=== PATIENT | female | born 1990 | race Caucasian/White ===

== ENCOUNTER → 2018-02-20 06:28 | Outpatient (CLI) | payer OTHER, SELFPAY ==
[2018-02-20 07:29] LABS: Thyroid Stim Hormone (TSH) 2.72 uIU/mL (0.358-3.74)
== END ==
PROVIDERS: Family Provider Physician Assistant; PCP Physician Assistant; Visit Provider Physician Assistant
DX: N92.6 Irregular menstruation, unspecified (principal)
CPT/HCPCS: 36415; 84443

== ENCOUNTER → 2018-11-01 14:40 | Outpatient (CLI) | payer OTHER, SELFPAY ==
[2018-08-25 11:21] VITALS: BMI 27.1
[2018-11-01 15:31] LABS: Absolute Lymphocyte Count 2.45 X10^3/ul (0.83-4.51); Absolute Neutrophil Count 9.7 X10^3/uL (2.0-7.7); Basophil# 0.03 X10^3/uL; Basophil% 0.2 % (0-1); Eosinophil# 0.09 X10^3/uL; Eosinophils% 0.7 % (0-5); Hematocrit 39.8 % (37-47); Hemoglobin 13.4 g/dl (12.0-15.0); Lymphocyte # 2.45 X10^3/ul (4.0); Lymphocyte % 18.6 % (19-41); Mean Corp Hgb Conc 33.7 g/gl (32-36); Mean Corpuscular Hgb 29.4 pg (27.0-32.0); Mean Corpuscular Volume 87.3 fL (81-99); Mean Platelet Vol. 9.8 fl (6.2-12.0); Monocyte# 0.93 X10^3/uL; Monocyte% 7.1 % (0-10); Neutrophil # 9.65 X10^3/uL (2.7-7.7); Neutrophil % 73.2 % (47-70); Platelet Count 207 K/mm3 (150-450); RBC Distribution Width CV 14.2 % (11.6-14.6); RBC Distribution Width SD 45.4 fl (35.1-43.9); Red Blood Count 4.56 M/mm3 (4.2-5.4); White Blood Count 13.2 K/mm3 (4.4-11.0)
[2018-11-01 15:32] LABS: POSITIVE COUNT NO; POSITIVE DIFFERENTIAL NO; POSITIVE MORPHOLOGY NO
[2018-11-01 17:04] LABS: HIV - WCH Non-Reactive (Nonreactive); Rubella IgG 401.7 IU/mL
[2018-11-03 13:25] LABS: HEPATITIS B SURFACE AG Negative (Negative); Hep B Surface Antibodies Reactive (.)
[2018-11-08 02:05] LABS: Rapid Plasmin Reagin (RPR) NONREACTIVE (NONREACTIVE)
== END ==
PROVIDERS: Family Provider Physician Assistant; PCP Physician Assistant; Referring Provider Obstetrics & Gynecology; Visit Provider Obstetrics & Gynecology
DX: Z34.81 Encounter for supervision of other normal pregnancy, first trimester (principal)
CPT/HCPCS: 36415; 85025; 86592; 86703; 86706; 86762; 86850; 86900; 87340

== ENCOUNTER → 2018-12-11 14:21 | Outpatient (CLI) | payer OTHER, SELFPAY ==
[2018-08-25 11:21] VITALS: BMI 27.1
--- NOTE | 2018-12-11 15:01 | EKG12_ITS ---
Test Reason : PALPS Blood Pressure : / mmHG Vent. Rate : 074 BPM Atrial Rate : 074 BPM P-R Int : 142 ms QRS Dur : 088 ms QT Int : 402 ms P-R-T Axes : 053 050 046 degrees QTc Int : 446 ms Sinus rhythm with marked sinus arrhythmia Possible Left atrial enlargement Borderline ECG Confirmed by ALYSSA PEREZ ([id number]), publications editor RICKIE WATKINS ([id number]) on 12/17/2018 11:49:31 AM Referred By: Una Ni Confirmed By:ALYSSA PEREZ
[2018-12-11 16:20] LABS: Thyroid Stim Hormone (TSH) 0.68 uIU/mL (0.358-3.74)
== END ==
PROVIDERS: Family Provider Physician Assistant; PCP Physician Assistant; Referring Provider Obstetrics & Gynecology; Visit Provider Obstetrics & Gynecology
DX: O26.92 Pregnancy related conditions, unspecified, second trimester (principal); R00.2 Palpitations; Z3A.15 15 weeks gestation of pregnancy
CPT/HCPCS: 36415; 84443; 93005

== ENCOUNTER → 2018-12-13 07:42 | Outpatient (CLI) | payer OTHER, SELFPAY ==
[2018-08-25 11:21] VITALS: BMI 27.1
== END ==
PROVIDERS: Family Provider Physician Assistant; PCP Physician Assistant; Referring Provider Obstetrics & Gynecology; Visit Provider Obstetrics & Gynecology
DX: Z34.92 Encounter for supervision of normal pregnancy, unspecified, second trimester (principal)

== ENCOUNTER → 2019-01-17 13:44 | Outpatient (CLI) | payer OTHER, SELFPAY ==
[2019-01-01 12:36] VITALS: BMI 27.6
--- NOTE | 2019-01-17 13:46 | ECHOD_ITS ---
Reason For Study: ARRHYTHMIA Procedure This was a 2D Doppler, Color Flow transthoracic echocardiogram. Exam performed in department. Left Ventricle Normal LV size. Left ventricular systolic function is normal. The estimated ejection fraction is 60 %. Normal diastology for age. No regional wall motion abnormalities noted. Right Ventricle Normal RV size. Normal systolic function. Atria Normal left atrium. Normal right atrium. Mitral Valve Normal mitral valve. Tricuspid Valve Normal tricuspid valve. Aortic Valve Normal aortic valve. Trisinus/trileaflet aortic valve. Pulmonic Valve Normal pulmonic valve. Great Vessels Normal aortic root. The pulmonary artery is normal size. Normal inferior vena cava. Pericardium/Pleural No pericardial effusion. MMode/2D Measurements & Calculations LVIDd: 4.0 cm IVSd: 0.86 cm Ao root diam: 2.4 cm LVIDs: 2.6 cm LVPWd: 0.88 cm RVDd: 3.2 cm FS: 35.3 % LAV(MOD-bp): 46.3 ml LA A4 area: 17.6 cm2 LA dimension(2D): 3.4 cm LAV(MOD-bp) Indexed: 27.4 ml/m2 LAV(MOD-sp2): 43.0 ml LAV(MOD-sp4): 49.6 ml RA A4 area: 10.1 cm2 Time Measurements MV dec time: 0.18 sec Doppler Measurements & Calculations MV E max abel: 93.7 cm/sec Lat Peak E' Abel: 16.3 cm/sec Med Peak E' Abel: 14.3 cm/sec MV A max abel: 63.9 cm/sec E/E' lat: 5.7 E/E' med: 6.6 MV E/A: 1.5 Ao V2 max: 126.6 cm/sec LV V1 max: 110.9 cm/sec PA V2 max: 89.4 cm/sec Ao max P.4 mmHg LV V1 max P.9 mmHg TR max abel: 172.2 cm/sec TR max P.9 mmHg Interpretation Summary Normal LV size. Left ventricular systolic function is normal. The estimated ejection fraction is 60 %. Normal diastology for age. Structurally normal valves. Ordering Physician: Jason Singh Referring Physician: LEOINE GOODEN Performed By: Molly Viveros, ELADIOCS, RVT
== END ==
PROVIDERS: Family Provider Physician Assistant; PCP Physician Assistant; Referring Provider Internal Medicine Cardiovascular Disease; Visit Provider Internal Medicine Cardiovascular Disease
DX: I49.9 Cardiac arrhythmia, unspecified (principal); R94.31 Abnormal electrocardiogram [ECG] [EKG]
CPT/HCPCS: 93306

== ENCOUNTER → 2019-02-21 10:18 | Outpatient (CLI) | payer OTHER, SELFPAY ==
[2019-01-01 12:36] VITALS: BMI 27.6
[2019-02-21 11:57] LABS: Absolute Lymphocyte Count 2.29 X10^3/uL (0.83-4.51); Absolute Neutrophil Count 9.4 X10^3/uL (2.0-7.7); Basophil# 0.03 X10^3/uL; Basophil% 0.2 % (0-1); Eosinophil# 0.11 X10^3/uL; Eosinophils% 0.9 % (0-5); Hemoglobin 11.9 g/dL (12.0-15.0); Lymphocyte # 2.29 X10^3/ul (4.0); Lymphocyte % 18.1 % (19-41); Mean Corp Hgb Conc 33.1 g/dL (32-36); Mean Corpuscular Volume 93.8 fL (81-99); Mean Platelet Vol. 9.3 fl (6.2-12.0); Monocyte# 0.71 X10^3/uL; Monocyte% 5.6 % (0-10); NRBC Flagged by Analyzer 0 % (0-5); Neutrophil % 74.2 % (47-70); Platelet Count 193 K/mm3 (150-450); RBC Distribution Width CV 13.3 % (11.6-14.6); RBC Distribution Width SD 45.6 fl (35.1-43.9); Red Blood Count 3.84 M/mm3 (4.2-5.4); White Blood Count 12.7 K/mm3 (4.4-11.0)
[2019-02-21 12:27] LABS: Glucose Challenge Gest 1H 50g 143 mg/dL (70-140)
== END ==
PROVIDERS: Family Provider Physician Assistant; PCP Physician Assistant; Referring Provider Obstetrics & Gynecology; Visit Provider Obstetrics & Gynecology
DX: Z34.82 Encounter for supervision of other normal pregnancy, second trimester (principal); Z3A.27 27 weeks gestation of pregnancy
CPT/HCPCS: 36415; 82950; 85025

== ENCOUNTER → 2019-03-04 06:44 | Outpatient (CLI) | payer OTHER, SELFPAY ==
[2019-01-01 12:36] VITALS: BMI 27.6
[2019-03-04 08:06] LABS: Glucose GTT-Gestation. Fasting 68 mg/dL (<105)
[2019-03-04 08:32] LABS: Glucose GTT-Gestational 1 Hr 153 mg/dL (<190)
[2019-03-04 09:42] LABS: Glucose GTT-Gestational 2 Hr 121 mg/dL (<165)
[2019-03-04 11:04] LABS: Glucose GTT-Gestational 3 Hr 61 L (<145)
== END ==
PROVIDERS: Family Provider Physician Assistant; PCP Physician Assistant; Referring Provider Obstetrics & Gynecology; Visit Provider Obstetrics & Gynecology
DX: R73.09 Other abnormal glucose (principal); Z36.9 Encounter for antenatal screening, unspecified
CPT/HCPCS: 36415; 82951; 82952

== ENCOUNTER 2019-05-24 07:05 | Inpatient (IN) | payer OTHER, SELFPAY ==
[2019-01-01 12:36] VITALS: BMI 27.6
[2019-05-24 07:24] VITALS: BMI 30.9
[2019-05-24] MEDS: Lactated Ringers 1,000 ML 200 ML IV ×3 (07:45→16:52)
[2019-05-24 08:28] LABS: Absolute Lymphocyte Count 2.48 X10^3/uL (0.83-4.51); Absolute Neutrophil Count 10.9 X10^3/uL (2.0-7.7); Basophil# 0.05 X10^3/uL; Basophil% 0.3 % (0-1); Eosinophils% 0.7 % (0-5); Hematocrit 37.1 % (37-47); Hemoglobin 12.2 g/dL (12.0-15.0); Lymphocyte # 2.48 X10^3/ul (4.0); Lymphocyte % 16.8 % (19-41); Mean Corp Hgb Conc 32.9 g/dL (32-36); Mean Corpuscular Hgb 30.3 pg (27.0-32.0); Mean Corpuscular Volume 92.1 fL (81-99); Mean Platelet Vol. 9.8 fl (6.2-12.0); Monocyte# 0.99 X10^3/uL; Monocyte% 6.7 % (0-10); NRBC Flagged by Analyzer 0 % (0-5); Platelet Count 188 K/mm3 (150-450); RBC Distribution Width CV 14.3 % (11.6-14.6); RBC Distribution Width SD 47.1 fl (35.1-43.9); Red Blood Count 4.03 M/mm3 (4.2-5.4); White Blood Count 14.7 K/mm3 (4.4-11.0)
[2019-05-24] MEDS: Oxytocin 30 units/NS 500 ml 30 UNITS/500 ML IV.SOLN IV (08:57)
--- NOTE | 2019-05-24 10:09 | HP.PCM_ITS ---
- Problem List (1) UTI in , antepartum Status: Acute (2) Encounter for induction of labor Status: Acute History Date of Admission: 05/24/19 Final SANTOSH: 05/17/19 Gestational age: 41 Weeks and 0 Days History of this : This is a 29 year-old, G [3], P [2001], at 41 weeks gestational age for induction of labor due to postdates. Normal course. Medical History: Medical History (Last Reviewed 01/01/19 @ 12:36 by Radha Wilson) History of herniated intervertebral disc Z87.39 Impacted cerumen, right ear H61.21 Segmental and somatic dysfunction of cervical region M99.01 Segmental and somatic dysfunction of thoracic region M99.02 history of vaginal child Allergies Penicillins Allergy (Verified 01/01/19 15:51) hives Home Medications: Home Medications vitamin,calcium,gmlkbcwl-tzfw-dttgf acid tablet 1 tab PO QDAY 09/27/17 Smoking Status: Never smoker Alcohol: None Number of Fetus(es): 1 NST - FHR Rate Baby A Baseline: 140 Variability:: Moderate Accelerations:: 15 x 15 Decelerations:: None NST Reactive:: Yes FHR Category:: Category I Uterine Activity:: Irregular, mild to palpation History Past Pregnancies: Past Pregnancies Delivery Date Name GA/ Weeks Outcome Route Wt Sex Labor Length Anesthesia Delivery Location Provider FOB Labs: Mom's Problem List Problem Status Onset Code UTI in , antepartum Acute O23.40 Encounter for induction of labor Acute Z34.90 Mom's Labs & Results 05/24/19 05/24/19 07:45 07:45 WBC 14.7 H RBC 4.03 L Hgb 12.2 Hct 37.1 MCV 92.1 MCH 30.3 MCHC 32.9 RDW Std Deviation 47.1 H RDW Coeff of Eneida 14.3 Plt Count 188 MPV 9.8 Immature Gran % (Auto) 1.500 H Neut % (Auto) 74.0 H Lymph % (Auto) 16.8 L [place] % (Auto) 6.7 Eos % (Auto) 0.7 Baso % (Auto) 0.3 Absolute Neuts (auto) 10.9 H Absolute Lymphs (auto) 2.48 Nucleated RBC % 0 Blood Type O POSITIVE Antibody Screen NEGATIVE Course Did the patient receive Yes care? Labs Blood Type: O RPR/VDRL/Syphilis Nonreactive Rubella status Immune HbSAg Negative Chlamydia Negative Gonorrhea Negative HIV/AIDS Non-Reactive Group B Strep: Negative Current Obstetrical History Gestational Diabetes No Incompetent Cervix No Infertility No IUGR No Macrosomia No Hypertension/Pre-eclampsia No Placenta Previa/Abruption No PTL/PROM No Uterine anomaly No Oligohydramnios No Polyhydramnios No Multiple gestation No Past Medical History Asthma No Diabetes No Hypertension No Heart disease No Mitral valve prolapse No Neurologic/Seizure disorder/ No Migraines Kidney disease No Liver disease No Varicosities No Clotting disorders/Hx of DVT No Thyroid Dysfunction No Other medical diseases No Psychiatric disorders No Major trauma No Abnormal PAP smear No Sleep apnea No Mammogram in the last 2 years No Social History Marital Status: Alleged father Nick Hx Smoking No Smoking Status Never smoker Review of Systems Constitutional: Denies: Chills, Fever, Weight Change HEENT: Denies: Head Aches, Sinus Congestion, Sinus Drainage Cardiovascular: Denies: Chest Pain, Palpitations Respiratory: Denies: Cough, Shortness of breath at rest, Sputum production Gastrointestinal: Denies: Abdominal Pain, Nausea, Vomiting Genitourinary: Denies: Dysuria Neurological: Denies: Numbness, Tingling, Focal weakness Psychiatric: Denies: Anxiety, Depression, Homicidal Ideations, Suicidal Ideations Physical Exam General: Alert, Oriented x3, No apparent distress HEENT: Atraumatic, Normocephalic Cardiovascular: Regular rate, Regular Rhythm, No murmurs Lungs: Clear to auscultation, Normal air movement, No rhonchi, No wheeze Abdomen: Soft, Gravid Extremities:: No edema Neurological: Deep Tendon Reflexes 2+/4 and Symmetrical. Negative for: Clonus CANDLE CUTTER: Normal external genitalia Estimated gestational size: Appropriate for gestational size Presentation: Cephalic Cervix Dilation (cm): 4 Station: -2 Effacement (%): 60 Assessment/Plan All Active Problems (Last Reviewed 01/01/19 @ 12:36 by Radha Wilson) UTI in , antepartum (Acute) Encounter for induction of labor (Acute) 20 weeks gestation of (Acute) Intermittent palpitations (Acute) Abnormal electrocardiogram (Acute) This is a 29 year-old, G [3], P [2002], at 41 weeks gestational age. A:Induction of labor for postdates Category 1 FHT P: 1) Admit to L&D. Routine labs. IV. 2) Pitocin for active management 3) Positional changes 4) Planning unmedicated , may have nubain or nitrous. Epidural at request 5) notified of admission and patient status.
--- NOTE | 2019-05-24 14:09 | PN.OBGYN_ITS ---
Patient Problems: Active and Suspected Problems (Last Reviewed 01/01/19 @ 12:36 by Radha Wilson) UTI in , antepartum (Acute) Encounter for induction of labor (Acute) Subjective: Coping well with contractions, at bedside. Rating pain 3/10. Up walking. Objective: 5/-1, vertex AROM large amount of clear fluid TOCO: q3-4min, moderate 145, moderate variability, accels, no decels, Category 1 - Physical Exam Vitals/I&O's: Weight: 169 lb 8 oz Body Mass Index (BMI) 30.9 Intake and Output for Last 24 Hours 05/22/19 05/23/19 05/24/19 23:59 23:59 23:59 Intake Total 799.60 / 799.60 Balance 799.60 / 799.60 Laboratory Results 05/24/19 07:45: WBC 14.7 H, RBC 4.03 L, Hgb 12.2, Hct 37.1, MCV 92.1, MCH 30.3, MCHC 32.9, RDW Std Deviation 47.1 H, RDW Coeff of Eneida 14.3, Plt Count 188, MPV 9.8, Immature Gran % (Auto) 1.500 H, Neut % (Auto) 74.0 H, Lymph % (Auto) 16.8 L , [place] % (Auto) 6.7, Eos % (Auto) 0.7, Baso % (Auto) 0.3, Absolute Neuts (auto) 10.9 H, Absolute Lymphs (auto) 2.48, Nucleated RBC % 0 05/24/19 07:45: Blood Type O POSITIVE, Antibody Screen NEGATIVE Current Medications Acetaminophen (Tylenol) 325 - 650 mg PO Q4H PRN PRN PRN Reason: Pain Score 1-3/10 Al Hydroxide/Mg Hydroxide (Mylanta Ii) 15 - 30 ml PO Q4H PRN PRN PRN Reason: INDIGESTION Citric Acid/Sodium Citrate (Bicitra) 30 ml PO X1 PRN PRN Reason: Section Lactated Ringer's () 500 mls @ 999 mls/hr IV .Q31M PRN PRN Reason: Epidural Lactated Ringer's () 500 mls @ 999 mls/hr IV .Q31M PRN PRN Reason: Corrective Measures Lactated Ringer's () 1,000 mls @ 50 mls/hr IV .Q20H [facility] Last Admin: 05/24/19 11:38 Dose: 200 mls/hr Documented by: Oxytocin/Sodium Chloride () 30 units in 500 mls @ 2 mls/hr IV .Q250H [facility] Last Infusion: 05/24/19 13:44 Dose: 10 mls/hr Documented by: Nalbuphine HCl (Nubain) 5 - 10 mg IV Q3H PRN PRN PRN Reason: Pain Score 4-10/10 Nalbuphine HCl (Nubain) 5 - 10 mg SC Q3H PRN PRN PRN Reason: Pain Score 4-10/10 Ondansetron HCl (Zofran) 4 mg IV Q4H PRN PRN PRN Reason: NAUSEA Prochlorperazine Edisylate (Compazine Iv) 10 mg IV Q6H PRN PRN PRN Reason: NAUSEA Sodium Chloride () 10 - 40 ml IV X1 PRN PRN Reason: SALINE FLUSH Medical Necessity - Tobacco Use Smoking Status: Never smoker Assessment/Plan All Active Problems (Last Reviewed 01/01/19 @ 12:36 by Radha Wilson) UTI in , antepartum (Acute) Encounter for induction of labor (Acute) 20 weeks gestation of (Acute) Intermittent palpitations (Acute) Abnormal electrocardiogram (Acute) A:Induction of labor, progressing Category 1 FHT P: 1) Still in early labor. offered ROM, patient consented and tolerated well 2) Continue with pitocin 3) Positional changes
--- NOTE | 2019-05-24 18:10 | PCM.OPRPT ---
Problem List (1) UTI in , antepartum Status: Acute (2) Encounter for induction of labor Status: Acute (3) Vaginal delivery Status: Acute Vaginal Delivery Maternal Presentation: Medically Indicated Induction Method of Induction: Pitocin Amniotic Membrane Rupture Type: Artificial Amniotic Fluid Description: Clear Final SANTOSH: 05/17/19 Gestational age: 41 Weeks and 0 Days Date of Procedure: 05/24/19 Pre-Operative Diagnosis: Induction of Labor Post-Operative Diagnosis: Surgery/ Procedure Performed: Spontaneous Vaginal Delivery Type of Anesthesia: None Description of Procedure: Progressed to complete with strong urge to push. of viable female over intact perineum without anesthesia. APGARS 8,9. Infant head delivered with body forthcoming. CAN x1, delivered through. FOB assisted passing baby to mom's chest. Spontaneous cry, mouth and nares suctioned for secretions. Pitocin started for active 3rd stage management. Delayed cord clamping. Cord clamped and cut after pulsations ceased by FOB. Perineum inspected and revealed intact perineum, no repair needed. Vaginal sweep completed. Fundus firm, hemostasis achieved, EBL 200ml. Sponge and instrument count completed. Mom and baby stable, family bonding well. Planning to breastfeed. notified of delivery. Presentation: Vertex Placental Delivery Description: Spontaneous Placenta Disposition: [facility] Cord Vessel Description: 3 Vessels Cord Entanglement: Around neck x 1, loose Estimated Blood Loss: 200ml A gender: Female (1 minute): 8 (5 minute): 9 Episiotomy Description: None Laceration: None Medications given after delivery: IV Pitocin Complications: None
[2019-05-24] MEDS: Naproxen 250 MG Tablet 500 MG PO (18:25)
[2019-05-24] MEDS: Oxytocin 30 units/NS 500 ml 30 UNITS/500 ML IV.SOLN 334 UNITS IV (18:43)
--- NOTE | 2019-05-24 21:22 | NURSING ---
1945 Assisted pt up to BR, tolerated well. Pt passed baseball size clot in toilet, bleeding WNL fundus firm and at umbilicus, pt has no c/o dizziness or lightheadedness.
[2019-05-25] VITALS: BP 102/61; PULSE 85; RESP 16; TEMP 37
[2019-05-25] MEDS: Acetaminophen 500 MG Tablet 1000 MG PO ×2 (00:45→15:34)
[2019-05-25 04:00] VITALS: BP 114/68; PULSE 79; RESP 16; TEMP 36.9
[2019-05-25] MEDS: Naproxen 250 MG Tablet 500 MG PO ×3 (04:47→18:45)
[2019-05-25 05:00] LABS: Hematocrit 29.9 % (37-47); Mean Corp Hgb Conc 33.4 g/dL (32-36); Mean Corpuscular Hgb 30.7 pg (27.0-32.0); Mean Corpuscular Volume 91.7 fL (81-99); Mean Platelet Vol. 9.5 fl (6.2-12.0); Platelet Count 150 K/mm3 (150-450); RBC Distribution Width CV 14.1 % (11.6-14.6); RBC Distribution Width SD 47.2 fl (35.1-43.9); Red Blood Count 3.26 M/mm3 (4.2-5.4); White Blood Count 17.1 K/mm3 (4.4-11.0)
[2019-05-25 08:00] VITALS: BP 112/62; PULSE 82; RESP 15; TEMP 37.1
--- NOTE | 2019-05-25 11:59 | PCM.PN.OB ---
Patient Problems: Active and Suspected Problems (Last Reviewed 01/01/19 @ 12:36 by Radha Wilson) UTI in , antepartum (Acute) Encounter for induction of labor (Acute) Vaginal delivery (Acute) Acute blood loss anemia (Acute) Subjective: Doing well per patient and nursing staff. Ambulating and taking PO without difficulty. without difficulty. Pain controlled. Voiding and passing flatus. Denies chest pain, SOB, leg pain, increased vaginal bleeding or clots. Planning D/C home tomorrow - Physical Exam Vitals/I&O's: Vital Signs Temp Pulse Resp BP 98.7 F 82 15 112/62 05/25/19 08:00 05/25/19 08:00 05/25/19 08:00 05/25/19 08:00 Weight: 169 lb 8 oz Body Mass Index (BMI) 30.9 Intake and Output for Last 24 Hours 05/23/19 05/24/19 05/25/19 23:59 23:59 23:59 Intake Total 2959.34 / 2959.34 Output Total 1000 / 1000 Balance 1959.34 / 1959.34 General: Alert, Oriented x3, Cooperative HEENT: Atraumatic, Normocephalic Neck: Trachea Midline Lungs: Clear to auscultation, Normal air movement, No rhonchi, No wheeze Cardiovascular: Regular rate, Regular Rhythm, No murmurs Abdomen: Bowel Sounds Present, - - fundus firm 3 below U. Extremities: No edema Psych/Mental Status: Normal Affect, Appropriate Laboratory Results 05/25/19 04:50: WBC 17.1 H, RBC 3.26 L, Hgb 10.0 L, Hct 29.9 L, MCV 91.7, MCH 30.7, MCHC 33.4, RDW Std Deviation 47.2 H, RDW Coeff of Eneida 14.1, Plt Count 150, MPV 9.5 Current Medications Acetaminophen (Tylenol) 1,000 mg PO Q8H PRN PRN PRN Reason: Pain Score 1-3/10 Last Admin: 05/25/19 00:45 Dose: 1,000 mg Documented by: Bisacodyl (Dulcolax) 10 mg RECTAL UD PRN PRN Reason: If no BM Dibucaine (Dibucaine) 1 applic TOPICAL TID PRN PRN; Protocol PRN Reason: Discomfort Hydrocortisone (Hytone) 1 applic TOPICAL TID PRN PRN; Protocol PRN Reason: Discomfort Methylergonovine Maleate (Methergine) 0.2 mg IM X1 PRN PRN Reason: Excess bleeding/uterine atony Naproxen (Naprosyn) 500 mg PO Q8H PRN PRN PRN Reason: Pain Score 1-3/10 Last Admin: 05/25/19 10:37 Dose: 500 mg Documented by: Ondansetron HCl (Zofran) 4 mg IV Q4H PRN PRN PRN Reason: Nausea Senna/Docusate Sodium (Senokot-S, Hayde-Colace) 1 - 2 tablet PO DAILY PRN PRN PRN Reason: Constipation Simethicone (Mylicon) 80 mg PO [facility] PRN PRN Reason: Indigestion/Stomach pain Sodium Chloride () 5 - 15 ml IV UD PRN PRN Reason: SALINE FLUSH Throat Lozenges (Dermoplast (Sp)) 1 applic TOPICAL 4X/DAY PRN PRN; Protocol PRN Reason: Pain/Inflammation Medical Necessity - Tobacco Use Smoking Status: Never smoker Assessment/Plan All Active Problems (Last Reviewed 01/01/19 @ 12:36 by Radha Wilson) UTI in , antepartum (Acute) Encounter for induction of labor (Acute) Vaginal delivery (Acute) Acute blood loss anemia (Acute) 20 weeks gestation of (Acute) Intermittent palpitations (Acute) Abnormal electrocardiogram (Acute) A:PPD #1 Blood loss anemia P: 1) Routine care 2) Hgb 10, start ferrous sulfate 325mg PO BID for acute blood loss anemia 3) Pain controlled 4) Planning D/C home tomorrow
[2019-05-25 12:56] VITALS: BP 118/57; PULSE 81; RESP 15; TEMP 36.9
[2019-05-25] MEDS: Ferrous Sulfate 325 MG Tablet PO ×2 (12:56→18:46)
[2019-05-25] MEDS: Senna/Docusate Sodium 1 Tablet PO (15:20)
[2019-05-25 16:30] VITALS: BP 123/59; PULSE 60; RESP 16; TEMP 37
[2019-05-25 20:00] VITALS: BP 112/57; PULSE 82; RESP 16; TEMP 37.2
[2019-05-26 02:30] VITALS: BP 112/64; PULSE 85; RESP 14; TEMP 36.4
--- NOTE | 2019-05-26 08:13 | PN.OBGYN_ITS ---
Patient Problems: Active and Suspected Problems (Last Reviewed 01/01/19 @ 12:36 by Radha Wilson) Acute blood loss anemia (Acute) UTI in , antepartum (Acute) Encounter for induction of labor (Acute) Vaginal delivery (Acute) Subjective: pt seen at bedside, doing well. pt reports good pain control, mild lochia. Breast feeding w/o difficulty, voiding w/o difficulty. - Physical Exam Vitals/I&O's: Vital Signs Temp Pulse Resp BP 97.5 F L 85 14 112/64 05/26/19 02:30 05/26/19 02:30 05/26/19 02:30 05/26/19 02:30 Oxygen Delivery Method Room Air Weight: 76.884 kg Body Mass Index (BMI) 30.9 Intake and Output for Last 24 Hours 05/24/19 05/25/19 05/26/19 23:59 23:59 23:59 Intake Total 2959.34 / 2959.34 Output Total 1000 / 1000 Balance 1959.34 / 1959.34 General: Alert, Oriented x3 Extremities: No Calf Tenderness Current Medications Acetaminophen (Tylenol) 1,000 mg PO Q8H PRN PRN PRN Reason: Pain Score 1-3/10 Last Admin: 05/25/19 15:34 Dose: 1,000 mg Documented by: Bisacodyl (Dulcolax) 10 mg RECTAL UD PRN PRN Reason: If no BM Dibucaine (Dibucaine) 1 applic TOPICAL TID PRN PRN; Protocol PRN Reason: Discomfort Ferrous Sulfate (Ferrous Sulfate) 325 mg PO 1200,1700 EDWINA Last Admin: 05/25/19 18:46 Dose: 325 mg Documented by: Hydrocortisone (Hytone) 1 applic TOPICAL TID PRN PRN; Protocol PRN Reason: Discomfort Methylergonovine Maleate (Methergine) 0.2 mg IM X1 PRN PRN Reason: Excess bleeding/uterine atony Naproxen (Naprosyn) 500 mg PO Q8H PRN PRN PRN Reason: Pain Score 1-3/10 Last Admin: 05/25/19 18:45 Dose: 500 mg Documented by: Ondansetron HCl (Zofran) 4 mg IV Q4H PRN PRN PRN Reason: Nausea Senna/Docusate Sodium (Senokot-S, Hayde-Colace) 1 - 2 tablet PO DAILY PRN PRN PRN Reason: Constipation Last Admin: 05/25/19 15:20 Dose: 1 tablet Documented by: Simethicone (Mylicon) 80 mg PO [facility] PRN PRN Reason: Indigestion/Stomach pain Sodium Chloride () 5 - 15 ml IV UD PRN PRN Reason: SALINE FLUSH Throat Lozenges (Dermoplast (Sp)) 1 applic TOPICAL 4X/DAY PRN PRN; Protocol PRN Reason: Pain/Inflammation Medical Necessity - Tobacco Use Smoking Status: Never smoker Assessment/Plan All Active Problems (Last Reviewed 01/01/19 @ 12:36 by Radha Wilson) Acute blood loss anemia (Acute) UTI in , antepartum (Acute) Encounter for induction of labor (Acute) Vaginal delivery (Acute) 20 weeks gestation of (Acute) Intermittent palpitations (Acute) Abnormal electrocardiogram (Acute) PPD#2, doing well routine care pain mgmt dc home
--- NOTE | 2019-05-26 08:16 | DCINST_ITS ---
Discharge Diet: No Restrictions Discharge Activity: Return to Normal Activity, May not drive while taking narcotic pain medications., May Shower May resume sexual activity in: 4-6 weeks Additional Activity Instructions:: Nothing in the vagina for 4-6 weeks. You may return to work/school in 6 weeks. Call your doctor if your incision/area has: Continuous Slow Oozing, Sudden Increased Bleeding, Increased Pain/ Swelling, Increased Redness, Foul Smelling Discharge Additional Instructions: If you experience any of the following, contact your healthcare provider. * Bleeding that soaks a pad every hour for 2 hours * Fever 100.4 or higher * Unrelieved incision or abdominal pain * Swelling, redness, discharge or bleeding from your incision or episiotomy site * Your incision begins to separate * Problems urinating (including inability to urinate or burning while urinating). * Visual changes * Severe headache * Flu-like symptoms * Pain or redness in one of both of your breasts * Pain, warmth, tenderness or swelling in your legs, especially the calf area * Frequent nausea and vomiting * Symptoms of depression or anxiety If you experience any of the following, call 911 or go to the nearest Emergency Room. * Chest pain * Problems breathing * Seizure activity * Partial or complete paralysis of a body part, slurred speech, weakness or drooping of the face, or a sudden inability to walk or hold your balance Allergies/Adverse Reactions: Allergies Penicillins Allergy (Verified 01/01/19 15:51) hives Medications to take at Discharge vitamin,calcium,vxpyaips-voyr-tsypw acid tablet 1 tab PO QDAY 09/27/17 Naproxen [Naprosyn] 500 mg PO Q8H PRN PRN #30 tab 05/26/19 The following prescriptions were given: Naproxen [Naprosyn] 500 mg PO Q8H PRN PRN #30 tab PRN Reason: Pain Score 1-3/10 Transmission Status: Pending to [facility] When: Call to make an appointment with your doctor in 6 weeks. If you had elevated Blood Pressure or 4th degree laceration you will need to be seen in 2 weeks. Primary Care Physician: Ella Viveros PA [Primary Care Provider] - Test Results: Test results from this visit will be discussed in further detail at your follow- up appointment, if applicable.
--- NOTE | 2019-05-26 08:16 | PCM.DCVAG ---
Discharge Diet: No Restrictions Discharge Activity: Return to Normal Activity, May not drive while taking narcotic pain medications., May Shower May resume sexual activity in: 4-6 weeks Additional Activity Instructions:: Nothing in the vagina for 4-6 weeks. You may return to work/school in 6 weeks. Call your doctor if your incision/area has: Continuous Slow Oozing, Sudden Increased Bleeding, Increased Pain/ Swelling, Increased Redness, Foul Smelling Discharge Additional Instructions: If you experience any of the following, contact your healthcare provider. Bleeding that soaks a pad every hour for 2 hours Fever 100.4 or higher Unrelieved incision or abdominal pain Swelling, redness, discharge or bleeding from your incision or episiotomy site Your incision begins to separate Problems urinating (including inability to urinate or burning while urinating). Visual changes Severe headache Flu-like symptoms Pain or redness in one of both of your breasts Pain, warmth, tenderness or swelling in your legs, especially the calf area Frequent nausea and vomiting Symptoms of depression or anxiety If you experience any of the following, call 911 or go to the nearest Emergency Room. Chest pain Problems breathing Seizure activity Partial or complete paralysis of a body part, slurred speech, weakness or drooping of the face, or a sudden inability to walk or hold your balance Allergies/Adverse Reactions: Allergies Penicillins Allergy (Verified 01/01/19 15:51) hives Medications to take at Discharge vitamin,calcium,hsgchdlj-yhsq-qompc acid tablet 1 tab PO QDAY 09/27/17 Naproxen [Naprosyn] 500 mg PO Q8H PRN PRN #30 tab 05/26/19 The following prescriptions were given: Naproxen [Naprosyn] 500 mg PO Q8H PRN PRN #30 tab PRN Reason: Pain Score 1-3/10 Transmission Status: Pending to [facility] When: Call to make an appointment with your doctor in 6 weeks. If you had elevated Blood Pressure or 4th degree laceration you will need to be seen in 2 weeks. Primary Care Physician: Ella Viveros PA [Primary Care Provider] - Test Results: Test results from this visit will be discussed in further detail at your follow-up appointment, if applicable.
[2019-05-26 09:00] VITALS: BP 109/74; PULSE 87; RESP 16; TEMP 37
== END 2019-05-26 12:45 | disposition home or self-care (01) | DRG 806 ==
PROVIDERS: Admitting Provider Obstetrics & Gynecology; Family Provider Physician Assistant; PCP Physician Assistant; Referring Provider Advanced Practice Midwife; Visit Provider Obstetrics & Gynecology
DX: O48.0 Post-term pregnancy (principal); D62 Acute posthemorrhagic anemia; Z37.0 Single live birth; O23.40 Unspecified infection of urinary tract in pregnancy, unspecified trimester; O90.81 Anemia of the puerperium; O69.81X0 Labor and delivery complicated by cord around neck, without compression, not applicable or unspecified; Z3A.41 41 weeks gestation of pregnancy
CPT/HCPCS: 59025; 59050; 85025; 85027; 86850; 86900; 86901; 99218; J7120; G0378

== ENCOUNTER → 2020-07-06 | Outpatient (CLI) | payer OTHER, SELFPAY ==
[2020-07-06 08:17] VITALS: BMI 26.0
[2020-07-06 10:14] LABS: Mucous, Urine 0 SEEN /hpf (<or=2+)
[2020-07-06 10:25] LABS: Color, Urine Yellow (Yellow); Glucose, Dipstick Normal (Normal); Ketone-Dipstick Negative (Negative); Leukocyte Esterase-Dipstick 500 /ul (Negative); Nitrite-Dipstick Negative (Negative); Occult Blood-Urine 250 /ul (Negative); Protein-Dipstick 15 mg/dl (Negative); Urine Bilirubin Dipstick Negative (Negative); Urine Clarity Cloudy (Clear); Urine Urobilinogen Normal (Normal); Urine pH 6.5 (5.0 - 8.0)
[2020-07-06 10:42] LABS: Red Blood Cells-Urine 0-5 SEEN /hpf (0-5); White Blood Cells 25-50 SEEN /hpf (0-5)
[2020-07-06 10:43] LABS: Squamous Epithelial Cells - UA 5-10 SEEN /hpf (5-10)
[2020-07-06 10:47] LABS: Bacteria 1+ /hpf (None Seen)
== END | disposition home or self-care (01) ==
LOC: LABSPEC 10:00
PROVIDERS: PCP Physician Assistant; Referring Provider Physician Assistant Surgical; Visit Provider Physician Assistant Surgical
DX: O23.40 Unspecified infection of urinary tract in pregnancy, unspecified trimester (principal); Z3A.00 Weeks of gestation of pregnancy not specified
CPT/HCPCS: 81001; 87086; 87088; 87186

== ENCOUNTER → 2020-09-07 | Outpatient (CLI) | payer OTHER, SELFPAY ==
[2020-09-07 16:09] LABS: Mucous, Urine 0 SEEN /hpf (<or=2+)
[2020-09-07 16:15] LABS: Color, Urine Yellow (Yellow); Glucose, Dipstick Normal (Normal); Ketone-Dipstick 15 mg/dl (Negative); Leukocyte Esterase-Dipstick 500 /ul (Negative); Nitrite-Dipstick Positive (Negative); Occult Blood-Urine 50 /ul (Negative); Protein-Dipstick Negative (Negative); Specific Gravity, Urine 1.015 (1.002-1.030); Urine Clarity Sl. Cloudy (Clear); Urine Urobilinogen 1 mg/dl (Normal)
[2020-09-07 16:17] LABS: Urine Bilirubin Dipstick 1 mg/dL (Negative)
[2020-09-07 16:23] LABS: Bacteria 1+ /hpf (None Seen); Red Blood Cells-Urine 0-5 SEEN /hpf (0-5); Squamous Epithelial Cells - UA 5-10 SEEN /hpf (5-10); White Blood Cells 25-50 SEEN /hpf (0-5)
== END | disposition home or self-care (01) ==
LOC: LABSPEC 13:35
PROVIDERS: PCP Physician Assistant; Referring Provider Physician Assistant Surgical; Visit Provider Physician Assistant Surgical
DX: R30.0 Dysuria (principal)
CPT/HCPCS: 81001; 87086; 87088; 87186

== ENCOUNTER → 2021-06-16 | Outpatient (CLI) | payer OTHER, SELFPAY | END | disposition home or self-care (01) | LOC: LABSPEC 10:33 | PROVIDERS: PCP Internal Medicine; Visit Provider Physician Assistant | DX: N39.0 Urinary tract infection, site not specified (principal) | CPT/HCPCS: 87086; 87088; 87186 ==

== ENCOUNTER → 2022-01-11 | Outpatient (CLI) | payer OTHER, SELFPAY ==
--- NOTE | 2022-01-11 14:29 | US_ITS ---
STUDY: ULTRASOUND OF THE FEMALE PELVIS - COMPLETE REASON FOR EXAM: Female, 31 years old. AUB LMP: Unsure. TECHNIQUE: Transabdominal and Transvaginal TECHNICAL QUALITY: Adequate. COMPARISON: None. FINDINGS: The uterus is anteverted and is in a midline position. The uterus measures 8.1 cm x 6.5 cm x 4.7 cm. Normal uterine cervix. The endometrium measures 3 mm in thickness, and is hyperechoic. There is no demonstrated endometrial mass. Heterogeneous echotexture of the uterine myometrium suggestive of fibroid change although no focal fibroids are seen. I.U.D. - The patient does not have an I.U.D. The right ovary is visualized. The right ovary measures 3.2 cm x 3.2cm x 2.1 cm. There is no right ovarian cyst or ovarian mass. There is no visualized right adnexal mass or complex lesion. There is normal arterial and normal venous vascularity. The left ovary is visualized. The left ovary measures 3.6 cm x 2.1 cm x 1.4 cm. There is no left ovarian cyst or ovarian mass. There is no visualized left adnexal mass or complex lesion. There is normal arterial and normal venous vascularity. There is no fluid in the cul-de-sac. The pre void volume of the bladder was 352 ml. US/Pelvic (Non ) IMPRESSION: Heterogeneous appearance of the uterus suggestive of fibroid change although no focal fibroid is seen. Electronically Signed: Travis Wong MD at 13:59 EDT ,
--- NOTE | 2022-01-11 14:29 | US_ITS ---
STUDY: ULTRASOUND OF THE FEMALE PELVIS - COMPLETE REASON FOR EXAM: Female, 31 years old. AUB LMP: Unsure. TECHNIQUE: Transabdominal and Transvaginal TECHNICAL QUALITY: Adequate. COMPARISON: None. FINDINGS: The uterus is anteverted and is in a midline position. The uterus measures 8.1 cm x 6.5 cm x 4.7 cm. Normal uterine cervix. The endometrium measures 3 mm in thickness, and is hyperechoic. There is no demonstrated endometrial mass. Heterogeneous echotexture of the uterine myometrium suggestive of fibroid change although no focal fibroids are seen. I.U.D. - The patient does not have an I.U.D. The right ovary is visualized. The right ovary measures 3.2 cm x 3.2cm x 2.1 cm. There is no right ovarian cyst or ovarian mass. There is no visualized right adnexal mass or complex lesion. There is normal arterial and normal venous vascularity. The left ovary is visualized. The left ovary measures 3.6 cm x 2.1 cm x 1.4 cm. There is no left ovarian cyst or ovarian mass. There is no visualized left adnexal mass or complex lesion. There is normal arterial and normal venous vascularity. There is no fluid in the cul-de-sac. The pre void volume of the bladder was 352 ml. US/Transvaginal Non- IMPRESSION: Heterogeneous appearance of the uterus suggestive of fibroid change although no focal fibroid is seen. Electronically Signed: Travis Wong MD at 13:59 EDT ,
== END | disposition home or self-care (01) ==
LOC: US 14:27
PROVIDERS: PCP Internal Medicine; Referring Provider Advanced Practice Midwife; Visit Provider Advanced Practice Midwife
DX: N93.9 Abnormal uterine and vaginal bleeding, unspecified (principal)
CPT/HCPCS: 76830; 76856

== ENCOUNTER → 2022-03-14 | Outpatient (CLI) | payer OTHER, SELFPAY ==
[2022-03-14 11:03] LABS: Absolute Lymphocyte Count 2.61 X10^3/uL (0.83-4.51); Absolute Neutrophil Count 4.9 X10^3/uL (2.0-7.7); Basophil# 0.06 X10^3/uL; Basophil% 0.7 % (0-1); Eosinophil# 0.19 X10^3/uL; Eosinophils% 2.3 % (0-5); Hematocrit 40.1 % (37-47); Lymphocyte # 2.61 X10^3/ul (0.83-4.51); Lymphocyte % 31.6 % (19-41); Mean Corp Hgb Conc 32.4 g/dL (32-36); Mean Corpuscular Hgb 29.3 pg (27.0-32.0); Mean Corpuscular Volume 90.3 fL (81-99); Mean Platelet Vol. 10.4 fl (6.2-12.0); Monocyte# 0.46 X10^3/uL; Monocyte% 5.6 % (0-10); NRBC Flagged by Analyzer 0 % (0-5); Neutrophil % 59.3 % (47-70); Platelet Count 278 K/mm3 (150-450); RBC Distribution Width CV 12.7 % (11.6-14.6); RBC Distribution Width SD 41.7 fl (35.1-43.9); Red Blood Count 4.44 M/mm3 (4.2-5.4); White Blood Count 8.3 K/mm3 (4.4-11.0)
[2022-03-14 11:41] LABS: Free T3 2.3 pg/mL (2.18-3.98); Prolactin 6.7 ng/mL; T4 Free Direct 1.02 ng/dL (0.76-1.46); T4 Total, Thyroxin 8.7 ug/dL (4.8-13.9); Thyroid Stim Hormone (TSH) 1.86 uIU/mL (0.358-3.74)
[2022-03-19 09:38] LABS: 17-Hydroxyprogesterone 32 ng/dL (.)
[2022-03-23 15:08] LABS: Testosterone, % Free 2.23 % (0.50-2.80); Testosterone, Free 0.62 ng/dL (0.10-0.85); Testosterone, Total 28 ng/dL (8-60)
[2022-03-24 15:25] LABS: Thyroid Peroxidase AB 8 IU/mL (0-34)
== END | disposition home or self-care (01) ==
LOC: LAB 09:53
PROVIDERS: PCP Internal Medicine; Referring Provider Advanced Practice Midwife; Visit Provider Advanced Practice Midwife
DX: N93.9 Abnormal uterine and vaginal bleeding, unspecified (principal); L68.0 Hirsutism; R53.81 Other malaise; R53.83 Other fatigue
CPT/HCPCS: 36415; 82306; 82627; 83498; 84146; 84402; 84403; 84436; 84439; 84443; 84481; 85025; 86376; 82626

== ENCOUNTER → 2023-01-03 | Outpatient (CLI) | payer OTHER, SELFPAY | END | disposition home or self-care (01) | LOC: LABSPEC 12:25 | PROVIDERS: PCP Internal Medicine; Referring Provider Physician Assistant Surgical; Visit Provider Physician Assistant Surgical | DX: R30.0 Dysuria (principal) | CPT/HCPCS: 87086; 87088 ==

== ENCOUNTER → 2023-01-09 | Outpatient (CLI) | payer OTHER, SELFPAY ==
[2023-01-10 05:12] LABS: V-Zoster IgG (Immunity) > 4000 index (Immune >165)
== END | disposition home or self-care (01) ==
PROVIDERS: PCP Internal Medicine; Referring Provider Nurse Practitioner Family; Visit Provider Nurse Practitioner Family
DX: Z78.9 Other specified health status (principal)
CPT/HCPCS: 36415; 86787

== ENCOUNTER → 2024-03-18 | Outpatient (CLI) | payer OTHER, SELFPAY ==
[2024-03-18 16:09] LABS: T4 Free Direct 0.91 ng/dL (0.76-1.46)
== END | disposition home or self-care (01) ==
LOC: BIMLAB 12:03
PROVIDERS: PCP Internal Medicine; Referring Provider Nurse Practitioner; Visit Provider Nurse Practitioner
DX: R63.5 Abnormal weight gain (principal)
CPT/HCPCS: 36415; 84439; 84443

== ENCOUNTER → 2024-03-31 | Outpatient (CLI) | payer OTHER, SELFPAY | END | disposition home or self-care (01) | LOC: LABSPEC 12:01 | PROVIDERS: PCP Internal Medicine; Referring Provider Physician Assistant; Visit Provider Physician Assistant | DX: R30.0 Dysuria (principal) | CPT/HCPCS: 87086; 87088 ==

== ENCOUNTER → 2025-01-05 | Outpatient (CLI) | payer OTHER, SELFPAY ==
--- OUTSIDE RECORDS SUMMARY | 2025-01-05 20:17 | XMS RPT_ITS | CCD ---
Author Organization [facility] CliniSyme Care Team Providers Care Insurance Case Manager Name Role Phone LEONIE GOODEN Unavailable Unavailable GOODENLEONIE Unavailable Unavailable GOODENLEONIE NASCIMENTO Unavailable Unavailable LEONIE GOODEN Unavailable Unavailable PROVIDER, UNKNOWN Unavailable Unavailable Unavailable Primary Care Provider UnavailDr. Tonny Pradhan Primary Care Provider [phone] Dr. Tonny Watson Attending Provider [phone] Dr. Tonny Watson Referring Provider [phone] Unavailable Primary Care Provider Unavailirwin locke Unavailable Primary Care Provider UnavailDr. Tonny Pradhan Primary Care Provider [phone] Dr. Tonny Watson Referring Provider [phone] Cori KEYS, MASSIMO-Jaspal Nuñez Attending Provider [phone] INES Moeller Attending Provider [phone] Unavailable Primary Care Provider UnavailMICHELLE Waller Attending Unavailable COURTNEY YOST Attending Unavailable Dr. Tonny Watson MD Primary Care Provider Dr. Tonny Watson MD Attending Provider [phone] Dr. Tonny Watson MD Referring Provider [phone] Olearmaan, Efewongbe Primary Care Unavailable Oleghe, Efewongbe Referring Unavailable Oleradhae, Efewongbe Attending Unavailable Oleghe, Efewongbe Primary Care Unavailable Oleghe, Efewongbe Referring Unavailable Luke Garza Attending Unavailable Oleghe, Efewongbe Primary Care Unavailable Omid Soto Referring Unavailable Omid Soto Attending Unavailable Keeley Hirsch Attending Unavailable Oleghe, Efewongbe Primary Care Unavailable Keeley Hirsch Referring Unavailable [facility] Primary Care Unavailable Michelle Jones Attending Unavailable [facility] Referring Unavailable Omid Soto Attending Unavailable [facility] Unavailable Keeley Hirsch [facility]ending Un[facility] Referring Unavailable [facility] Primary Care Unavailable Allergies Allergy Classification Reported Allergen(s) Allergy Type Date of Onset Reaction(s) Facility (12 sources) Penicillins; Translations: [PENICILLINS] Drug Allergy 3 [facility] Work Phone: (3 sources) Penicillins Allergy to substance 3 [facility] (7 sources) Spironolactone; Translations: [SPIRONOLACTONE] Drug Allergy 3 Other: See Comments [facility] Comment on above: UTERINE BLEEDING (1 source) Penicillins Drug Allergy 3 [facility] (1 source) Penicillins Drug allergy (disorder) 5 [facility] (1 source) Spironolactone Drug Allergy 5 [facility] Medications Current Medications Medication Drug Class(es) Dates Sig (Normalized) Sig (Original) 24 hr buPROPion hydrochloride 150 mg extended release oral tablet (6 sources) Aminoketone Start: 03-18-2024 End: 01-01-2025 take 1 tablet by mouth once daily in the morning Bupropion Hcl (Wellbutrin Xl) 150 mg tablet extended release 24 hr Active 150 mg PO EVERY MORNING 90 January 01, 2025 6:26pm hydrOXYzine hydrochloride 25 mg oral tablet (2 sources) Antihistamine Start: 03-18-2024 End: 06-06-2024 take 1 tablet by mouth three times daily as needed for anxiety Hydroxyzine Hcl 25 mg tablet Active 25 mg PO THREE TIMES A DAY as needed for anxiety 30 June 06, 2024 11:01am Generalized anxiety disorder Generalized anxiety disorder may cause drowsiness levonorgestrel 0.121730 mg/hr intrauterine system (14 sources) Progestin, Progestin-containin g Intrauterine Device Start: 01-03-2023 Levonorgestrel (Mirena) 21 mcg/24 hours (8 yrs) 52 mg intrauterine device Active 1 NMA INTRA-UTER ONCE January 03, 2023 12:00am as a single dose Start: 01-03-2023 Levonorgestrel (Mirena) 21 mcg/24 hours (8 yrs) 52 mg intrauterine device Active 1 DEVICE INTRA-UTER ONCE January 03, 2023 12:00am as a single dose Start: 12-13-2022 End: 12-13-2022 levonorgestrel 21 mcg/24 fredy rs (8 yrs) 52 mg 1 Each intrauterine device (MIRENA) Start: 04-11-2022 End: 12-12-2027 levonorgestrel (MIRENA) 21 m cg/24 hours (8 yrs) 52 mg IUD Indications: Encounter for IUD insertion 1 Each by INTRAUTERINE route as directed. 1 Each 12/13/2022 12/12/2027 Active Comment on above: 1 Each by INTRAUTERI NE route as directed. Completed/Discontinued Medications Medication Drug Class(es) Dates Sig (Normalized) Sig (Original) azithromycin 250 mg oral tablet (3 sources) Macrolide Antimicrobial Start: 06-17-2022 End: 09-29-2022 Azithromycin 250 mg tablet Discontinued 250 mg PO daily 6 0 June 17, 2022 1:00am September 29, 2022 9:26am 2 tablets today, then 1 tablet daily on days 2 through 5 calcium carbonate 1250 mg chewable tablet (8 sources) Start: 09-27-2017 End: 01-01-2019 take 1 tablet by mouth twice daily Calcium Carbonate (Calci-Chew) 500 mg calcium (1,250 mg) tablet,chewable Discontinued 500 mg PO TWICE A DAY August 25, 2018 11:22am January 01, 2019 3:51pm cephalexin 250 mg oral tablet (3 sources) Cephalosporin Antibacterial Start: 02-08-2022 End: 09-29-2022 take 1 tablet by mouth once daily Cephalexin 250 mg tablet Discontinued 250 mg PO DAILY 90 February 08, 2022 12:00am September 29, 2022 9:27am cholecalciferol 0.125 mg oral capsule (4 sources) Vitamin D Start: 02-01-2021 End: 09-29-2022 take 1 capsule by mouth once daily Cholecalciferol (Vitamin D3) 125 mcg (5,000 unit) capsule Discontinued 125 ug PO DAILY February 01, 2021 12:00am September 29, 2022 9:27am Cranberry Fruit (4 sources) Non-Standardized Food Allergenic Extract, Non-Standardized Plant Allergenic Extract Start: 10-11-2021 End: 09-29-2022 take 1 capsule by mouth once daily Cranberry Fruit 400 mg capsule Discontinued 400 mg PO DAILY October 11, 2021 12:00am September 29, 2022 9:27am administer with a meal Start: 10-11-2021 End: 09-29-2022 take 400 mg by mouth once daily Cranberry Discontinued 400 MG PO DAILY October 11, 2021 12:00am September 29, 2022 9:27am administer with a meal Start: 10-11-2021 take 400 mg by mouth once daily Cranberry Active 400 MG PO DAILY October 11, 2021 12:00am administer with a meal diaphragms, contoured (CAYA CONTOURED) 65-80 mm dprh (2 sources) Start: 07-15-2019 End: 01-16-2022 diaphragms, contoured (CAYA CONTOURED) 65-80 mm dprh Use 1 Device vaginally as needed. 1 Each 0 07/15/2019 01/16/2022 Discontinued (Course of therapy completed) Start: 07-15-2019 diaphragms, co ntoured (CAYA CONTOURED) 65-80 mm dprh Use 1 Device vaginally as needed. 1 Each 0 07/15/2019 Active Comment on above: Use 1 Device vaginal ly as needed. escitalopram 5 mg oral tablet (14 sources) Serotonin Reuptake Inhibitor Start: 03-18-2024 End: 06-06-2024 Escitalopram Oxalate 5 mg tablet Discontinued 5 mg PO daily 7 0 March 18, 2024 12:00am June 06, 2024 10:28am Take one tablet once a day for 5 days, on day 4 start wellbutrin Start: 11-22-2022 End: 12-08-2024 take 1 tablet by mouth once daily Escitalopram Oxalate 10 mg tablet Discontinued 10 mg PO DAILY 90 3 August 29, 2023 9:17am June 06, 2024 10:28am Start: 09-29-2022 End: 11-22-2022 take 1 tablet by mouth once daily Escitalopram Oxalate (Lexapro) 5 mg tablet Discontinued 5 mg PO DAILY 90 1 September 29, 2022 12:00am November 22, 2022 9:18am Comment on above: Take 10 mg by mouth once daily. 273 day ethinyl estradiol 0.041495 mg/hr / segesterone acetate 0.16690 mg/hr vaginal system (3 sources) Estrogen Start: 01-17-20 End: 05-16-20 segesterone ac-ethin estradiol (ANNOVERA) 0.15-0.013 mg/24 hour vaginal ring Use 1 Each vaginally as directed. Insert 1 ring vaginally. Following insertion, ring should remain in place for 21 continuous days (3 weeks), then removed for 7 days (1 week). 1 Each 0 01/17/2022 05/16/2022 Discontinued (Course of therapy completed) Comment on above: Use 1 Each vaginally as directed. Insert 1 ring vaginally. Following insertion, ring should remain in place for 21 continuous days (3 weeks), then removed for 7 days (1 week). lactobacillus rhamnosus gg [id number] unt chewable tablet (4 sources) Start: 02-02-20 End: 09-30-19 take 5 tablets by mouth once daily Lactobacillus Rhamnosus Gg (InitMe Probiotics) 5 billion cell tablet,chewable Discontinued 1 {tbl} PO DAILY February 01, 2021 12:00am September 29, 2022 9:27am levoFLOXacin 750 mg oral tablet (4 sources) Quinolone Antimicrobial Start: 06-15-20 End: 10-12-19 take 1 tablet by mouth once daily Levofloxacin 750 mg tablet Discontinued 750 mg PO DAILY 5 0 June 15, 2021 1:00am October 11, 2021 10:59am miSOPROStol 0.2 mg oral tablet (4 sources) Prostaglandin E1 Analog Start: 11-23-19 End: 02-29-20 miSOPROStol (CYTOTEC) 200 mcg tablet Indications: Abnormal uterine bleeding (AUB) Insert 2 tablets vaginally night prior to IUD insertion and 2 tablets morning of procedure. Each dose should be in vagina for 6-8 hours. 4 tablet 0 11/22/2022 02/28/2023 Discontinued Comment on above: Insert 2 tablets vag inally night prior to IUD insertion and 2 tablets morning of procedure. Each dose should be in vagina for 6-8 hours. naproxen 250 mg oral tablet (4 sources) Nonsteroidal Anti-inflammatory Drug Start: 05-26-20 End: 07-06-19 take 2 tablets by mouth every eight hours as needed for pain Naproxen 250 MG tablet Discontinued 500 mg PO EVERY 8 HOURS NEEDED as needed for Pain Score 1-3/10 30 0 May 26, 2019 1:00am July 06, 2020 9:44am Start: 05-26-2019 End: 07-06-2020 take 500 mg by mouth every eight hours as needed Naproxen Discontinued 500 MG PO EVERY 8 HOURS NEEDED May 26, 2019 1:00am July 06, 2020 9:44am nitrofurantoin, macrocrystals 25 mg / nitrofurantoin, monohydrate 75 mg oral capsule (12 sources) Nitrofuran Antibacterial Start: 03-31-2024 End: 04-05-2024 take 1 capsule by mouth every twelve hours at mealtime Nitrofurantoin Monohyd/M-Cryst (Macrobid) 100 mg capsule Discontinued 100 mg PO Q12H 10 5 0 March 31, 2024 12:00am April 04, 2024 12:00am April 05, 2024 12:14am must administer with a meal/food Start: 01-03-2023 End: 01-10-2023 take 1 capsule by mouth every twelve hours at mealtime Nitrofurantoin Monohyd/M-Cryst 100 mg capsule Discontinued 1 NMA PO Q12H 14 7 0 January 03, 2023 12:00am January 09, 2023 12:00am January 10, 2023 12:04am administer with a meal/food; swallow whole; do not open, crush, dissolve , or chew Start: 09-07-2020 End: 09-14-2020 take 1 capsule by mouth every twelve hours at mealtime Nitrofurantoin Monohyd/M-Cryst 100 mg capsule Discontinued 1 NMA PO Q12H 14 7 0 September 07, 2020 12:00am September 13, 2020 12:00am September 14, 2020 12:03am administer with a meal/food; swallow whole; do not open, crush, dissolve , or chew Start: 07-06-2020 End: 07-13-2020 take 1 capsule by mouth every twelve hours at mealtime Nitrofurantoin Monohyd/M-Cryst 100 mg capsule Discontinued 1 NMA PO Q12H 14 7 0 July 06, 2020 1:00am July 12, 2020 1:00am July 13, 2020 1:03am administer with a meal/food; swallow whole; do not open, crush, dissolve , or chew ondansetron 4 mg disintegrating oral tablet (4 sources) Serotonin-3 Receptor Antagonist Start: 06-15-2021 End: 10-11-2021 take 1 tablet by mouth every eight hours as needed for nausea and vomiting Ondansetron 4 mg tablet,disintegrating Discontinued 4 mg PO Q8H as needed for nausea and vomiting 15 0 June 15, 2021 1:00am October 11, 2021 10:59am phenazopyridine hydrochloride 200 mg oral tablet (9 sources) Start: 03-31-2024 End: 06-06-2024 take 1 tablet by mouth three times daily as needed for pain Phenazopyridine (Pyridium) 200 mg tablet Discontinued 200 mg PO THREE TIMES A DAY as needed for pain 6 0 March 31, 2024 12:00am June 06, 2024 10:25am Start: 06-15-2021 End: 06-17-2021 take 1 tablet by mouth three times daily as needed for pain Phenazopyridine (Pyridium) 100 mg tablet Discontinued 100 mg PO THREE TIMES A DAY as needed for pain 6 2 0 June 15, 2021 1:00am June 16, 2021 1:00am June 17, 2021 1:01am Start: 07-06-2020 End: 10-16-2020 take 1 tablet by mouth three times daily as needed for pain Phenazopyridine (Pyridium) 100 mg tablet Discontinued 100 mg PO THREE TIMES A DAY as needed for pain 6 0 0 July 06, 2020 1:00am October 16, 2020 10:19am Prenat.Vits,Luann,Khq-Fano-Jij ic (3 sources) Start: 02-01-2021 End: 09-29-2022 take 1 tablet by mouth once daily Prenat.Vits,Luann,Uhy-Qztm-Thbrn Discontinued 1 TABLET PO DAILY February 01, 2021 12:00am September 29, 2022 9:27am Start: 02-01-2021 take 1 tablet by benita th once daily Prenat.Vits,Luann,Dum-Tcgv-Xcenb Active 1 TABLET PO DAILY February 01, 2021 12:00am Prenat.Vits,Luann,Wqv-Abef-Ntm ic ( Vitamin) tablet (4 sources) Start: 09-27-2017 End: 07-06-2020 Prenat.Vits,Luann,Zwh-Zpxt-Egd ic ( Vitamin) tablet Discontinued 1 {tbl} PO daily September 27, 2017 12:00am July 06, 2020 9:45am Start: 09-27-2017 End: 07-06-2020 take 1 tablet by mouth once daily Prenat.Vits,Luann,Xxw-Aios-Xigfx ( Vitamin) tablet Discontinued 1 TABLET PO daily September 27, 2017 12:00am July 06, 2020 9:45am Prenat.Vits,Luann,Mfk-Gafz-Bgz ic tablet (1 source) Start: 02-01-2021 End: 09-29-2022 Prenat.Vits,Luann,Ybn-Twxb-Qkt ic tablet Discontinued 1 {tbl} PO DAILY February 01, 2021 12:00am September 29, 2022 9:27am Eturocqf-Um-Dqz-Fe- FA ( VITAMIN) tab (4 sources) End: 05-16-2022 take 1 tablet by mouth once Patlrsya-Nt-Rrf-Fe-FA ( VITAMIN) tab Take 1 tablet by mouth. 0 05/16/2022 Discontinued (Course of therapy completed) take 1 tablet by mouth once Pren atal Fwoptxwe-Oq-Mgf-Fe-FA ( VITAMIN) tab Take 1 tablet by mouth. 0 Active Comment on above: Take 1 tablet by benita th. spironolactone 50 mg oral tablet (12 sources) Aldosterone Antagonist Start: 05-04-20 End: 11-23-19 23 take 1 tablet by mouth once daily in the morning Spironolactone (Aldactone) 50 mg tablet Discontinued 50 mg PO EVERY MORNING May 04, 2021 1:00am November 22, 2022 9:02am Start: 03-18-2021 End: 02-28-2023 spironolactone (ALDACTONE) 1 00 mg tablet valACYclovir 1000 mg oral tablet (4 sources) Herpesvirus Nucleoside Analog DNA Polymerase Inhibitor, Herpes Simplex Virus Nucleoside Analog DNA Polymerase Inhibitor, Herpes Zoster Virus Nucleoside Analog DNA Polymerase Inhibitor Start: 10-16-2020 End: 10-23-2020 Valacyclovir 1 gram tablet Discontinued 1000 mg PO THREE TIMES A DAY 21 October 16, 2020 12:00am October 22, 2020 12:00am October 23, 2020 12:01am Start: 10-16-2020 End: 10-23-2020 take 1000 mg by mouth three times daily Valacyclovir Discontinued 1000 MG PO THREE TIMES A DAY 05 01October 16, 2020 12:00am October 23, 2020 12:01am vitamin b6 50 mg oral capsule (4 sources) Start: 09-27-2017 End: 01-01-2019 take 1 capsule by mouth once Pyridoxine (Vitamin B6) 50 mg capsule Discontinued 50 mg PO ONCE September 27, 2017 12:00am January 01, 2019 3:51pm Problems Active Problems Problem Classification Problem Date Documented Date Episodic/Chronic Acute posthemorrhagic anemia (4 sources) Acute posthemorrhagic anemia; Translations: [Acute posthemorrhagic anemia] 05-25-2019 Episodic Administrative/social admission (2 sources) Encounter for examination for admission to educational institution; Translations: [Health examination of defined subpopulations] 01-03-2023 Episodic Allergic reactions (4 sources) Inflammatory dermatosis; Translations: [Dermatitis, unspecified] 02-01-2021 Episodic Anxiety disorders (10 sources) Generalized anxiety disorder; Translations: [Generalized anxiety disorder] Onset: 4 Chronic Cardiac dysrhythmias (15 sources) Palpitations; Translations: [Palpitations] Onset: 9 02-21-2019 Episodic Complication of device; implant or graft (2 sources) IUD threads lost; Translations: [Displacement of intrauterine contraceptive device, initial encounter] Episodic Contraceptive and procreative management (20 sources) Patient encounter status; Translations: [Encounter for other general counseling and advice on contraception] Onset: 9 04-24-2019 Episodic Malaise and fatigue (1 source) Malaise and fatigue; Translations: [Other malaise] Episodic Open wounds of extremities (3 sources) Laceration of left index finger; Translations: [Laceration without foreign body of left index finger without damage to nail, initial encounter] 06-17-2022 Episodic Other complications of (15 sources) Urinary tract infection in ; Translations: [Unspecified infection of urinary tract in , unspecified trimester] Onset: 9 09-25-2018 Episodic Other female genital disorders (2 sources) Abnormal uterine bleeding; Translations: [Abnormal uterine and vaginal bleeding, unspecified] Chronic Other female genital disorders (1 source) Abnormal vaginal bleeding; Translations: [Abnormal uterine and vaginal bleeding, unspecified] 12-08-2024 Chronic Other female genital disorders (1 source) Vaginal bleeding; Translations: [Postcoital and contact bleeding] 12-08-2024 Chronic Other female genital disorders (1 source) Abnormal uterine and vaginal bleeding, unspecified; Translations: [Abnormal vaginal bleeding] Onset: 5 Chronic Other female genital disorders (2 sources) Postcoital and contact bleeding; Translations: [Postcoital and contact bleeding] Onset: 5 Chronic Other infections; including parasitic (4 sources) Personal history of other infectious and parasitic diseases; Translations: [History of COVID-19] 02-01-2021 Episodic Other nutritional; endocrine; and metabolic disorders (1 source) Unintentional weight gain; Translations: [Abnormal weight gain] 03-04-2024 Episodic Other nutritional; endocrine; and metabolic disorders (1 source) Weight increased; Translations: [Abnormal weight gain] 03-18-2024 Episodic Other and delivery including normal (6 sources) Vaginal delivery; Translations: [Encounter for full-term uncomplicated delivery] Onset: 9 Resolved: 0 02-01-2021 Episodic Comment on above: x3 Other screening for suspected conditions (not mental disorders or infectious disease) (5 sources) Electrocardiogram abnormal; Translations: [Abnormal electrocardiogram [ECG] [EKG]] 05-24-2019 Episodic Other skin disorders (1 source) Acne vulgaris; Translations: [Acne vulgaris] Episodic Other skin disorders (1 source) Hirsutism; Translations: [Hirsutism] Episodic Other upper respiratory disease (11 sources) Seasonal allergy; Translations: [Other seasonal allergic rhinitis] 04-14-2013 Chronic Residual codes; unclassified (4 sources) Gestation period, 20 weeks; Translations: [20 weeks gestation of ] 05-24-2019 Episodic Residual codes; unclassified (1 source) FH: Thyroid disorder; Translations: [Family history of other endocrine, nutritional and metabolic diseases] 12-08-2024 Episodic Residual codes; unclassified (2 sources) Family history of other endocrine, nutritional and metabolic diseases; Translations: [Family history of thyroid disease] Onset: Episodic Spondylosis; intervertebral disc disorders; other back problems (4 sources) Displacement of intervertebral disc, site unspecified, without myelopathy; Translations: [Bulging of intervertebral disc] 02-01-2021 Chronic Comment on above: cervical Urinary tract infections (10 sources) Recurrent urinary tract infection; Translations: [Urinary tract infection, site not specified] 02-08-2022 Episodic Viral infection (4 sources) Herpes zoster; Translations: [Zoster without complications] 02-01-2021 Episodic Past or Other Problems Problem Classification Problem Date Documented Date Episodic/Chronic Diabetes mellitus without complication (11 sources) Increased glucose level; Translations: [Other abnormal glucose] Onset: 02-21-2019 03-05-2019 Episodic Genitourinary symptoms and ill-defined conditions (2 sources) Increased frequency of urination; Translations: [Frequency of micturition] Onset: 04-23-2024 Episodic Medical examination/evaluatio n (1 source) Encounter for gynecological examination (general) (routine) without abnormal findings; Translations: [Encounter for gynecological examination (general) (routine) without abnormal findings] Onset: 03-30-2017 Episodic Other complications of (2 sources) size does not accord with dates; Translations: [Uterine size-date discrepancy, unspecified trimester] Onset: 09-25-2018 Resolved: 04-16-2019 04-16-2019 Episodic Other complications of (2 sources) Uterine size for dates discrepancy; Translations: [Uterine size-date discrepancy, third trimester] Onset: 05-02-2019 Resolved: 07-09-2019 07-09-2019 Episodic Other nutritional; endocrine; and metabolic disorders (1 source) Abnormal weight gain; Translations: [Abnormal weight gain] Onset: 04-13-2024 Episodic Results Test Name Value Interpretation Reference Range Facility Internal Medicine Office Vis patric 01-01-2025 Internal Medicine Office Visit [facility] [address] [place] [address] [place] [address] OFFICE VISIT Date of Service: 01/01/25 MR#: [id number] Acct: [id number] Name: LEENA HART Rep #: [id number] : 1990 Provider: Dr. Tonny lovelace MD Age/Sex: 34/F [place] [facility] Status: Signed Intake Vital Signs 06/06/24 09:30 01/01/25 17:49 Height 5 ft 2 in 5 ft 2 in Weight: 147 lb 6 oz BMI 26.9 BP 98/60 Blood Pressure Location Lt brachial Position Sitting Respiration 16 Pulse 78 Pulse Source Monitor Temp 97 F L Temp Source Temporal Pulse Oximetry (%) 99 Oxygen Delivery Method room air Intake Visit Reasons: med check Chief Complaint: med f/u/yearly visit. Loft 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: No Accompanied by: Self Is patient in pain?: No Allergies spironolactone (From Aldactone) Allergy (Intermediate, Verified 01/01/25 17:46) Other Penicillins Allergy (Mild, Verified 01/01/25 17:46) Rash Medications ???Medication ???Instructions ???Recorded ???Confirmed ???Type levonorgestrel (Mirena) 1 device intrauterine ONCE 3 01/01/25 History hydroxyzine HCl 25 mg tablet 25 mg PO TID PRN anxiety #30 tabs 06/06/24 01/01/25 Rx bupropion HCl 150 mg 24 hr tablet, 150 mg PO QAM #90 tabs 01/01/25 01/01/25 Rx extended release (Wellbutrin XL) Nurse's Note: doing well [facility] Medical History (Updated 01/01/25 @ 18:[address] Tonny Watson MD) Anxiety and depression Laceration of left index finger Generalized anxiety disorder Preventative health care Dermatitis History of COVID-19 Shingles Bulging disc Frequent UTI Impacted cerumen, right ear history of vaginal child Segmental and somatic dysfunction of thoracic region Segmental and somatic dysfunction of cervical region History of herniated intervertebral disc Family History Other Alcoholism in family Anemia Anxiety CAD (coronary artery disease) CVA (cerebral vascular accident) Hypertension Kidney disease Thyroid disorder Social History Smoking Status: Never smoker alcohol intake: current alcohol intake frequency: holidays/special occasions only substance use type: does not use what type of physical activity do you participate in: walking and other details: cross fit frequency: 1-2 times per week HPI HPI Chief Complaint: med f/u/yearly visit. Details: LEENA HART, is a 34-year-old female presenting for follow-up/yearly visit. History of anxiety and depression. She was previously on Lexapro for anxiety, which she started in 2019 or 2020, but switched to Wellbutrin due to weight gain associated with Lexapro. The patient reports feeling stable on Wellbutrin without any side effects. The patient is currently experiencing a challenging period, having recently lost her mother and being in graduate school, which contributes to her stress levels. Otherwise, she states that she is doing well. Follows up closely with her CLINICAL SCIENCES PROFESSOR Dr. Villarreal at the [facility]. No known family history of colon cancer. Stays active. No tobacco or alcohol abuse. Attestation: Documentation on this patient encounter was supported using ambient scribe technology/ voice AI technology. The patient consented to recording for the purpose of documenting the encounter. Provider reviewed content of the generated note prior to signature. ROS Const Constitutional: No body ache, excessive sweating, fatigue, fever(s), frequent falls, headache(s), snoring, weakness, weight change, sleep problems or change in appetite Eyes Eyes: No blurry vision, change in vision, vision loss, dry eyes, eye pain or Light sensitivity ENT ENT: No abnormal hearing, ear or mastoid pain, tinnitus, dizziness/vertigo, nasal congestion, headache(s), neck pain or sore throat Resp Respiratory: No cough, shortness of breath, snoring or wheezing Cardio Cardiology: No chest pain at rest, chest pain with exertion, excessive sweating, shortness of breath, dyspnea on exertion, lightheadedness, orthopnea or palpitations Gastro GI: No abdominal pain, change in bowel habits, constipation, cramping, diarrhea, nausea/dyspepsia or vomiting Genitourinary-Female: No burning urination, painful urination, urinary incontinence, urinary frequency, blood in urine, abnormal periods or pelvic pain Musc Musculoskeletal: No abnormal gait, joint pain, back pain, limited range of motion, neck pain, numbness, stiffness, tingling or Arthritis Skin Skin: No dry skin, redness, lesions, itchy eyes, rash or wounds Neuro Neurology: No abnormal gait, abnormal hearing, abnormal speech, dizziness, weakness, frequent falls, headache(s), memory loss, numbness or tingling Psych Psychiatric: No anxiety, No change in appet (more content not included)... Normal [facility] BACTERIAL VAGINOSIS NAATon 0 12-08-2024 Interpretation and review of laboratory results Normal [facility] Lactobacillus crispatus+gasseri+ jensenii + Gardnerella vaginalis + Atopobium vaginae rRNA MACHO+probe Ql (Vag fld) Not detected Not detected [facility] Lactobacillus crispatus+gasseri+ jensenii + Gardnerella vaginalis + Atopobium vaginae rRNA MACHO+probe Ql (Vag fld) Not detected Normal Not detected [facility] Comment on above: Order Comment: Speci men Type: SWAB Ordering Facility: [facility] Address: [address] [place] [address] Performed By: #### B VAMP, CVTV #### [facility] CLIA [id number] [address] [place] [address] [place] RELL/TRICHOMONAS NAATon 0 12-08-2024 C. glabrata RNA MACHO+probe Ql (Vag fld) Not detected Not detected [facility] Rell sp DNA MACHO+probe Ql (Vag fld) Not detected Not detected [facility] Comment on above: The Rell species group target includes C. albicans, C. tropicalis, C. parapsilosis, and C. dubliniensis. Interpretation and review of laboratory results Normal [facility] T. vaginalis DNA MACHO+probe Ql (Unsp spec) Not detected Not detected [facility] C. glabrata RNA MACHO+probe Ql (Vag fld) Not detected Normal Not detected [facility] Comment on above: Order Comment: Speci men Type: SWAB Ordering Facility: [facility] Address: [address] [place] [address] Performed By: #### B VAMP, CVTV #### [facility] CLIA [id number] [address] [place] [address] [place] Rell sp DNA MACHO+probe Ql (Vag fld) Not detected Normal Not detected [facility] Comment on above: Order Comment: Speci men Type: SWAB Ordering Facility: [facility] Address: [address] [place] [address] Result Comment: The Rell species group target includes C. albicans, C. tropicalis, C. parapsilosis, and C. dubliniensis. Performed By: #### B VAMP, CVTV #### [facility] CLIA [id number] [address] [place] [address] T. vaginalis DNA MACHO+probe Ql (Unsp spec) Not detected Normal Not detected [facility] Comment on above: Order Comment: Speci men Type: SWAB Ordering Facility: [facility] Address: [address] [place] [address] Performed By: #### B VAMP, CVTV #### [facility] CLIA [id number] [address] [place] [address] OF [place] CNOVon 12-08-2024 CNOV Office Visit (OBGYWM ) -- LEENA HART ([id number]) 1990 F UPA Date Time Provider Department 12/08/24 2:00 PM MICHELLE JONES OBGYWM During your visit today, we recorded the following information about you: Blood pressure Weight Last Period 100/72 65.8 kg 12/08/22 Michelle Jones APRN.CNM 12/08/2024 4:00 PM Signed Obstetrics and Gynecology [place] CLINICAL SCIENCES PROFESSOR Visit Subjective Recording using [employer] software for draft documentation of the visit was discussed with the patient/authorized account services representative; all questions welcomed and answered. Patient/authorized account services representative agreed to proceed CHIEF COMPLAINT: Postcoital bleeding HPI: The patient is a 34-year-old female presenting with postcoital bleeding. The patient reports experiencing painless, bright red bleeding during intercourse over the past 6 weeks. The bleeding is not consistent with every encounter but is described as significant when it occurs. She denies any associated cramping or pain and has not experienced bleeding at other times. She notes minimal menstrual activity, with occasional spotting 1-2 days per month but no regular periods since the insertion of her IUD in March 2022. The IUD was initially expelled, which she attributes to cramping caused by Aldactone. After discontinuing Aldactone, the cramping ceased, and the IUD was successfully reinserted. She reports an increase in vaginal discharge recently. She denies concerns for STDs. She has a family history of thyroid issues, with her sister having had partial thyroidectomy and current thyroid nodules. She is unsure if she has had a thyroid check within the last year but believes she has had one in the past 3 years. 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 History Comments: Sexual Activity: Yes; Male Contraception: Vasectomy PAST MEDICAL HISTORY Diagnosis Date Back pain Hx of infectious mononucleosis Neck pain Seasonal allergies PAST SURGICAL HISTORY Procedure Laterality Date MIRENA IUD 12/13/2022 FAMILY HISTORY Problem Relation Age of Onset Arthritis Mother RA other (CHF) Mother GI Father reflux Thyroid Sister Hypothyroidism Heart Maternal Grandmother Hypertension Maternal Grandmother Stroke Maternal Grandmother Lipids Maternal Grandmother Lipids Maternal Grandfather COPD Paternal Grandmother Lung Cancer Paternal Grandmother Kidney Disease Paternal Grandfather Dementia Paternal Grandfather other (Aortic Aneurysm) Paternal Grandfather No Known Problems Daughter No Known Problems Son Social History Tobacco Use Smoking status: Never Smokeless tobacco: Never Vaping Use Vaping status: Never Used Substance Use Topics Alcohol use: No Drug use: Never Current Outpatient Medications Medication Sig buPROPion XL (WELLBUTRIN XL) 150 mg 24 hr tablet Take 150 mg by mouth once daily. levonorgestrel (MIRENA) 21 mcg/24 hours (8 yrs) 52 mg IUD 1 Each by INTRAUTERINE route as directed. escitalopram oxalate (LEXAPRO) 10 mg tablet Take 10 mg by mouth once daily. No current facility-administered medications for this visit. ALLERGIES Allergen Reactions Spironolactone Other: See Comments Penicillins Rash REVIEW OF SYSTEMS: Genitourinary: (+) postcoital vaginal bleeding, (+) amenorrhea, (+) increased vaginal discharge, (-) pelvic cramping, (-) dyspareunia Objective SENSITIVE EXAM: The sensitive examination was discussed with the Patient or Patient's Authorized Supervisor Fleshing. As applicable, any other physician, advance practice provider, medical student, or other health professional student that will be observing or involved in the sensitive examination for educational or training purposes was discussed with the Patient or Authorized Supervisor Fleshing. The Patient or Authorized Supervisor Fleshing has agreed to proceed with the sensitive examination. (Sensitive examination includes inspection and/or palpation of the breasts, pelvis, prostate and anorectal regions). PHYSICAL EXAM: BP 100/72 Wt 145 lb (65.8kg) LMP 12/08/2022 GENERAL: Pleasant; in no apparent distress BREAST: soft, non-tender, symmetric, no dominant mass, normal nipple-areolar complex, no lymphadenopathy, no nipple discharge PULMONARY: normal inspiratory effort ABDOMEN: soft, non-tender, no masses : - PELVIC: external genitalia normal, normal Bartholin's glands, urethra, [place]'s glands, no vulvar lesions, cervix mildly friable with very mild bleeding, no cervical polyps visualized, good vaginal support, yellow vaginal discharge present, normal appearing perineal body and perianal region, IUD in place - BIMANUAL: uterus normal size, shape and consistency, no adnexal masses, (more content not included)... Normal [facility] Internal Medicine Office Vis patric 06-06-2024 Internal Medicine Office Visit [facility] [address] [place] [address] [place] [address] OFFICE VISIT Date of Service: 06/06/24 MR#: [id number] Acct: [id number] Name: LEENA HART Rep #: [id number] : 1990 Provider: INES Germain Age/Sex: 34/F Location[place] [facility] Status: Signed Intake Vital Signs 03/31/24 09:47 06/06/24 09:30 Height 5 ft 2 in 5 ft 2 in Weight: 150 lb 149 lb BMI 27.4 27.2 BP 124/82 H 116/70 Blood Pressure Location Lt brachial Lt brachial Position Sitting Sitting Respiration 16 16 Pulse 84 111 H Pulse Source Monitor Monitor Temp 98.2 F 97.6 F L Temp Source Temporal Temporal Pulse Oximetry (%) 98 97 Oxygen Delivery Method room air room air Intake Visit Reasons: ACUTE MED FU Chief Complaint: med f/u 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: No Accompanied by: Self Is patient in pain?: No Allergies spironolactone (From Aldactone) Allergy (Intermediate, Verified 06/06/24 09:25) Other Penicillins Allergy (Mild, Verified 06/06/24 09:25) Rash Medications ???Medication ???Instructions ???Recorded ???Confirmed ???Type levonorgestrel (Mirena) 1 device intrauterine ONCE 01/03/23 06/06/24 History bupropion HCl 150 mg 24 hr tablet, 150 mg PO QAM #90 tabs 06/06/24 06/06/24 Rx extended release (Wellbutrin XL) hydroxyzine HCl 25 mg tablet 25 mg PO TID PRN anxiety #30 tabs 06/06/24 06/06/24 Rx PFSH Medical History Laceration of left index finger Generalized anxiety disorder Preventative health care Dermatitis History of COVID-19 Shingles Bulging disc Frequent UTI Impacted cerumen, right ear history of vaginal child Segmental and somatic dysfunction of thoracic region Segmental and somatic dysfunction of cervical region History of herniated intervertebral disc Family History Other Alcoholism in family Anemia Anxiety CAD (coronary artery disease) CVA (cerebral vascular accident) Hypertension Kidney disease Thyroid disorder Social History Smoking Status: Never smoker alcohol intake: current alcohol intake frequency: holidays/special occasions only substance use type: does not use what type of physical activity do you participate in: walking and other details: cross fit frequency: 1-2 times per week HPI HPI Chief Complaint: med f/u Details: LEENA HART, is a 34 F who presents to the office today for f/u on her medication since changing to the Wellbutrin approximately 2 months ago. Patient states that the transition was a little difficult but once she was on it for a while she feels like things are going well with the medication. She has not had any side effects or issues that she can tell and feels like the medicine is working well. She states that they recently had a in the family and although it has been hard feels like she is doing well with this. She has had a little difficulties with her sleep feeling a little bit anxious at night and therefore she has used the hydroxyzine at nighttime which has calmed her down and actually helped her sleep some. At this time patient has no concerns or complaints and is very pleased with how the medicine is working. ROS Const Constitutional: No body ache, chills, excessive sweating, fatigue, fever(s), frequent falls, headache(s), snoring, weakness or change in appetite Eyes Eyes: No blurry vision, change in vision, eye pain or Light sensitivity ENT ENT: No abnormal hearing, ear or mastoid pain, tinnitus, nasal congestion, headache(s), neck pain or sore throat Resp Respiratory: No cough, shortness of breath, snoring or wheezing Cardio Cardiology: No chest pain at rest, chest pain with exertion, excessive sweating, dyspnea on exertion, lightheadedness, orthopnea or palpitations Gastro GI: No abdominal pain, change in bowel habits, constipation, cramping, diarrhea, nausea/dyspepsia or vomiting Genitourinary-Female: No burning urination, painful urination, urinary incontinence or urinary frequency Musc Musculoskeletal: No abnormal gait, joint pain, back pain, limited range of motion, muscle weakness, neck pain or numbness Skin Skin: No dry skin, redness, lesions, itchy eyes, rash or wounds Neuro Neurology: No abnormal gait, abnormal hearing, weakness, frequent falls, headache(s), memory loss or numbness Psych Psychiatric: No anxiety, No change in appetite, No depression, No memory loss and No Thoughts of harming yourself/Others Endo Endocrine: No cold intolerance, excessive sweating, fatigue, flushing, heat intolerance, increased thirst/drinking or increased hunger Aller/Imm Allergy/Immunologic: No itchy eyes, seasonal allergy symptoms, hives or wheezing Jeison/Lymp Hematologic/Lymphat (more content not included)... Normal [facility] Urine Cultureon 04-01-2024 URC Mixed Gram Pos Gram Neg Org [place] Count 1000-10,000 MIXC Mixed contaminants. Submit a new specimen if indicated. Normal [facility] Comment on above: Performed By: #### M [id number] #### [facility] [address] [place], [address] Urgent Care Visit Reporton 1 Urgent Care Visit Report [facility] [address] , [address] [place] [address] OFFICE VISIT Date of Service: 03/31/24 MR#: [id number] Acct: [id number] Name: LEENA HART Rep #: [id number] : 1990 Provider: INES Sears Age/Sex: 34/F Location: [facility] Status: Signed Intake Vital Signs 03/18/24 11:33 03/31/24 09:47 Height 5 ft 2 in 5 ft 2 in Weight: 156 lb 150 lb BMI 28.5 27.4 BP 112/70 124/82 H Blood Pressure Location Lt brachial Lt brachial Position Sitting Sitting Respiration 14 16 Pulse 66 84 Pulse Source Monitor Monitor Temp 97 F L 98.2 F Temp Source Temporal Temporal Pulse Oximetry (%) 99 98 Oxygen Delivery Method room air room air Intake Visit Reasons: UTI CONCERN Chief Complaint: DYSURIA Loft 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: No Accompanied by: Self Is patient in pain?: No Allergies spironolactone (From Aldactone) Allergy (Intermediate, Verified 03/31/24 09:48) Other Penicillins Allergy (Mild, Verified 03/31/24 09:48) Rash Medications ???Medication ???Instructions ???Recorded ???Confirmed ???Type levonorgestrel 21 mcg/24 hr (up to 1 device intrauterine ONCE 01/03/23 03/31/24 History 8 years) 52 mg intrauterine device (Mirena) escitalopram oxalate 10 mg tablet 10 mg PO DAILY #90 tabs 08/29/23 03/31/24 Rx bupropion HCl 150 mg 24 hr tablet, 150 mg PO QAM #30 tabs 03/18/24 03/31/24 Rx extended release (Wellbutrin XL) escitalopram oxalate 5 mg tablet 5 mg PO QDAY #7 tabs 03/18/24 03/31/24 Rx hydroxyzine HCl 25 mg tablet 25 mg PO TID PRN anxiety #30 tabs 03/18/24 03/31/24 Rx nitrofurantoin 100 mg PO Q12H 5 days #10 caps 03/31/24 03/31/24 Rx monohydrate/macrocrystals 100 mg capsule (Macrobid) phenazopyridine 200 mg tablet 200 mg PO TID PRN pain 6 doses #6 03/31/24 03/31/24 Rx (Pyridium) tabs Nurse's Note: pt states she has burning, frequency and urine is cloudy since Sunday. [facility] Medical History Laceration of left index finger Generalized anxiety disorder Preventative health care Dermatitis History of COVID-19 Shingles Bulging disc Frequent UTI Impacted cerumen, right ear history of vaginal child Segmental and somatic dysfunction of thoracic region Segmental and somatic dysfunction of cervical region History of herniated intervertebral disc Family History Other Alcoholism in family Anemia Anxiety CAD (coronary artery disease) CVA (cerebral vascular accident) Hypertension Kidney disease Thyroid disorder Social History Smoking Status: Never smoker alcohol intake: current alcohol intake frequency: holidays/special occasions only substance use type: does not use what type of physical activity do you participate in: walking and other details: cross fit frequency: 1-2 times per week HPI HPI Chief Complaint: DYSURIA Details: LEENA HART, is a 34 F who presents to the office today for [facility] evaluation at [facility] for approximately 3-4 day history of dysuria and urinary frequency with suprapubic pressure. Also appreciates occasional chills with nasal congestion and trace myalgias though no complaints of fever, sweats, lightheadedness/dizziness, nausea/vomiting, or chest pain/shortness of breath/dyspnea on exertion/back pain. Declining POC screening for COVID-19 and influenza. No changes in color/ character of urine or stool. No pskj-dgw-gdywyeu products taken to assist. No other associated symptoms and no alleviating/aggravating factors. ROS Const Constitutional: No other (As above) Exam Const General: cooperative, healthy appearing and no acute distress Orientation: alert, awake and oriented x3 HENMT Mucous membranes moist and pink throughout without compromise; no frontal or maxillary sinus pressure/pain to palpation Chest Chest palpation inspection: normal inspection of the chest Resp Effort Inspection: normal respiratory effort and able to speak in complete sentences Auscultation: Bilateral: Clear to Auscultation Cardio Palpation: normal PMI Rate: regular rate Rhythm: regular rhythm Heart Sounds: S1 normal, S2 normal, no gallops, no murmurs and no rubs Pulses: radial pulses present GI Inspection: normal to inspection Palpation: soft and tender suprapubic (Patient describes upon self-palpation) General: No CVA tenderness Skin General: no rashes or lesions noted Neuro General: patient alert, patient awake and patient oriented x3 Cognition: normal cognition Speech: speech normal Psych Appearance: grossly normal Mental Status: mental status grossly normal Mood: congruent mood Affect: normal affect Speech and Movement: speech and mo (more content not included)... Normal [facility] Internal Medicine Office Vis patric 03-18-2024 Internal Medicine Office Visit [facility] [address] [place] [address] [place] [address] OFFICE VISIT Date of Service: 03/18/24 MR#: [id number] Acct: [id number] Name: LEENA HART Rep #: [id number] : 1990 Provider: ANDREW gomes Age/Sex: 34/F Location: [facility] Status: Signed Intake Vital Signs 08/29/23 09:06 03/18/24 11:33 Height 5 ft 2 in 5 ft 2 in Weight: 154 lb 156 lb BMI 28.1 28.5 BP 114/66 112/70 Blood Pressure Location Lt brachial Lt brachial Position Sitting Sitting Respiration 17 14 Pulse 83 66 Pulse Source Monitor Monitor Temp 97.5 F L 97 F L Temp Source Temporal Temporal Pulse Oximetry (%) 98 99 Oxygen Delivery Method room air room air Intake Visit Reasons: acute - med discussion Chief Complaint: Yearly Visit Loft 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: No Is patient in pain?: No Allergies spironolactone (From Aldactone) Allergy (Intermediate, Verified 03/18/24 11:29) Other Penicillins Allergy (Mild, Verified 03/18/24 11:29) Rash Medications ???Medication ???Instructions ???Recorded ???Confirmed ???Type levonorgestrel 21 mcg/24 hr (up to 1 device intrauterine ONCE 01/03/23 03/18/24 History 8 years) 52 mg intrauterine device (Mirena) escitalopram oxalate 10 mg tablet 10 mg PO DAILY #90 tabs 08/29/23 03/18/24 Rx bupropion HCl 150 mg 24 hr tablet, 150 mg PO QAM #30 tabs 03/18/24 03/18/24 Rx extended release (Wellbutrin XL) escitalopram oxalate 5 mg tablet 5 mg PO QDAY #7 tabs 03/18/24 03/18/24 Rx hydroxyzine HCl 25 mg tablet 25 mg PO TID PRN anxiety #30 tabs 03/18/24 03/18/24 Rx Nurse's Note: Was mentioned during her annual that lexapro can cause weight gain and she's gained about 17 lbs in a year. Was mentioned that wellbutrin can help w/ weight but discuss w/ pcp. Feels good on lexapro and feels it is effective. Has been on it about a year and a half. [facility] Medical History Laceration of left index finger Generalized anxiety disorder Preventative health care Dermatitis History of COVID-19 Shingles Bulging disc Frequent UTI Impacted cerumen, right ear history of vaginal child Segmental and somatic dysfunction of thoracic region Segmental and somatic dysfunction of cervical region History of herniated intervertebral disc Family History Other Alcoholism in family Anemia Anxiety CAD (coronary artery disease) CVA (cerebral vascular accident) Hypertension Kidney disease Thyroid disorder Social History Smoking Status: Never smoker alcohol intake: current alcohol intake frequency: holidays/special occasions only substance use type: does not use what type of physical activity do you participate in: walking and other details: cross fit frequency: 1-2 times per week HPI HPI Chief Complaint: Yearly Visit Details: LEENA HART, is a 34 F who presents to the office today for medication concerns. She reports she was prescribed lexapro 1.5 years ago for TOMASZ. She reports Lexapro works well to control her anxiety symptoms which previously included feeling on edge, excessive worrying, heart racing, and difficulty sleeping. She also completed 2 years of counseling which she found helpful. After beginning the medication she has noticed a gradual weight gain. She reports a 14lb weight gain over the past year. She reports her eating patterns have remained the same, however, she is more sedentary and in grad school. She reports she walks multiple days a week and does crossfit a few days a week. She spoke with weight management with womens care at [facility], and was recommended to implement dietary changes such as increasing protein and walking after meals. She has been doing this for the past few weeks and has noticed this is help with food cravings. She has not noticed any changes in her weight over the past few weeks with dietary changes. She is interested in switching Lexapro to Wellbutrin to help with weight management. ROS Const Constitutional: Positive for weight change; No body ache, chills, excessive sweating, fatigue, fever(s), frequent falls, headache(s), snoring, weakness, sleep problems or change in appetite Eyes Eyes: No blurry vision, change in vision, eye pain or Light sensitivity ENT ENT: No abnormal hearing, ear or mastoid pain, tinnitus, nasal congestion, headache(s), neck pain or sore throat Resp Respiratory: No cough, shortness of breath, snoring or wheezing Cardio Cardiology: No chest pain at rest, chest pain with exertion, excessive sweating, shortness of breath, dyspnea on exertion, lightheadedness, orthopnea or palpitations Gastro GI: No abdominal pain, change in bowel habits, constipation, c (more content not included)... Normal [facility] T4 Free Directon 03-18-2024 T4 FREE DIRECT 0.91 ng/dL Normal 0.76-1.46 [facility] Comment on above: Performed By: #### L 506.0400, [id number] #### [facility] [address] [place], [address] Thyroid Stim Hormone (TSH)on 03-18-2024 TSH 1.210 uIU/mL Normal 0.358-3.740 [facility] Comment on above: Performed By: #### L 506.0400, [id number] #### [facility] [place], [address] CNOVon 03-04-2024 CNOV Office Visit (OBGYWM ) -- LEENA HART ([id number]) 1990 F UPA Date Time Provider Department 03/04/24 11:30 AM COURTNEY YOST During your visit today, we recorded the following information about you: Blood pressure Weight Height 114/60 70.8 kg 1.575 m Courtney Yost APRN.CNP 03/04/2024 12:29 PM Signed Site Coordinator offered: Patient declines. Schwartz is a 33 year old who presents for an annual gynecologic exam with complaints of weight gain. 14 lb weight gain in past year. Started escitalopram 1-1.5 years ago for anxiety. 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 Menses: occasional spotting with IUD inserted 12/13/2022 Mirena Contraception: vasectomy HPV vaccine: No Last Pap: 07/15/2019 normal HPV: 07/14/2019 negative History of abnormal pap: No Last mammogram: never Sexually active: Yes History of STDS: None Patient concerns for STD exposure: No. Time with current partner: long-term Pain with intercourse: random Postcoital bleeding: random blood tinged discharge next day Documentation from previous visit of 02/28/2023 was copied and pasted, documentation has been reviewed and edited as necessary for today's visit. 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: Sexual Activity: Yes; Male Contraception: Vasectomy PAST MEDICAL HISTORY Diagnosis Date Back pain Hx of infectious mononucleosis Neck pain Seasonal allergies PAST SURGICAL HISTORY Procedure Laterality Date MIRENA IUD 12/13/2022 FAMILY HISTORY Problem Relation Age of Onset Arthritis Mother RA other (CHF) Mother GI Father reflux Thyroid Sister Hypothyroidism Heart Maternal Grandmother Hypertension Maternal Grandmother Stroke Maternal Grandmother Lipids Maternal Grandmother Lipids Maternal Grandfather COPD Paternal Grandmother Lung Cancer Paternal Grandmother Kidney Disease Paternal Grandfather Dementia Paternal Grandfather other (Aortic Aneurysm) Paternal Grandfather No Known Problems Daughter No Known Problems Son SOCIAL HISTORY Social History Tobacco Use Smoking status: Never Smokeless tobacco: Never Vaping Use Vaping status: Never Used Substance Use Topics Alcohol use: No Drug use: Never REVIEW OF SYSTEMS Abdomen: No abdominal pain, nausea, vomiting, diarrhea, or constipation. No bloating, early satiety, indigestion, or increased flatulence. Bladder: No dysuria, gross hematuria, urinary frequency, urinary urgency, or incontinence. Breast: No breast lumps, nipple d/c, overlying skin changes, redness or skin retraction. Allergies and current medication updated:Yes SENSITIVE EXAM: The sensitive examination was discussed with the Patient or Patient's Authorized Supervisor Fleshing. As applicable, any other physician, advance practice provider, medical student, or other health professional student that will be observing or involved in the sensitive examination for educational or training purposes was discussed with the Patient or Authorized Supervisor Fleshing. The Patient or Authorized Supervisor Fleshing has agreed to proceed with the sensitive examination. (Sensitive examination includes inspection and/or palpation of the breasts, pelvis, prostate and anorectal regions). EXAM: BP 114/60 Ht 5' 2.008 (1.58m) Wt 156 lb (70.8kg) LMP 12/08/2022 BMI 28.53 kg/(m2). 14 lb weight gain GENERAL: pleasant, female in no apparent distress HEENT: Normocephalic, atraumatic, mucus membranes moist, and no lesions NECK: Supple, full range of motion, no adenopathy, and thyroid normal DERMATOLOGY: Normal, without lesions, non-icteric, and non-hirsute BREAST: soft, non-tender, symmetric, no dominant mass, normal nipple-areolar complex, no lymphadenopathy, and no nipple discharge CHEST: Normal inspiratory effort ABDOMEN: soft no masses. Mild generalized tenderness PELVIC: external genitalia normal, normal Bartholin's glands, urethra, [place]'s glands, no vulvar lesions, no cervical lesions,blood tinged physiologic discharge present, normal appearing perineal body and perianal region, IUD strings visible BIMANUAL: uterus normal size, shape and consistency, no adnexal masses, and non-tender RECTOVAGINAL: deferred. NEURO: alert and oriented x3,exam grossly non-focal EXTREMITIES: normal ASSESSMENT/PLAN: 1) Health maintenance: Pap done with HPV. Mammogram starting age 40. Nutrition, exercise and routine health maintenance exams reviewed. Calcium/Vitamin D supplementation information provided. 2. Unintended weight gain - ICD9: 783.1, ICD10: R63.5 - discussed that escitalopram can be a cause of weight gain. Can discuss trial of bupropion with PCP. - Eat primarily whole foods. Limit carbs, (more content not included)... Normal [facility] HIGH RISK HUMAN PAPILLOMA HEAVEN (HPV), PCR FOR DETECTION AND GENOTYPINGon 03-04-2024 HPV 16 Ag Ql (Unsp spec) Not detected Normal Not detected [facility] Comment on above: Order Comment: Speci men Type: FLUID SPECIMEN Ordering Facility: [facility] Address: [address] [place] [address] Performed By: #### H PVHRT, [id number] #### [facility] CLIA [id number] [address] [place] [address] [place] HPV 18 Ag Ql (Unsp spec) Not detected Normal Not detected [facility] Comment on above: Order Comment: Speci men Type: FLUID SPECIMEN Ordering Facility: [facility] Address: [address] [place] [address] Performed By: #### H PVHRT, [id number] #### [facility] CLIA [id number] [address] [place] [address] [place] HPV 31+33+35+39+45+51+ 52+56+58+59+66+68 DNA MACHO+probe Ql (Cvx) Not detected Normal Not detected [facility] Comment on above: Order Comment: Speci men Type: FLUID SPECIMEN Ordering Facility: [facility] Address: [address] [place] [address] Result Comment: High Risk HPV Other Type includes HPV types 31, 33, 35, 39, 45, 51, 52, 56, 58, 59, 66 and 68. Performed By: #### H MARK [id number] #### [facility] CLIA [id number] [address] [place] [address] [place] PAP TESTon 03-04-2024 ADEQUACY Satisfactory for interpretation. Normal [facility] Comment on above: Order Comment: Speci men Type: FLUID SPECIMEN Ordering Facility: [facility] Address: [address] [place] [address] Performed By: #### H MARK [id number] #### [facility] CLIA [id number] [address] [place] [address] [place] CASE REPORT Normal [facility] Comment on above: Order Comment: Speci men Type: FLUID SPECIMEN Ordering Facility: [facility] Address: [address] [place] [address] Result Comment: Gyne cologic Cytology Report Case: [id number] Authorizing Provider: Courtney Yost APRN.STAFFING CONSULTANT Collected: 03/04/2024 12:17 PM Ordering Location: OB/Gynecology Received: 03/04/2024 04:44 PM First Screen: Jorge, Courtney, CT, ASCP Specimen: Pap Test, ThinPrep, Cervix Performed By: #### H PVJOSEFA, [id number] #### [facility] CLIA [id number] [address] [place] [address] [place] CLINICAL HISTORY, CYTOLOGY, CLINICAL SCIENCES PROFESSOR Intra Uterine Device, No Menses Normal [facility] Comment on above: Order Comment: Speci men Type: FLUID SPECIMEN Ordering Facility: [facility] Address: [address] [place] [address] Performed By: #### H PVJOSEFA, [id number] #### [facility] CLIA [id number] [address] [place] [address] [place] FINAL PERFORMING LAB Normal [facility] Comment on above: Order Comment: Speci men Type: FLUID SPECIMEN Ordering Facility: [facility] Address: [address] [place] [address] Result Comment: Tech nical component, government sales manager screening performed at [facility], [address] [place] [address] CLIA# [id number] Diagnostic interpretation performed at [facility], [address] [place], [place] [id number] CLIA# [id number] Orthodontist: Rodney Levin M.D. Performed By: #### H PVHRT, [id number] #### [facility] CLIA [id number] [address] [place] [address] [place] HPV REFLEX Yes HPV Normal [facility] Comment on above: Order Comment: Speci men Type: FLUID SPECIMEN Ordering Facility: [facility] Address: [address] [place] [address] Performed By: #### H PVHRT, [id number] #### [facility] CLIA [id number] [address] [place] [address] [place] INTERPRETATION, CYTOLOGY, CLINICAL SCIENCES PROFESSOR Normal [facility] Comment on above: Order Comment: Speci men Type: FLUID SPECIMEN Ordering Facility: [facility] Address: [address] [place] [address] Result Comment: Nega tive for intraepithelial lesion or malignancy. Performed By: #### H PVHRT, [id number] #### [facility] CLIA [id number] [address] [place] [address] [place] PAP DISCLAIMER COMMENT The Pap Smear is a screening test for cervical cancer. False negative results occur with all screening tests, emphasizing the need for rescreening at recommended intervals, and clinical correlation. Normal [facility] Comment on above: Order Comment: Speci men Type: FLUID SPECIMEN Ordering Facility: [facility] Address: [address] [place] [address] Performed By: #### H PVHRT, [id number] #### [facility] CLIA [id number] [address] [place] [address] [place] PAP EVP CHIEF EXPLORATION OFFICER COMMENT This specimen has be en analyzed by the ThinPrep Imaging System, an automated imaging and review system, which assists the laboratory in evaluating cells on ThinPrep Pap tests. Following automated imaging, selected [place] from every slide are reviewed by a government sales manager. Normal [facility] Comment on above: Order Comment: Speci men Type: FLUID SPECIMEN Ordering Facility: [facility] Address: [address] [place] [address] Performed By: #### H PVHRT, [id number] #### [facility] CLIA [id number] [address] [place] [address] [place] Serum Varicella zoster virus IgG antibody assay by immunoassay (units/volume)Ordered By: Courtney Yost on 01-09-2023 VZV IgG IA Qn (S) > 4000 index Immune >165 [facility] Comment on above: Negative <135 Equivo luann 135 - 165 Positive >165A positive result generally indicates exposure to thepathogen or administration of specific immunoglobulins,but it is not indication of active infection or stageof disease.Performed at: - [facility] [id number] Director: Adria Meadows PhD, Phone: [phone] Culture, urineOrdered By: Gautam Bocanegra on 01-03-2023 Bacteria identified Cx Nom (U) Mixed Gram Pos & Gram Neg Org [facility] - Chemistry and C hemistry - challengeon 01-03-2023 Bilirubin Ql (U) Negative [facility] Glucose Ql (U) Negative [facility] Ketones Ql (U) Negative [facility] pH (U) 8.0 [pH] [facility] Specific gravity (U) [Rel density] 1.005 [facility] Urobilinogen (U) [Mass/Vol] 0.0401973 mg/dL [facility] - Specimen inform ationon 01-03-2023 Clarity (U) Hazy [facility] Color (U) YELLOW [facility] - Urinalysison Nitrite Ql (U) Negative [facility] Protein Ql (U) 3+ [facility] No Panel Informationon 01-03 Urine Leukocytes Positive [facility] Urine Non-Hemolyzed Blood Large [facility] HCG QUAL UR B/Oon 12-13-2022 status Negative neg - pos [facility] Quality Check Yes [facility] PELVIC US WHIon 11-22-2022 [facility] THINPREP PAP REFLEX HPV mRNA E6/E7on 02-16-2020 CLINICAL INFORMATION: Normal [facility] Comment on above: Result Comment: None given Performed By: #### 9 0932 #### [facility]-[address], [address] [place] [address] Mixer Diamond Powder: Bryant Miller MD COMMENT Normal [facility] Comment on above: Result Comment: EXPL ANATORY NOTE: The Pap is a screening test for cervical cancer. It is not a diagnostic test and is subject to false negative and false positive results. It is most reliable when a satisfactory sample, regularly obtained, is submitted with relevant clinical findings and history, and when the Pap result is evaluated along with historic and current clinical information. Performed By: #### 9 0932 #### [facility]-[place] [address] Mix[employer] Diamond Powder: Bryant Miller MD POLLS OR SURVEYS INTERVIEWER: Normal [facility] Comment on above: Result Comment: LLT, CT(ASCP) CT screening location: [place] [address]. Performed By: #### 9 0932 #### [facility] [address] Mix[employer] Diamond Powder: Bryant Miller MD INTERPRETATION/RES ULT: Normal [facility] Comment on above: Result Comment: Nega tive for intraepithelial lesion or malignancy. Performed By: #### 9 0932 #### [facility]-[address], [address] [place] [address] Mixer Diamond Powder: Bryant Miller MD LMP: Normal [facility] Comment on above: Result Comment: None given Performed By: #### 9 0932 #### [facility] [address] Mixer Diamond Powder: Bryant Miller MD PREV. BX: None given Normal [facility] Comment on above: Performed By: #### 9 0932 #### [facility]-[address], [address] [place] [address] Mixer Diamond Powder: Bryant Miller MD PREV. PAP: Normal [facility] Comment on above: Result Comment: NEGA TIVE Performed By: #### 9 0932 #### [facility] [address] Mixer Diamond Powder: Bryant Miller MD SOURCE: Normal [facility] Comment on above: Result Comment: Cerv ix Performed By: #### 9 0932 #### [facility] [address] Mix[employer] Diamond Powder: Bryant Miller MD STATEMENT OF ADEQUACY: Normal [facility] Comment on above: Result Comment: Sati sfactory for evaluation. Endocervical/transformation zone component present. Performed By: #### 9 0932 #### [facility] [address] Mix[employer] Diamond Powder: Bryant Miller MD THIN PREP (QU) PAP WITH HPV REFLEXon 04-09-2017 THIN PREP (QU) PAP WITH HPV REFLEX Normal [facility] Comment on above: Result Comment: _THI N PREP PAP W/RFX HPVTHINPREP(R) PAP WITH REFLEX HPV MRNA E6/J3Qvzmrmok: 04/09/2017 10:58 Status=F TEST RESULT FLAG RANGE UNITS THINPREP(R) PAP WITH see below 04/09/17.1110.rfl.COMPLETE.AMRRREFLEX HPV MRNA E6/W5YOHBA: ThinPrep(R) Pap w/Reflex to HPV RNA (1)CLINICAL HISTORY/INFORMATION:LMP DATE: 03/02/2017SOURCE: CervixCLINICAL INFO: Not ProvidedHORMONES: NOT PROVIDED 1. SP ECIMEN ADEQUACY:Satisfactory for EvaluationEndocervical/Transformation Zone component present FINAL INTERPRETATION NEGATIVE FOR INTRAEPITHELIAL LESION OR MALIGNANCYCOMMENTS:Fungal organisms present morphologically consistent with CandidaspeciesScreener ELECTRONIC SIGNATURE ON FILEVRW CT(ASCP) VRW CT(ASCP) Reflexive HPV Not Indicated The Pap is a screening test for cervical cancer. It is not adiagnostic test and is subject to false negative and false positiveresults. It is most reliable when a satisfactory sample, regularlyobtained, is submitted with relevant clinical findings and history,and when the Pap result is evaluated along with historic and currentclinical information.Test [facility],[address] [place] [id number] Perez M.D., Ph.D., Director of [phone], DANNIE [id number] Performed By: #### 2 [id number] ####[facility],[address] [facility] [address] Vital Signs Date Time Vital Sign Value Performing Clinician Olivia sanchez 01-01-2025 17:49-0400 Body height 157.[address] Tonny Watson MD Work Phone: [facility] 01-01-2025 17:49-0400 Body mass index (BMI) [Ratio] 26.9 kg/m2 Dr. Tonny Watson MD Work Phone: [facility] 01-01-2025 17:49-0400 Body temperature 97 [degF] Dr. Tonny Watson MD Work Phone: [facility] 01-01-2025 17:49-0400 Body weight 66.[address] Tonny Watson MD Work Phone: [facility] 01-01-2025 17:49-0400 Diastolic blood pressure 60 mm[Hg] Dr. Tonny Watson MD Work Phone: [facility] 01-01-2025 17:49-0400 Heart rate 78 /min Dr. Tonny Watson MD Work Phone: [facility] 01-01-2025 17:49-0400 Respiratory rate 16 /min Dr. Tonny Watson MD Work Phone: [facility] 01-01-2025 17:49-0400 SaO2% (BldA) [Mass fraction] 99 % Dr. Tonny Watson MD Work Phone: [facility] 01-01-2025 17:49-0400 Systolic blood pressure 98 mm[Hg] Dr. Tonny Watson MD Work Phone: [facility] 12-08-2024 13:52-0400 Body mass index (BMI) [Ratio] 26.51 kg/m2 Michelle Jones APRN.CNM Work Phone: [facility] 12-08-2024 13:52-0400 Body weight 65.77 kg Michelle Jones APRN.CNM Work Phone: [facility] 12-08-2024 13:52-0400 Diastolic blood pressure 72 mm[Hg] Michelle Jones TEACHER HOME THERAPY.CNM Work Phone: [facility] 12-08-2024 13:52-0400 Systolic blood pressure 100 mm[Hg] Michelle Jones TEACHER HOME THERAPY.CNM Work Phone: [facility] 03-04-2024 11:37-0400 Body height 157.5 cm Courtney Yost APRN.STAFFING CONSULTANT Work Phone: [facility] 03-04-2024 11:37-0400 Body mass index (BMI) [Ratio] 28.53 kg/m2 Courtney Yost APRN.STAFFING CONSULTANT Work Phone: [facility] 03-04-2024 11:37-0400 Body weight 70.76 kg Courtney Yost APRN.STAFFING CONSULTANT Work Phone: [facility] 03-04-2024 11:37-0400 Diastolic blood pressure 60 mm[Hg] Courtney Yost TEACHER HOME THERAPY.STAFFING CONSULTANT Work Phone: [facility] 03-04-2024 11:37-0400 Systolic blood pressure 114 mm[Hg] Courtney Yost TEACHER HOME THERAPY.STAFFING CONSULTANT Work Phone: [facility] 02-28-2023 14:04-0400 Body height 157.5 cm Courtney Yost APRN.STAFFING CONSULTANT Work Phone: [facility] 02-28-2023 14:04-0400 Body weight 64.41 kg Courtney Yost APRN.STAFFING CONSULTANT Work Phone: [facility] 02-28-2023 14:04-0400 Diastolic blood pressure 70 mm[Hg] Courtney Larryhrie TEACHER HOME THERAPY.STAFFING CONSULTANT Work Phone: [facility] 02-28-2023 14:04-0400 Systolic blood pressure 112 mm[Hg] Courtney Yost APRN.STAFFING CONSULTANT Work Phone: [facility] 01-03-2023 09:36-0400 Body height 157.[address] Tonny Watson Work Phone: [facility] 01-03-2023 09:36-0400 Body mass index (BMI) [Ratio] 25 kg/m2 Dr. Tonny Watson Work Phone: [facility] 01-03-2023 09:36-0400 Body temperature 98.6 [degF] Dr. Tonny Watson Work Phone: [facility] 01-03-2023 09:36-0400 Body weight 62.[address] Tonny Watson Work Phone: [facility] 01-03-2023 09:36-0400 Heart rate 74 /min Dr. Tonny Watson Work Phone: [facility] 01-03-2023 09:36-0400 Respiratory rate 16 /min Dr. Tonny Watson Work Phone: [facility] 01-03-2023 09:36-0400 SaO2% (BldA) [Mass fraction] 99 % Dr. Tonny Watson Work Phone: [facility] 12-13-2022 14:11-0400 Diastolic blood pressure 62 mm[Hg] Courtney Yost APRN.STAFFING CONSULTANT Work Phone: [facility] 12-13-2022 14:11-0400 Heart rate 65 /min Courtney Yost APRN.STAFFING CONSULTANT Work Phone: [facility] 12-13-2022 14:11-0400 SaO2% (BldA) [Mass fraction] 97 % Courtney Yost APRN.STAFFING CONSULTANT Work Phone: [facility] 12-13-2022 14:11-0400 Systolic blood pressure 100 mm[Hg] Courtney Yost APRN.STAFFING CONSULTANT Work Phone: [facility] 12-13-2022 13:36-0400 Body weight 63.5 kg Courtney Larryjimmy CHILEL.STAFFING CONSULTANT Work Phone: [facility] 11-22-2022 10:41-0400 Body weight 63.69 kg Courtney Yost TEACHER HOME THERAPY.STAFFING CONSULTANT Work Phone: [facility] 11-22-2022 10:41-0400 Diastolic blood pressure 60 mm[Hg] Courtney Yost APRN.STAFFING CONSULTANT Work Phone: [facility] 11-22-2022 10:41-0400 Systolic blood pressure 100 mm[Hg] Courtney Yost APRN.STAFFING CONSULTANT Work Phone: [facility] 11-22-2022 09:03-0400 Body mass index (BMI) [Ratio] 25 kg/m2 Dr. Tonny Watson Work Phone: [facility] 11-22-2022 09:03-0400 Body temperature 98.3 [degF] Dr. Tonny Watson Work Phone: [facility] 11-22-2022 09:03-0400 Body weight 63.[address] Tonny Watson Work Phone: [facility] 11-22-2022 09:03-0400 Diastolic blood pressure 76 mm[Hg] Dr. Tonny Watson Work Phone: [facility] 11-22-2022 09:03-0400 Heart rate 59 /min Dr. Tonny Watson Work Phone: [facility] 11-22-2022 09:03-0400 Respiratory rate 16 /min Dr. Tonny Watson Work Phone: [facility] 11-22-2022 09:03-0400 SaO2% (BldA) [Mass fraction] 96 % Dr. Tonny Watson Work Phone: [facility] 11-22-2022 09:03-0400 Systolic blood pressure 100 mm[Hg] Dr. Tonny Watson Work Phone: [facility] 09-29-2022 09:29-0400 Body mass index (BMI) [Ratio] 25.1 kg/m2 Dr. Tonny Watson Work Phone: [facility] 09-29-2022 09:29-0400 Body temperature 98 [degF] Dr. Tonny Watson Work Phone: [facility] 09-29-2022 09:29-0400 Body weight 64.[address] Tonny Watson Work Phone: [facility] 09-29-2022 09:29-0400 Diastolic blood pressure 70 mm[Hg] Dr. Tonny Watson Work Phone: [facility] 09-29-2022 09:29-0400 Heart rate 75 /min Dr. Tonny Watson Work Phone: [facility] 09-29-2022 09:29-0400 Respiratory rate 16 /min Dr. Tonny Watson Work Phone: [facility] 09-29-2022 09:29-0400 SaO2% (BldA) [Mass fraction] 99 % Dr. Tonny Watson Work Phone: [facility] 09-29-2022 09:29-0400 Systolic blood pressure 102 mm[Hg] Dr. Tonny Watson Work Phone: [facility] 05-16-2022 08:17-0500 Body weight 63.32 kg Michelle Jones APRN.CNM Work Phone: [facility] 05-16-2022 08:17-0500 Diastolic blood pressure 68 mm[Hg] Michelle Jones APRN.CNJose Work Phone: [facility] 05-16-2022 08:17-0500 Systolic blood pressure 108 mm[Hg] Michelle Jones APRN.CNM Work Phone: [facility] 04-04-2022 09:04-0400 Diastolic blood pressure 64 mm[Hg] Michelle Jones TEACHER HOME THERAPY.CNM Work Phone: [facility] 04-04-2022 09:04-0400 Systolic blood pressure 90 mm[Hg] Michelle Jones TEACHER HOME THERAPY.CNM Work Phone: [facility] 04-04-2022 08:32-0400 Body weight 63.05 kg Michelle Jones TEACHER HOME THERAPY.CNM Work Phone: [facility] 01-16-2022 11:02-0400 Body weight 61.69 kg Michelle Jones TEACHER HOME THERAPY.CNM Work Phone: [facility] 01-16-2022 11:02-0400 Diastolic blood pressure 66 mm[Hg] Michelle Jones TEACHER HOME THERAPY.CNM Work Phone: [facility] 01-16-2022 11:02-0400 Systolic blood pressure 106 mm[Hg] Michelle Jones TEACHER HOME THERAPY.CNM Work Phone: [facility] 10-11-2021 11:00-0400 Body temperature 97.2 [degF] Dr. Tonny Watson Work Phone: [facility] Work Phone: 10-11-2021 11:00-0400 Body weight 61.[address] Tonny Watson Work Phone: [facility] Work Phone: 10-11-2021 11:00-0400 Diastolic blood pressure 80 mm[Hg] Dr. Tonny Watson Work Phone: [facility] Work Phone: 10-11-2021 11:00-0400 Heart rate 63 /min Dr. Tonny Watson Work Phone: [facility] Work Phone: 10-11-2021 11:00-0400 Respiratory rate 16 /min Dr. Tonny Watson Work Phone: [facility] Work Phone: 10-11-2021 11:00-0400 SaO2% (BldA) [Mass fraction] 99 % Dr. Tonny Watson Work Phone: [facility] Work Phone: 10-11-2021 11:00-0400 Systolic blood pressure 112 mm[Hg] Dr. Tonny Watson Work Phone: [facility] Work Phone: Encounters Encounter Date Encounter Type Care Provider Facility Start: 01-01-2025 Encounter for genera l adult medical examination without abnormal findings Tonny Watson [facility] Start: 01-01-2025 End: 01-01-[address] Tonny Watson MD -[facility] Work Phone: Start: 01-01-2025 End: 01-01-[address] Tonny Watson MD Work Phone: -[facility] Start: 12-08-2024 End: 12-08-2024 Patient encounter procedure Michelle Jones APRN.CNM Work Phone: OB/Gynecology Comment on above: Abnormal vaginal ble eding (Primary Dx); Family history of thyroid disease; Postcoital and contact bleeding; IUD (intrauterine device) in place Start: 12-08-2024 End: 12-08-2024 ambulatory MICHELLE JONES Facility:[facility] Start: 06-06-2024 End: 06-06-2024 ambulatory [facility] [place] [place]: 03-31-2024 End: 03-31-2024 ambulatory [facility] [place] Start: 03-31-2024 End: 03-31-2024 ambulatory [facility] Facility:[facility] Start: 03-18-2024 End: 03-18-2024 ambulatory [facility] [place] Start: 03-18-2024 End: 03-18-2024 ambulatory [facility] Facility:[facility] Start: 03-04-2024 End: 03-04-2024 ambulatory COURTNEY YOST Facility:[facility] Start: 03-04-2024 End: 03-04-2024 Patient encounter procedure Courtney Yost APRN.STAFFING CONSULTANT Work Phone: OB/Gynecology Comment on above: Encounter for gyneco logical examination (general) (routine) without abnormal findings (Primary Dx); Unintended weight gain; Screening for cervical cancer; Encounter for screening for human papillomavirus (HPV) Start: 03-04-2024 End: 03-04-2024 Patient encounter status Courtney Yost APRN.STAFFING CONSULTANT Work Phone: [facility] Start: 02-28-2023 End: 02-28-2023 Patient encounter procedure Courtney Yost APRN.STAFFING CONSULTANT Work Phone: OB/Gynecology Comment on above: Encounter for gyneco logical examination (general) (routine) without abnormal findings (Primary Dx); Encounter for routine checking of intrauterine contraceptive device (IUD) Start: 02-28-2023 End: 02-28-2023 Patient encounter status Courtney Yost APRN.STAFFING CONSULTANT Work Phone: [facility] Work Phone: Start: 01-09-2023 End: 01-09-[address] Tonny Watson Work Phone: [facility] Work Phone: Start: 01-09-2023 End: 01-09-[address] Tonny Watson Work Phone: [facility] Work Phone: Start: 01-03-2023 End: 01-03-[address] Tonny Watson Work Phone: [facility] Work Phone: Start: 01-03-2023 End: 01-03-[address] Tonny Watson Work Phone: [facility], Specimen Work Phone: Start: 01-03-2023 End: 01-03-[address] Tonny Watson Work Phone: [facility] Work Phone: Start: 12-13-2022 End: 12-13-2022 Patient encounter procedure Courtney Yost APRN.STAFFING CONSULTANT Work Phone: OB/Gynecology Comment on above: Encounter for IUD in sertion (Primary Dx) Start: 11-22-2022 End: 11-22-2022 ambulatory Ob Ultrasound Work Phone: OB/Gynecology Comment on above: IUD Start: 11-22-2022 End: 11-22-2022 Patient encounter procedure Courtney Yost APRN.STAFFING CONSULTANT Work Phone: OB/Gynecology Comment on above: Intrauterine contrac eptive device threads lost, initial encounter (Primary Dx); Abnormal uterine bleeding (AUB) Start: 11-22-2022 End: 11-22-[address] Tonny Watson Work Phone: [facility] Work Phone: Start: 11-17-2022 ambulatory Michelle Jones APRN.CNM Work Phone: OB/Gynecology Comment on above: IUD strings missing Start: 09-29-2022 End: 09-29-[address] Tonny Watson Work Phone: [facility] Work Phone: Start: 05-16-2022 End: 05-16-2022 Patient encounter procedure Michelle Jones APRN.CNM Work Phone: OB/Gynecology Comment on above: Surveillance of prev iously prescribed intrauterine contraceptive device (Primary Dx); Urinary frequency Start: 04-04-2022 End: 04-04-2022 Patient encounter procedure Michelle Jones APRN.CNM Work Phone: OB/Gynecology Comment on above: Encounter for IUD in sertion (Primary Dx) Start: 01-16-2022 End: 01-16-2022 Patient encounter procedure Michelle Jones APRN.CNJose Work Phone: OB/Gynecology Comment on above: Encounter for gyneco logical examination with abnormal finding (Primary Dx); Abnormal uterine bleeding (AUB); Malaise and fatigue; Acne vulgaris; Hirsutism Start: 01-16-2022 End: 01-16-2022 Patient encounter status Michelle Jones APRN.CNM Work Phone: OB/Gynecology Start: 01-11-2022 End: 01-11-[address] Tonny Watson Work Phone: [facility] Start: 01-03-2022 ambulatory Michelle Jones APRN.CNM Work Phone: OB/Gynecology Comment on above: Irregular bleeding Start: 10-11-2021 End: 10-11-[address] Tonny Watson Work Phone: [facility] Start: 02-01-[address] Milena Watson Work Phone: [facility] Start: 03-30-2017 End: 03-30-2017 Ambulatory [facility] Procedures Date Procedure Procedure Detail Performing Clinician Start: 12-08-2024 BACTERIAL VAGINOSIS NAAT Michelle Jones APRN.CNM Work Phone: Start: 12-08-2024 Iadna trichomonas vaginalis amplified probe tech Michelle Jones APRN.CNM Work Phone: Start: 01-03-[address] Osmar Watson Work Phone: Start: 12-13-2022 Urine test visual color cmprsn meths Courtney Yost APRN.CNP Work Phone: Start: 11-22-2022 Us pelvic nonobstetr ic real-time image complete Courtney Yost APRN.CNP Work Phone: Plan of Treatment Date Care Activity Detail Author Start: 03-04-2029 Screening for malign ant neoplasm of cervix Cervical Cancer Screening [facility] Start: 03-26-2027 Urine microalbumin profile DTa P,Tdap,Td Vaccine (9 - Td or Tdap) [facility] Start: 03-10-2025 End: 03-10-2025 Patient encounter procedure 03/10/2025 9:30 AM EDT Office Visit OB/Gynecology [address] [place], [place] [id number] Courtney Yost, GETACHEW.STAFFING CONSULTANT [address] [place] [address] Annual OB/Gynecology Comment on above: Annual Start: 12-08-2024 End: 03-09-2025 Thyrotropin [Units/volume] in Serum or Plasma THYROID STIMULATING HORMONE Lab Routine Family history of thyroid disease Postcoital and contact bleeding Expected: 12/08/2024, Expires: 03/09/2025 [facility] Work Phone: Comment on above: Expected: 12/08/2024 , Expires: 03/09/2025 Start: 12-08-2024 End: 03-09-2025 Thyroxine (T4) free [Mass/volume] in Serum or Plasma T4 FREE/FREE THYROXINE Lab Routine Family history of thyroid disease Postcoital and contact bleeding Expected: 12/08/2024, Expires: 03/09/2025 [facility] Comment on above: Expected: 12/08/2024 , Expires: 03/09/2025 Start: 07-09-2024 HPV TESTING HPV TESTING [facility] Start: 07-09-2024 PAP TESTING PAP TESTING [facility] Start: 07-09-2024 Screening for malign ant neoplasm of cervix Cervical Cancer Screening [facility] Start: 02-17-2024 Covid-19 Vaccine ( season) Covid-19 Vaccine () [facility] Start: 02-17-2024 Covid-19 Vaccine () Covid-19 Vaccine () [facility] Start: 02-17-2024 Influenza vaccination Influenza Vacc ine (#1) [facility] Start: 02-16-2023 Influenza vaccination Influenza Vacc ine (#1) [facility] Start: 11-22-2022 End: 11-23-2023 PELVIC US WHI PELVIC US WHI Anc Imaging Routine Intrauterine contraceptive device threads lost, initial encounter Expected: 11/22/2022, Expires: 11/23/2023 [facility] Work Phone: Comment on above: Expected: 11/22/2022 , Expires: 11/23/2023 Start: 06-18-2022 DEPRESSION ASSESSMENT DEPRESSION ASS ESSMENT [facility] Start: 02-16-2022 Influenza vaccination INFLUENZA (#1) [facility] Start: 01-16-2022 End: 03-18-2022 17-Hydroxyprogesterone [Mass/volume] in Serum or Plasma HYDROXYPROGESTERO-17 Lab Routine Abnormal uterine bleeding (AUB) Acne vulgaris Hirsutism Expected: 01/16/2022, Expires: 03/18/2022 [facility] Work Phone: Comment on above: Expected: 01/16/2022 , Expires: 03/18/2022 Start: 01-16-2022 End: 03-18-2022 25-hydroxyvitamin D3 [Mass/volume] in Serum or Plasma VITAMIN D 25 HYDROXY Lab Routine Abnormal uterine bleeding (AUB) Malaise and fatigue Expected: 01/16/2022, Expires: 03/18/2022 [facility] Work Phone: Comment on above: Expected: 01/16/2022 , Expires: 03/18/2022 Start: 01-16-2022 End: 03-18-2022 CBC W Auto Differential panel - Blood CBC + DIFF Lab Routine Abnormal uterine bleeding (AUB) Expected: 01/16/2022, Expires: 03/18/2022 [facility] Work Phone: Comment on above: Expected: 01/16/2022 , Expires: 03/18/2022 Start: 01-16-2022 End: 03-18-2022 DHEA-S BLD DHEA-S BLD Lab Routine Abnormal uterine bleeding (AUB) Acne vulgaris Hirsutism Expected: 01/16/2022, Expires: 03/18/2022 [facility] Work Phone: Comment on above: Expected: 01/16/2022 , Expires: 03/18/2022 Start: 01-16-2022 End: 03-18-2022 Prolactin [Mass/volume] in Serum or Plasma PROLACTIN BLD Lab Routine Abnormal uterine bleeding (AUB) Malaise and fatigue Expected: 01/16/2022, Expires: 03/18/2022 [facility] Work Phone: Comment on above: Expected: 01/16/2022 , Expires: 03/18/2022 Start: 01-16-2022 End: 03-18-2022 TESTOSTERONE, FREE AND TOTAL TESTOSTERONE, FREE AND TOTAL Lab Routine Abnormal uterine bleeding (AUB) Malaise and fatigue Expected: 01/16/2022, Expires: 03/18/2022 [facility] Work Phone: Comment on above: Expected: 01/16/2022 , Expires: 03/18/2022 Start: 01-16-2022 End: 01-16-2023 THYROID PEROXIDASE ANTIBODY BLOOD THYROID PEROXIDASE ANTIBODY BLOOD Lab Routine Abnormal uterine bleeding (AUB) Malaise and fatigue Expected: 01/16/2022, Expires: 01/16/2023 [facility] Work Phone: Comment on above: Expected: 01/16/2022 , Expires: 01/16/2023 Start: 01-16-2022 End: 03-18-2022 Thyrotropin [Units/volume] in Serum or Plasma TSH BLD Lab Routine Abnormal uterine bleeding (AUB) Malaise and fatigue Expected: 01/16/2022, Expires: 03/18/2022 [facility] Work Phone: Comment on above: Expected: 01/16/2022 , Expires: 03/18/2022 Start: 01-16-2022 End: 03-18-2022 Thyroxine (T4) free [Mass/volume] in Serum or Plasma T4 FREE/FREE THYROX Lab Routine Abnormal uterine bleeding (AUB) Malaise and fatigue Expected: 01/16/2022, Expires: 03/18/2022 [facility] Work Phone: Comment on above: Expected: 01/16/2022 , Expires: 03/18/2022 Start: 01-16-2022 End: 03-18-2022 Triiodothyronine (T3) Free [Mass/volume] in Serum or Plasma T3 FREE BLD Lab Routine Abnormal uterine bleeding (AUB) Malaise and fatigue Expected: 01/16/2022, Expires: 03/18/2022 [facility] Work Phone: Comment on above: Expected: 01/16/2022 , Expires: 03/18/2022 Start: 01-11-2022 Pelvic echography Pelvic (Non Pregna nt) [facility] Work Phone: Start: 01-11-2022 Transvaginal echography Transv aginal Non- [facility] Work Phone: Start: 01-11-2022 US Pelvis [facility] Work Phone: Start: 01-11-2022 US Pelvis transvaginal [facility] Work Phone: Start: 11-26-2021 COVID-19 VACCINE (3 - Booster for Moderna series) COVID-19 VACCINE (3 - Booster for Moderna series) [facility] Start: 08-23-2021 COVID-19 VACCINE (3 - Booster for Moderna series) COVID-19 VACCINE (3 - Booster for Moderna series) [facility] Start: 08-23-2021 Covid-19 Vaccine (3 - Moderna series) Covid-19 Vaccine (3 - Moderna series) [facility] Start: 06-18-2021 DEPRESSION ASSESSMENT DEPRESSION ASS ESSMENT [facility] Start: 07-17-2016 Urine microalbumin profile DTA P,TDAP,TD (7 - Td or Tdap) [facility] Start: 08-14-2006 HEPATITIS B (2 of 3 - Hep B Twinrix 3-dose series) HEPATITIS B (2 of 3 - Hep B Twinrix 3-dose series) [facility] Start: 08-14-2006 Hepatitis B Vaccine (2 of 3 - Hep B Twinrix 3-dose series) Hepatitis B Vaccine (2 of 3 - Hep B Twinrix 3-dose series) [facility] Start: 2006 Anxiety Screening Anxiety Screening [facility] Start: 2006 Depression Screening Depression Scre ening [facility] Start: 2006 HEPATITIS C SCREENING HEPATITIS C [facility] Start: 2006 Hepatitis C screening Hepatitis C [facility] Start: 2000 Adult depression scr eening assessment DEPRESSION SCREENING [facility] Start: 1988 COVID-19 VACCINE (#1) COVID-19 VACCI NE (#1) [facility] Bacteria identified in Urine by Culture URINE CULTURE Microbiology Routine Urinary frequency 05/16/2022 1:18 PM EST [facility] Work Phone: CBC W Auto Different ial panel - Blood [facility] Comprehensive metabo lic 1999 panel - Serum or Plasma [facility] Insertion intrauteri ne device iud INSERT INTRAUTERINE DEVICE Procedures Routine Abnormal uterine bleeding (AUB) Ordered: 01/16/2022 [facility] Work Phone: Comment on above: Ordered: 01/16/2022 Insertion intrauteri ne device iud INSERT INTRAUTERINE DEVICE Procedures Routine Encounter for IUD insertion Ordered: 04/04/2022 [facility] Work Phone: Comment on above: Ordered: 04/04/2022 Insertion intrauteri ne device iud INSERT INTRAUTERINE DEVICE Procedures Routine Intrauterine contraceptive device threads lost, initial encounter Abnormal uterine bleeding (AUB) Ordered: 11/22/2022 [facility] Work Phone: Comment on above: Ordered: 11/22/2022 Insertion intrauteri ne device iud INSERT INTRAUTERINE DEVICE Procedures Routine Encounter for IUD insertion Ordered: 12/13/2022 [facility] Work Phone: Comment on above: Ordered: 12/13/2022 Lipid 1996 panel - S neil or Plasma [facility] PAP TEST PAP TEST Lab [place] Encounter for gynecological examination (general) (routine) without abnormal findings Screening for cervical cancer Encounter for screening for human papillomavirus (HPV) 03/04/2024 12:17 PM EDT [facility] Work Phone: [facility] Immunizations Immunization Date Immunization Notes Care Provider Analisa cruzcaitlin 03-19-2024 influenza, seasonal, injectable, preservative free Dr. Tonny Watson MD Work Phone: [facility] 05-03-2023 influenza, injectabl e, quadrivalent, preservative free Dr. Tonny Watson MD Work Phone: [facility] 05-03-2023 influenza virus vaccine, unspecified formulation Courtney Yost APRN.STAFFING CONSULTANT Work Phone: [facility] 05-08-2022 influenza, injectabl e, quadrivalent, preservative free Dr. Tonny Watson MD Work Phone: [facility] 05-08-2022 influenza, seasonal, injectable Dr. Tonny Watson Work Phone: [facility] 05-08-2022 influenza virus vaccine, unspecified formulation Courtney Yost TEACHER HOME THER[employer]Y.STAFFING CONSULTANT Work Phone: [facility] 04-12-2021 influenza, injectabl e, quadrivalent, preservative free Dr. Tonny Watson MD Work Phone: [facility] 04-12-2021 influenza, seasonal, injectable Dr. Tonny Watson Work Phone: [facility] 04-22-2020 influenza, injectabl e, quadrivalent, preservative free Dr. Tonny Watson MD Work Phone: [facility] 04-22-2020 influenza, seasonal, injectable Dr. Tonny Watson Work Phone: [facility] 04-08-2019 influenza, injectabl e, quadrivalent, preservative free Dr. Tonny Watson MD Work Phone: [facility] 04-08-2019 influenza, seasonal, injectable Dr. Tonny Watson Work Phone: [facility] 05-16-2018 influenza, injectabl e, quadrivalent, preservative free Dr. Tonny Watson MD Work Phone: [facility] 05-16-2018 influenza, seasonal, injectable Dr. Tonny Watson Work Phone: [facility] 04-23-2017 influenza, injectabl e, quadrivalent, preservative free Dr. Tonny Watson MD Work Phone: [facility] 04-23-2017 influenza, seasonal, injectable Dr. Tonny Watson Work Phone: [facility] 03-26-2017 tetanus toxoid, redu fer diphtheria toxoid, and acellular pertussis vaccine, adsorbed Dr. Tonny Watson Work Phone: [facility] 07-17-2006 hepatitis A and hepatitis B vaccine Michelle Jones APRN.CNM Work Phone: [facility] Work Phone: 07-17-2006 tetanus toxoid, redu fer diphtheria toxoid, and acellular pertussis vaccine, adsorbed Michelle Jones APRN.CNM Work Phone: [facility] Work Phone: 07-17-2006 hepatitis B vaccine, unspecified formulation Michelle Jones APRN.CNM Work Phone: [facility] 06-18-2006 tetanus toxoid, redu fer diphtheria toxoid, and acellular pertussis vaccine, adsorbed Courtney Yost APRN.STAFFING CONSULTANT Work Phone: [facility] Work Phone: 12-27-1993 diphtheria, tetanus toxoids and acellular pertussis vaccine Michelle Jones APRN.CNM Work Phone: [facility] Work Phone: 12-27-1993 poliovirus vaccine, inactivated Michelle Jones APRN.CNM Work Phone: [facility] Work Phone: 03-29-1990 haemophilus influenz ae type b vaccine, HbOC conjugate Michelle Jones TEACHER HOME THER[employer].CNM Work Phone: [facility] Work Phone: 11-02-1989 diphtheria, tetanus toxoids and acellular pertussis vaccine Michelle Jones TEACHER HOME THER[employer].CNM Work Phone: [facility] Work Phone: 11-02-1989 poliovirus vaccine, inactivated Michelle Jones TEACHER HOME THER[employer].CNM Work Phone: [facility] Work Phone: 07-21-1989 measles, mumps and rubella virus vaccine Michelle Jones TEACHER HOME THERAPY.CNM Work Phone: [facility] Work Phone: 1988 diphtheria, tetanus toxoids and acellular pertussis vaccine Michelle Jones TEACHER HOME THERAPY.CNM Work Phone: [facility] Work Phone: 1988 diphtheria, tetanus toxoids and acellular pertussis vaccine Michelle Jones TEACHER HOME THERAPY.CNM Work Phone: [facility] Work Phone: 1988 poliovirus vaccine, inactivated Michelle Jones TEACHER HOME THERAPY.CNM Work Phone: [facility] Work Phone: 1988 diphtheria, tetanus toxoids and acellular pertussis vaccine Michelle Jones TEACHER HOME THERAPY.CNM Work Phone: [facility] Work Phone: 1988 poliovirus vaccine, inactivated Michelle Jones TEACHER HOME THERAPY.CNM Work Phone: [facility] Work Phone: Payers Date Payer Category Payer Self-pay [id number] 2022 Private Health Insurance [id number] 2022 Unknown [id number] 2019 Unknown MMO MMO TPA [id number] 2019-Present [address] [place] [address] PPO [id number] 2019 Unknown MMO MMO TPA [id number] 2019-Present [address] [place] [address] PPO [id number] Unknown [id number] Unknown [id number] Unknown [id number] 2 Unknown [id number] 2 Unknown [id number] 2 Unknown [id number] 2 Unknown [id number] 2 Unknown [id number] 2 Unknown [id number] 2 Social History Date Type Detail Facility Start: 04-14-2013 End: 08-29-2023 Tobacco smoking status NHIS Never smoked tobacco [facility] Work Phone: Start: 04-14-2013 End: 04-04-2022 Tobacco use and exposure Smokeless tobacco non-user [facility] Work Phone: Start: 07-15-2019 End: 12-08-2024 Alcohol intake Current non-drinker of alcohol (finding) [facility] Start: 1990 Sex Assigned At Not on file [facility] Start: 12-16-2021 End: 12-26-2021 Exposure to SARS-CoV-2 (event) Unable to assess [facility] Start: 10-11-2021 End: 01-03-2023 Tobacco smoking status KYIS Unknown if ever smoked [facility] Start: 05-24-2019 None [facility] Start: 1990 Sex Assigned At Female [facility] Start: 01-06-2022 End: 01-16-2022 Exposure to SARS-CoV-2 (event) Not sure [facility] Work Phone: Start: 11-22-2022 End: 02-28-2023 History of Social function [facility] Start: 11-22-2022 End: 02-28-2023 Tobacco use panel [facility] Work Phone: National Score (1-10 0), lower number is lower risk 66 [facility] Start: 01-13-2022 Gender identity Identifies as female gender (finding) [facility] Start: 01-13-2022 Sexual orientation Heterosexual (fin deonna) [facility] Goals Date Patient Goal Desired Activity /State Clinical Notes 05-02-2019 to 12-08-2024 Michelle Jones APRN.CNM - 12/08/2024 1:49 PM EDTPatient InstructionsCourtney Yost APRN.CNP - 03/04/2024 11:34 AM Courtney Mosqueda APRN.STAFFING CONSULTANT - 02/28/2023 1:57 PM EDTPatient Instructions Note Date & Type Note Facility 12-08-2024 Note HNO ID: [id number] Author: MICHELLE JONES APRN.CNM Service: ? Author Type: Combination Technician Type: Progress Notes Filed: 12/08/2024 16:00 Note Text: Obstetrics and Gynecology [place] CLINICAL SCIENCES PROFESSOR Visit Subjective Recording using ambient STEERads software for draft documentation of the visit was discussed with the patient/authorized account services representative; all questions welcomed and answered. Patient/authorized account services representative agreed to proceed CHIEF COMPLAINT: Postcoital bleeding HPI: The patient is a 34-year-old female presenting with postcoital bleeding. The patient reports experiencing painless, bright red bleeding during intercourse over the past 6 weeks. The bleeding is not consistent with every encounter but is described as significant when it occurs. She denies any associated cramping or pain and has not experienced bleeding at other times. She notes minimal menstrual activity, with occasional spotting 1-2 days per month but no regular periods since the insertion of her IUD in March 2022. The IUD was initially expelled, which she attributes to cramping caused by Aldactone. After discontinuing Aldactone, the cramping ceased, and the IUD was successfully reinserted. She reports an increase in vaginal discharge recently. She denies concerns for STDs. She has a family history of thyroid issues, with her sister having had partial thyroidectomy and current thyroid nodules. She is unsure if she has had a thyroid check within the last year but believes she has had one in the past 3 years. 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 History Comments: Sexual Activity: Yes; Male Contraception: Vasectomy PAST MEDICAL HISTORY Diagnosis Date Back pain Hx of infectious mononucleosis Neck pain Seasonal allergies PAST SURGICAL HISTORY Procedure Laterality Date MIRENA IUD 12/13/2022 FAMILY HISTORY Problem Relation Age of Onset Arthritis Mother RA other (CHF) Mother GI Father reflux Thyroid Sister Hypothyroidism Heart Maternal Grandmother Hypertension Maternal Grandmother Stroke Maternal Grandmother Lipids Maternal Grandmother Lipids Maternal Grandfather COPD Paternal Grandmother Lung Cancer Paternal Grandmother Kidney Disease Paternal Grandfather Dementia Paternal Grandfather other (Aortic Aneurysm) Paternal Grandfather No Known Problems Daughter No Known Problems Son Social History Tobacco Use Smoking status: Never Smokeless tobacco: Never Vaping Use Vaping status: Never Used Substance Use Topics Alcohol use: No Drug use: Never Current Outpatient Medications Medication Sig buPROPion XL (WELLBUTRIN XL) 150 mg 24 hr tablet Take 150 mg by mouth once daily. levonorgestrel (MIRENA) 21 mcg/24 hours (8 yrs) 52 mg IUD 1 Each by INTRAUTERINE route as directed. escitalopram oxalate (LEXAPRO) 10 mg tablet Take 10 mg by mouth once daily. No current facility-administered medications for this visit. ALLERGIES Allergen Reactions Spironolactone Other: See Comments Penicillins Rash REVIEW OF SYSTEMS: Genitourinary: (+) postcoital vaginal bleeding, (+) amenorrhea, (+) increased vaginal discharge, (-) pelvic cramping, (-) dyspareunia Objective SENSITIVE EXAM: The sensitive examination was discussed with the Patient or Patient's Authorized Supervisor Fleshing. As applicable, any other physician, advance practice provider, medical student, or other health professional student that will be observing or involved in the sensitive examination for educational or training purposes was discussed with the Patient or Authorized Supervisor Fleshing. The Patient or Authorized Supervisor Fleshing has agreed to proceed with the sensitive examination. (Sensitive examination includes inspection and/or palpation of the breasts, pelvis, prostate and anorectal regions). PHYSICAL EXAM: BP 100/72 Wt 145 lb (65.8kg) LMP 12/08/2022 GENERAL: Pleasant; in no apparent distress BREAST: soft, non-tender, symmetric, no dominant mass, normal nipple-areolar complex, no lymphadenopathy, no nipple discharge PULMONARY: normal inspiratory effort ABDOMEN: soft, non-tender, no masses : - PELVIC: external genitalia normal, normal Bartholin's glands, urethra, [place]'s glands, no vulvar lesions, cervix mildly friable with very mild bleeding, no cervical polyps visualized, good vaginal support, yellow vaginal discharge present, normal appearing perineal body and perianal region, IUD in place - BIMANUAL: uterus normal size, shape and consistency, no adnexal masses, non-tender - Patient consent for exam received NEURO: alert and oriented x3 EXTREMITIES: normal ASSESSMENT AND PLAN: 1. Abnormal vaginal bleeding (N93.9) Postcoital and contact bleeding (N93.0) Experiencing painless bright red bleeding post (more content not included)... [facility] 12-08-2024 History of Presen t illness Narrative Images from the original note were not included. Obstetrics and Gynecology [place] CLINICAL SCIENCES PROFESSOR Visit Subjective Recording using ambient STEERads software for draft documentation of the visit was discussed with the patient/authorized account services representative; all questions welcomed and answered. Patient/authorized account services representative agreed to proceed CHIEF COMPLAINT: Postcoital bleeding HPI: The patient is a 34-year-old female presenting with postcoital bleeding. The patient reports experiencing painless, bright red bleeding during intercourse over the past 6 weeks. The bleeding is not consistent with every encounter but is described as significant when it occurs. She denies any associated cramping or pain and has not experienced bleeding at other times. She notes minimal menstrual activity, with occasional spotting 1-2 days per month but no regular periods since the insertion of her IUD in March 2022. The IUD was initially expelled, which she attributes to cramping caused by Aldactone. After discontinuing Aldactone, the cramping ceased, and the IUD was successfully reinserted. She reports an increase in vaginal discharge recently. She denies concerns for STDs. She has a family history of thyroid issues, with her sister having had partial thyroidectomy and current thyroid nodules. She is unsure if she has had a thyroid check within the last year but believes she has had one in the past 3 years. 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 History Comments: Sexual Activity: Yes; Male Contraception: Vasectomy PAST MEDICAL HISTORY Diagnosis Date Back pain Hx of infectious mononucleosis Neck pain Seasonal allergies PAST SURGICAL HISTORY Procedure Laterality Date MIRENA IUD 12/13/2022 FAMILY HISTORY Problem Relation Age of Onset Arthritis Mother RA other (CHF) Mother GI Father reflux Thyroid Sister Hypothyroidism Heart Maternal Grandmother Hypertension Maternal Grandmother Stroke Maternal Grandmother Lipids Maternal Grandmother Lipids Maternal Grandfather COPD Paternal Grandmother Lung Cancer Paternal Grandmother Kidney Disease Paternal Grandfather Dementia Paternal Grandfather other (Aortic Aneurysm) Paternal Grandfather No Known Problems Daughter No Known Problems Son Social History Tobacco Use Smoking status: Never Smokeless tobacco: Never Vaping Use Vaping status: Never Used Substance Use Topics Alcohol use: No Drug use: Never Current Outpatient Medications Medication Sig buPROPion XL (WELLBUTRIN XL) 150 mg 24 hr tablet Take 150 mg by mouth once daily. levonorgestrel (MIRENA) 21 mcg/24 hours (8 yrs) 52 mg IUD 1 Each by INTRAUTERINE route as directed. escitalopram oxalate (LEXAPRO) 10 mg tablet Take 10 mg by mouth once daily. No current facility-administered medications for this visit. ALLERGIES Allergen Reactions Spironolactone Other: See Comments Penicillins Rash REVIEW OF SYSTEMS: Genitourinary: (+) postcoital vaginal bleeding, (+) amenorrhea, (+) increased vaginal discharge, (-) pelvic cramping, (-) dyspareunia Objective SENSITIVE EXAM: The sensitive examination was discussed with the Patient or Patient's Authorized Supervisor Fleshing. As applicable, any other physician, advance practice provider, medical student, or other health professional student that will be observing or involved in the sensitive examination for educational or training purposes was discussed with the Patient or Authorized Supervisor Fleshing. The Patient or Authorized Supervisor Fleshing has agreed to proceed with the sensitive examination. (Sensitive examination includes inspection and/or palpation of the breasts, pelvis, prostate and anorectal regions). PHYSICAL EXAM: BP 100/72 Wt 145 lb (65.8kg) LMP 12/08/2022 GENERAL: Pleasant; in no apparent distress BREAST: soft, non-tender, symmetric, no dominant mass, normal nipple-areolar complex, no lymphadenopathy, no nipple discharge PULMONARY: normal inspiratory effort ABDOMEN: soft, non-tender, no masses : - PELVIC: external genitalia normal, normal Bartholin's glands, urethra, [place]'s glands, no vulvar lesions, cervix mildly friable with very mild bleeding, no cervical polyps visualized, good vaginal support, yellow vaginal discharge present, normal appearing perineal body and perianal region, IUD in place - BIMANUAL: uterus normal size, shape and consistency, no adnexal masses, non-tender - Patient consent for exam received NEURO: alert and oriented x3 EXTREMITIES: normal ASSESSMENT AND PLAN: 1. Abnormal vaginal bleeding (N93.9) Postcoital and contact bleeding (N93.0) Experiencing painless bright red bleeding postcoitally for the last six weeks. No associated cramping or pain. IUD in place since March 2022. Cervical exam reveals mild friability with very mild bleeding, no polyps observed. - Ordered tests for bacterial vaginosis and yeast infections. - If tests are positive, initiate appropriate treatment and re-evaluate in 4-6 weeks. - If tests are negative, initiate a course of doxycycline. - Discussed potential use of silver nitrate if bleeding persists. - Patient to monitor symptoms and report any recurrence. 2. Family history of thyroid disease (Z83.49) Sister has thyroid issues, including nodules and partial thyroidectomy. Patient has not had a thyroid function test in the last year. - Ordered thyroid function test. Michelle Jones APRN.CNM documented in this encounter [facility] 03-04-2024 Instructions Courtney Yost APRN.CNP - 03/04/2024 11:57 AM EDT Lexapro may be causing weight gain. Can try bupropion. Fluoxetine or sertraline if bupropion does not work for you. - Eat primarily whole foods. Limit carbs, especially processed carbs. Eat - Meat, vegetables and fruits with skin on if possible, eggs, cheese. - Do not drink your calories - 30 grams of protein for your first meal of the day decreases your hunger during the day by up to 40 %. Options include: Premier Protein or generic 30 gm protein 1 gm sugar or 5 eggs or 2-3 eggs and some unbreaded meat and/or cheese. No fruit, vegetables, bread, grain, yogurt, Smoothies, etc. - Walk for 15 minutes immediately after meal documented in this encounter [facility] 03-04-2024 Note HNO ID: [id number] Author: COURTNEY YOST APRN.CNP Service: ? Author Type: Nurse Practitioner Type: Progress Notes Filed: 03/04/2024 12:29 Note Text: Site Coordinator offered: Patient declinesHarjinder Schwartz is a 33 year old who presents for an annual gynecologic exam with complaints of weight gain. 14 lb weight gain in past year. Started escitalopram 1-1.5 years ago for anxiety. 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 Menses: occasional spotting with IUD inserted 12/13/2022 Mirena Contraception: vasectomy HPV vaccine: No Last Pap: 07/15/2019 normal HPV: 07/14/2019 negative History of abnormal pap: No Last mammogram: never Sexually active: Yes History of STDS: None Patient concerns for STD exposure: No. Time with current partner: long-term Pain with intercourse: random Postcoital bleeding: random blood tinged discharge next day Documentation from previous visit of 02/28/2023 was copied and pasted, documentation has been reviewed and edited as necessary for today's visit. 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: Sexual Activity: Yes; Male Contraception: Vasectomy PAST MEDICAL HISTORY Diagnosis Date Back pain Hx of infectious mononucleosis Neck pain Seasonal allergies PAST SURGICAL HISTORY Procedure Laterality Date MIRENA IUD 12/13/2022 FAMILY HISTORY Problem Relation Age of Onset Arthritis Mother RA other (CHF) Mother GI Father reflux Thyroid Sister Hypothyroidism Heart Maternal Grandmother Hypertension Maternal Grandmother Stroke Maternal Grandmother Lipids Maternal Grandmother Lipids Maternal Grandfather COPD Paternal Grandmother Lung Cancer Paternal Grandmother Kidney Disease Paternal Grandfather Dementia Paternal Grandfather other (Aortic Aneurysm) Paternal Grandfather No Known Problems Daughter No Known Problems Son SOCIAL HISTORY Social History Tobacco Use Smoking status: Never Smokeless tobacco: Never Vaping Use Vaping status: Never Used Substance Use Topics Alcohol use: No Drug use: Never REVIEW OF SYSTEMS Abdomen: No abdominal pain, nausea, vomiting, diarrhea, or constipation. No bloating, early satiety, indigestion, or increased flatulence. Bladder: No dysuria, gross hematuria, urinary frequency, urinary urgency, or incontinence. Breast: No breast lumps, nipple d/c, overlying skin changes, redness or skin retraction. Allergies and current medication updated:Yes SENSITIVE EXAM: The sensitive examination was discussed with the Patient or Patient's Authorized Supervisor Fleshing. As applicable, any other physician, advance practice provider, medical student, or other health professional student that will be observing or involved in the sensitive examination for educational or training purposes was discussed with the Patient or Authorized Supervisor Fleshing. The Patient or Authorized Supervisor Fleshing has agreed to proceed with the sensitive examination. (Sensitive examination includes inspection and/or palpation of the breasts, pelvis, prostate and anorectal regions). EXAM: BP 114/60 Ht 5' 2.008 (1.58m) Wt 156 lb (70.8kg) LMP 12/08/2022 BMI 28.53 kg/(m2). 14 lb weight gain GENERAL: pleasant, female in no apparent distress HEENT: Normocephalic, atraumatic, mucus membranes moist, and no lesions NECK: Supple, full range of motion, no adenopathy, and thyroid normal DERMATOLOGY: Normal, without lesions, non-icteric, and non-hirsute BREAST: soft, non-tender, symmetric, no dominant mass, normal nipple-areolar complex, no lymphadenopathy, and no nipple discharge CHEST: Normal inspiratory effort ABDOMEN: soft no masses. Mild generalized tenderness PELVIC: external genitalia normal, normal Bartholin's glands, urethra, [place]'s glands, no vulvar lesions, no cervical lesions,blood tinged physiologic discharge present, normal appearing perineal body and perianal region, IUD strings visible BIMANUAL: uterus normal size, shape and consistency, no adnexal masses, and non-tender RECTOVAGINAL: deferred. NEURO: alert and oriented x3,exam grossly non-focal EXTREMITIES: normal ASSESSMENT/PLAN: 1) Health maintenance: Pap done with HPV. Mammogram starting age 40. Nutrition, exercise and routine health maintenance exams reviewed. Calcium/Vitamin D supplementation information provided. 2. Unintended weight gain - ICD9: 783.1, ICD10: R63.5 - discussed that escitalopram can be a cause of weight gain. Can discuss trial of bupropion with PCP. - Eat primarily whole foods. Limit carbs, especially processed carbs. Eat - Meat, vegetables and fruits with skin on if possible, eggs, cheese. - Do not drink your calories - 30 grams of protein for your first meal of the day decreases your hunger during the day by up to 40 (more content not included)... [facility] 03-04-2024 History of Presen t illness Narrative Site Coordinator offered: Patient declines. Leena is a 33 year old who presents for an annual gynecologic exam with complaints of weight gain. 14 lb weight gain in past year. Started escitalopram 1-1.5 years ago for anxiety. 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 Menses: occasional spotting with IUD inserted 12/13/2022 Mirena Contraception: vasectomy HPV vaccine: No Last Pap: 07/15/2019 normal HPV: 07/14/2019 negative History of abnormal pap: No Last mammogram: never Sexually active: Yes History of STDS: None Patient concerns for STD exposure: No. Time with current partner: long-term Pain with intercourse: random Postcoital bleeding: random blood tinged discharge next day Documentation from previous visit of 02/28/2023 was copied and pasted, documentation has been reviewed and edited as necessary for today's visit. 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: Sexual Activity: Yes; Male Contraception: Vasectomy PAST MEDICAL HISTORY Diagnosis Date Back pain Hx of infectious mononucleosis Neck pain Seasonal allergies PAST SURGICAL HISTORY Procedure Laterality Date MIRENA IUD 12/13/2022 FAMILY HISTORY Problem Relation Age of Onset Arthritis Mother RA other (CHF) Mother GI Father reflux Thyroid Sister Hypothyroidism Heart Maternal Grandmother Hypertension Maternal Grandmother Stroke Maternal Grandmother Lipids Maternal Grandmother Lipids Maternal Grandfather COPD Paternal Grandmother Lung Cancer Paternal Grandmother Kidney Disease Paternal Grandfather Dementia Paternal Grandfather other (Aortic Aneurysm) Paternal Grandfather No Known Problems Daughter No Known Problems Son SOCIAL HISTORY Social History Tobacco Use Smoking status: Never Smokeless tobacco: Never Vaping Use Vaping status: Never Used Substance Use Topics Alcohol use: No Drug use: Never REVIEW OF SYSTEMS Abdomen: No abdominal pain, nausea, vomiting, diarrhea, or constipation. No bloating, early satiety, indigestion, or increased flatulence. Bladder: No dysuria, gross hematuria, urinary frequency, urinary urgency, or incontinence. Breast: No breast lumps, nipple d/c, overlying skin changes, redness or skin retraction. Allergies and current medication updated:Yes SENSITIVE EXAM: The sensitive examination was discussed with the Patient or Patient's Authorized Supervisor Fleshing. As applicable, any other physician, advance practice provider, medical student, or other health professional student that will be observing or involved in the sensitive examination for educational or training purposes was discussed with the Patient or Authorized Supervisor Fleshing. The Patient or Authorized Supervisor Fleshing has agreed to proceed with the sensitive examination. (Sensitive examination includes inspection and/or palpation of the breasts, pelvis, prostate and anorectal regions). EXAM: BP 114/60 Ht 5' 2.008 (1.58m) Wt 156 lb (70.8kg) LMP 12/08/2022 BMI 28.53 kg/(m^2). 14 lb weight gain GENERAL: pleasant, female in no apparent distress HEENT: Normocephalic, atraumatic, mucus membranes moist, and no lesions NECK: Supple, full range of motion, no adenopathy, and thyroid normal DERMATOLOGY: Normal, without lesions, non-icteric, and non-hirsute BREAST: soft, non-tender, symmetric, no dominant mass, normal nipple-areolar complex, no lymphadenopathy, and no nipple discharge CHEST: Normal inspiratory effort ABDOMEN: soft no masses. Mild generalized tenderness PELVIC: external genitalia normal, normal Bartholin's glands, urethra, [place]'s glands, no vulvar lesions, no cervical lesions,blood tinged physiologic discharge present, normal appearing perineal body and perianal region, IUD strings visible BIMANUAL: uterus normal size, shape and consistency, no adnexal masses, and non-tender RECTOVAGINAL: deferred. NEURO: alert and oriented x3,exam grossly non-focal EXTREMITIES: normal ASSESSMENT/PLAN: 1) Health maintenance: Pap done with HPV. Mammogram starting age 40. Nutrition, exercise and routine health maintenance exams reviewed. Calcium/Vitamin D supplementation information provided. 2. Unintended weight gain - ICD9: 783.1, ICD10: R63.5 - discussed that escitalopram can be a cause of weight gain. Can discuss trial of bupropion with PCP. - Eat primarily whole foods. Limit carbs, especially processed carbs. Eat - Meat, vegetables and fruits with skin on if possible, eggs, cheese. - Do not drink your calories - 30 grams of protein for your first meal of the day decreases your hunger during the day by up to 40 %. Options include: Premier Protein or generic 30 gm protein 1 gm sugar or 5 eggs or 2-3 eggs and some unbreaded meat and/or cheese. No fruit, vegetables, bread, grain, yogurt, Smoothies, etc. - Walk for 15 minutes immediately after meal 3) Contraception: vasectomy. Contraceptive options reviewed and information provided. 4) STD screening: Declined STD check. 5) Follow up one year or sooner as needed Courtney Yost APRN.STAFFING CONSULTANT I spent a total of 20 minutes on the date of the service which included preparing to see the patient, [id number] patient care, completing clinical documentation, obtaining and/or reviewing separately obtained history, performing a medically appropriate examination, and counseling and educating the patient/family/caregiver. documented in this encounter [facility] 02-28-2023 History of Presen t illness Narrative Site Coordinator offered: Patient declinesHarjinder Schwartz is a 32 year old who presents for an annual gynecologic exam without complaints. 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 Menses: spotting since IUD inserted 12/13/2022 Mirena Contraception: vasectomy HPV vaccine: No Last Pap: 07/15/2019 normal HPV: 07/14/2019 negative History of abnormal pap: No Last mammogram: never Sexually active: Yes History of STDS: None Patient concerns for STD exposure: No. 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: Sexual Activity: Yes; Male Contraception: Vasectomy PAST MEDICAL HISTORY Diagnosis Date Back pain Hx of infectious mononucleosis Neck pain Seasonal allergies PAST SURGICAL HISTORY Procedure Laterality Date MIRENA IUD 12/13/2022 FAMILY HISTORY Problem Relation Age of Onset Arthritis Mother RA GI Father reflux Hypertension Father Thyroid Sister Hypothyroidism Heart Maternal Grandmother Hypertension Maternal Grandmother Stroke Maternal Grandmother Lipids Maternal Grandmother Lipids Maternal Grandfather COPD Paternal Grandmother Lung Cancer Paternal Grandmother Kidney Disease Paternal Grandfather Dementia Paternal Grandfather other (Aortic Aneurysm) Paternal Grandfather No Known Problems Daughter No Known Problems Son SOCIAL HISTORY Social History Tobacco Use Smoking status: Never Smokeless tobacco: Never Vaping Use Vaping Use: Never used Substance Use Topics Alcohol use: No Drug use: Never REVIEW OF SYSTEMS Abdomen: No abdominal pain, nausea, vomiting, diarrhea, or constipation. No bloating, early satiety, indigestion, or increased flatulence. Bladder: No dysuria, gross hematuria, urinary frequency, urinary urgency, or incontinence. Breast: No breast lumps, nipple d/c, overlying skin changes, redness or skin retraction. Allergies and current medication updated:Yes EXAM: BP 112/70 Ht 5' 2 (1.58m) Wt 142 lb (64.4kg) LMP 12/08/2022 BMI 25.97 kg/(m^2). GENERAL: pleasant, female in no apparent distress HEENT: Normocephalic, atraumatic, mucus membranes moist, and no lesions NECK: Supple, full range of motion, no adenopathy, and thyroid normal DERMATOLOGY: Normal, without lesions, non-icteric, and non-hirsute BREAST: soft, non-tender, symmetric, no dominant mass, normal nipple-areolar complex, no lymphadenopathy, and no nipple discharge CHEST: Normal inspiratory effort ABDOMEN: soft, non-tender, and no masses PELVIC: external genitalia normal, normal Bartholin's glands, urethra, [place]'s glands, no vulvar lesions, no cervical lesions, good vaginal support, physiologic discharge present, normal appearing perineal body and perianal region. IUD strings visualized. BIMANUAL: uterus normal size, shape and consistency, no adnexal masses, and non-tender RECTOVAGINAL: deferred. NEURO: alert and oriented x3,exam grossly non-focal EXTREMITIES: normal ASSESSMENT/PLAN: 1) Health maintenance: Pap/HPV up to date. Mammogram starting age 40. Nutrition, exercise and routine health maintenance exams reviewed. Mirena IUD - in proper position 2) Contraception: vasectomy. Contraceptive options reviewed and information provided. 3) STD screening: Declined STD check. 4) Follow up one year or sooner as needed Courtney Yost APRN.STAFFING CONSULTANT documented in this encounter [facility] 12-13-2022 Instructions Caro Thao Ma - 12/13/2022 1:37 PM EDT POST IUD INSTRUCTIONS You may have irregular bleeding during the first 3 months of use. You may have mild-severe cramping for the next 48 hours. You may use over the counter medication (Motrin, Tylenol) as needed. Your IUD must be removed or replaced based on the following table: IUD Type Removed or replaced within: Maria L 3 years Kyleena 5 years Mirena 8 years Paragard 10 years Call my office for signs/symptoms of infection such as severe cramping, fever, or unusual bleeding. Check for string placement as instructed by your doctor. If you have any additional questions, please contact the office. documented in this encounter [facility] 12-13-2022 History of Presen t illness Narrative Site Coordinator offered: Patient declines. Leena presents today for IUD insertion for menstrual dysfunction and expulsion. Patient's last menstrual period was 12/08/2022 (exact date). GC/chlamydia: Not done: no risk factors and/or patient declines screening test: negative Side effects including irregular bleeding were discussed with the patient. The patient understands that it should be removed in 8 years or sooner if the patient desires a . IUD source: office provided IUD lot #: [id number] Exp date: 10/2024 UNIVERSAL PROTOCOL / SAFETY CHECKLIST Procedure to be Performed: Mirena IUD insertion Sign In: A Moment of CARE was completed. Personnel directly involved with the procedure wore the appropriate PPE (Personal Protective Equipment). Patient/Surrogate Stated/Verified: PATIENT VERIFIED(optional for EMERGENT procedures): Patient name, Date of , Relevant allergies, and The intended procedure Time Out Communication: Intended patient and procedure match the source documents. Consent documented and matches the intended procedure. Relevant labs, photos, and/or imaging studies have been reviewed. Implant(s) inserted: Correct implant(s) confirmed including size and side. and Expiration date(s) reviewed. Sign Out: SIGN OUT (optional for EMERGENT procedures): No specimen collected. All instruments, equipment, possible retained foreign bodies accounted for. Post-procedure follow-up management communicated and Plan of Care Visit completed when applicable. The cervix was prepped with betadine. The uterus sounded to 8 cm and the uterus is Anteverted. Using sterile technique, the Mirena IUD was inserted without difficulty and the string was cut to 3 cm from the external os of the cervix. Patient tolerated procedure well. PLAN: Patient was advised to observe for signs and symptoms of infection including but not limited to fever, malodorous vaginal discharge and/or pain. The patient was told to check the string monthly for accurate placement. Bleeding expectations were reviewed. Follow up in one month. Courtney Yost APRN.CNP documented in this encounter [facility] 11-22-2022 History of Presen t illness Narrative Site Coordinator offered: Patient declines. Leena Hart presents today for IUD check. She had a Mirena placed on 04/04/2022. She has had no complications since placement. Unable to feel strings. Did have one week of cramping recently but did not see IUD if expelled. PHYSICAL EXAMINATION: BP 100/60 Wt 140 lb 6.4 oz (63.7kg) LMP 03/05/2022 ABDOMEN:soft and non-tender CERVIX: smooth, no lesions. IUD strings not visible. UTERUS: normal size ADNEXA: negative for tenderness or masses ASSESSMENT/PLAN: 1. Intrauterine contraceptive device threads lost, initial encounter - ICD9: 996.32, ICD10: T83.32XA - PELVIC US WHI - 3pm today - IF Mirena IUD expelled, she would like it replaced but not until after her vacation next week. [id number] - pt notified per myself that IUD is not in uterus and has been expelled. She would like Mirena IUD re-inserted with next menses. Vaginal misoprostol ordered and use explained. She will call to schedule at beginning of next menses. Vasectomy for contraception. Follow-up at IUD insertion. Courtney Yost APRN.CNP Medical Decision Making: Problems: Moderate: New problem with uncertain prognosis Data: Unique test(s) ordered: 1 Risk: Moderate: Drug management Medical Decision Making Level: 4 - Moderate documented in this encounter [facility] 11-20-2022 Miscellaneous Notes Spoke with pt and sooner appointment given. Emily Irwin LPN documented in this encounter [facility] 05-16-2022 Instructions Michelle Jones APRN.CNM - 05/16/2022 8:45 AM EST DIETARY GUIDELINES FOR INTERSTITIAL CYSTITIS FOOD CATEGORY PERMITTED FOODS FOODS TO AVOID OR USE CAUTIOUSLY Fruits Blueberries, melons other than cantaloupe and pears All other fruits and juices made from them Vegetables Potatoes, homegrown tomatoes, and vegetables other than those listed on the right Eladio beans, gordon beans, onions, rhubarb, tofu, and store-bought tomatoes Milk/Dairy White chocolate, cottage cheese, [place] cheese, milk Aged cheese, sour cream, eggs, yogurt, chocolate Carbohydrates/Grains Pasta, rice, and breads other than those listed on the right Myra and sourdough breads Meats/Fish Poultry, fish and meats other than those listed on the right Aged, canned and cured, processed and smoked meats and fish, anchovies, caviar, chicken livers, corned beef and meats that contain nitrates or nitrites Nuts Almonds, cashews and pine nuts Most other nuts Beverages Bottled or spring water, decaffeinated, acid-free coffee and tea, some herbal teas Alcoholic beverages, beer and wine, carbonated drinks, coffee, tea and cranberry juice Seasonings Garlic and seasonings other than below Mayonnaise, miso, spicy foods (especially [place]i, Citizen Of [place], [place]an and Prydeinig foods.) *Adapted with permission from the [employer] On Course for Better Health documented in this encounter [facility] 05-16-2022 History of Presen t illness Narrative Leena Hart presents today for IUD check. She had a Mirena placed on 04/04/2022. She has had spotting since placement. Spotting everyday since placement. Cramping for first 2 weeks then stopped. Increased emotions, decreased libido. Does not feel like emotions are up and down and level. Having dysuria and took Keflex and pyridium. REVIEW OF SYSTEMS: GENERAL: No weight loss, malaise or fevers PHYSICAL EXAMINATION: BP 108/68 Wt 139 lb 9.6 oz (63.3kg) LMP 03/05/2022 ABDOMEN:soft, non-tender, no masses, no hepatosplenomegaly, and no lymphadenopathy EXTERNAL GENITALIA: Normal genitalia and Bartholins, Urethra, Sken'e normal CERVIX: smooth, no lesions. IUD strings visible. UTERUS: normal size, mid-plane, regular, non-tender, and freely mobile ADNEXA: negative for tenderness or masses IMPRESSION/PLAN: IUD correctly positioned. Patient counseled regarding monthly string check. Follow up for annual exam or sooner if needed. Recommend seeing urology for ongoing urinary complaints. Michelle Jones APRN.CNM documented in this encounter [facility] 04-04-2022 Instructions Ant Mon Cma - 04/04/2022 8:34 AM EDT POST IUD INSTRUCTIONS You may have irregular bleeding during the first 3 months of use. You may have mild-severe cramping for the next 48 hours. You may use over the counter medication (Motrin, Tylenol) as needed. Your IUD must be removed or replaced based on the following table: IUD Type Removed or replaced within: Maria L 3 years Kyleena 5 years Mirena 8 years Paragard 10 years Call my office for signs/symptoms of infection such as severe cramping, fever, or unusual bleeding. Check for string placement as instructed by your doctor. If you have any additional questions, please contact the office. documented in this encounter [facility] 04-04-2022 History of Presen t illness Narrative Leena presents today for IUD insertion for menstrual dysfunction. Patient's last menstrual period was 03/05/2022 (exact date). GC/chlamydia: Negative on 09/25/2018 test: negative Side effects including irregular bleeding were discussed with the patient. The patient understands that it should be removed in 8 years or sooner if the patient desires a . IUD source: office provided IUD lot #: [id number] Exp date: 05/17/2024 UNIVERSAL PROTOCOL / SAFETY CHECKLIST Procedure to be Performed: Mirena IUD insertion Sign In: A Moment of CARE was completed. Personnel directly involved with the procedure wore the appropriate PPE (Personal Protective Equipment). Special equipment: None Patient/Surrogate Stated/Verified: PATIENT VERIFIED(optional for EMERGENT procedures): Patient name, Date of , Relevant allergies, and The intended procedure Time Out Communication: Intended patient and procedure match the source documents. Consent documented and matches the intended procedure. Relevant labs, photos, and/or imaging studies have been reviewed. Correct side/site marked and visible. Medications required for procedure verified. No fire risk assessment and interventions applicable. Implant(s) inserted: Correct implant(s) confirmed including size and side. and Expiration date(s) reviewed. Sign Out: SIGN OUT (optional for EMERGENT procedures): No specimen collected. All instruments, equipment, possible retained foreign bodies accounted for. Post-procedure follow-up management communicated and Plan of Care Visit completed when applicable. The uterus sounded to 8 cm and the uterus is Midposition.. After prepping the cervix with betadine and using sterile technique, the Mirena IUD was inserted without difficulty and the string was cut to 3 cm from the external os of the cervix. Patient tolerated procedure well. PLAN: Patient was advised to observe for signs and symptoms of infection including but not limited to fever, malodorous vaginal discharge and/or pain. The patient was told to check the string monthly for accurate placement. Bleeding expectations were reviewed. Reviewed all previous labs normal and US showing adenomyosis. At this time, will see if Mirena brings resolution of heavy menses. Will continue to be off of Aldactone but may start if Acne returns. Follow up after next menses for string check. Michelle Jones APRN.CNM documented in this encounter [facility] 01-16-2022 Instructions Michelle Jones APRN.CNM - 01/16/2022 11:41 AM EDT DIETARY GUIDELINES FOR INTERSTITIAL CYSTITIS FOOD CATEGORY PERMITTED FOODS FOODS TO AVOID OR USE CAUTIOUSLY Fruits Blueberries, melons other than cantaloupe and pears All other fruits and juices made from them Vegetables Potatoes, homegrown tomatoes, and vegetables other than those listed on the right Eladio beans, gordon beans, onions, rhubarb, tofu, and store-bought tomatoes Milk/Dairy White chocolate, cottage cheese, [place] cheese, milk Aged cheese, sour cream, eggs, yogurt, chocolate Carbohydrates/Grains Pasta, rice, and breads other than those listed on the right Myra and sourdough breads Meats/FishElimination Diet with no gluten, dairy, eggs, corn, soy, yeast, sugar, shellfish, pork, processed meats, coffee/tea/chocolate Poultry, fish and meats other than those listed on the right Aged, canned and cured, processed and smoked meats and fish, anchovies, caviar, chicken livers, corned beef and meats that contain nitrates or nitrites Nuts Almonds, cashews and pine nuts Most other nuts Beverages Bottled or spring water, decaffeinated, acid-free coffee and tea, some herbal teas Alcoholic beverages, beer and wine, carbonated drinks, coffee, tea and cranberry juice Seasonings Garlic and seasonings other than below Mayonnaise, miso, spicy foods (especially [place]i, Citizen Of [place], [place]an and Prydeinig foods.) *Adapted with permission from the [employer] On Course for Better Health documented in this encounter [facility] 01-16-2022 History of Presen t illness Narrative Leena is a 31 year old who presents for an annual gynecologic exam with complaints, irregular bleeding. Menses: Menses are 2 weeks on and one week off. Irregular. 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 Usually stays dark red when bleeding. No filling pad every hour and not heavy. LMP 11/10/21 but since that menses bleeding has been off and on and irregular. Last regular menses was in September 2021, prior to this they were every 30 days with 6 days of bleeding and no heavy bleeding. Denies any pelvic pain. got vasectomy. No PMS symptoms-no cramping or acne like before. Started aldactone in Fall of 2021, had light bleeding for 2 weeks after starting then menses became regular. Started this due to hormonal acne with trillium king salmon. Fatigue increased since 05/2021. Increased upon rising and better throughout the day. Naps occasionally. Feeling stiff and muscle cramping at night. Feels like she worked out doing simple things. Feels this is every day. No exercise. Feels she eats well balanced diet tries to avoid processed foods, refined sugar, fruits and veggies. Feels she may have more carbs but more complex. Feels she could increase water intake. Urgency, frequency, dysuria. Will gett flank pain and chills. 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 [employer] History Comments: Sexual Activity: Yes; Male Contraception: None PAST MEDICAL HISTORY Diagnosis Date Back pain Hx of infectious mononucleosis Neck pain Seeing admitted attorneys Seasonal allergies PAST SURGICAL HISTORY Procedure Laterality Date NONE FAMILY HISTORY Problem Relation Age of Onset Arthritis Mother RA GI Father reflux Hypertension Father Thyroid Sister Hypothyroidism Heart Maternal Grandmother Hypertension Maternal Grandmother Stroke Maternal Grandmother Lipids Maternal Grandmother Lipids Maternal Grandfather COPD Paternal Grandmother Lung Cancer Paternal Grandmother Kidney Disease Paternal Grandfather Dementia Paternal Grandfather other (Aortic Aneurysm) Paternal Grandfather No Known Problems Daughter No Known Problems Son SOCIAL HISTORY Social History Tobacco Use Smoking status: Never Smoker Smokeless tobacco: Never Used Vaping Use Vaping Use: Never used Substance Use Topics Alcohol use: No Drug use: Never REVIEW OF SYSTEMS Abdomen: No abdominal pain, nausea, vomiting, diarrhea, or constipation. No bloating, early satiety, indigestion, or increased flatulence. Bladder: No dysuria, gross hematuria, urinary frequency, urinary urgency, or incontinence. Breast: No breast lumps, nipple d/c, overlying skin changes, redness or skin retraction. Allergies and current medication updated:Yes EXAM: BP 106/66 Wt 136 lb (61.7kg) LMP 11/10/2021 GENERAL: pleasant, female in no apparent distress HEENT: Normocephalic, atraumatic, mucus membranes moist and no lesions NECK: Supple, full range of motion, no adenopathy and thyroid normal DERMATOLOGY: Normal, without lesions, non-icteric. Hirsutim along jaw line BREAST: soft, non-tender, symmetric, no dominant mass, normal nipple-areolar complex, no lymphadenopathy and no nipple discharge CHEST: Normal inspiratory effort ABDOMEN: soft, non-tender and no masses PELVIC: external genitalia normal, normal Bartholin's glands, urethra, [place]'s glands, no vulvar lesions, no cervical lesions, good vaginal support, small amount of dwyer discharge present, normal appearing perineal body and perianal region BIMANUAL: uterus normal size, shape and consistency, no adnexal masses and non-tender RECTOVAGINAL: rectovaginal exam negative for any masses or nodularity. NEURO: alert and oriented x3,exam grossly non-focal EXTREMITIES: normal Pelvic US on 01/11/22 from [facility] shows normal uterine size and endometrial stripe. Adenexa and ovaries normal. Fibroid changes see but no fibroids. Uterus heterogeneous. ASSESSMENT/PLAN: 1. Encounter for gynecological examination with abnormal finding 2. Abnormal uterine bleeding (AUB) -Pelvic US reviewed and reveals possible fibroid changes but no fibroid. Discussed possible endometreosis. Discussed management with hormones could be an option but treatment is hysterectomy. At this time, do not recommend this as it is minimal bleeding and no pain. Patient voiced understanding and agreeable. Discussed annovera ring vs mirena IUD. She is undecided but would like to check insurance pricing. Will schedule IUD at this time though. Risks benefits and alternatives of both discussed, handouts given. 3. Malaise and fatigue - Thyroid studies 4. Acne vulgaris 5. Hirsutism -recommend stopping aldactone for 4 weeks prior to labs. Patient is agreeable to this. 1) Health maintenance: Pap/HPV up to date. Mammogram starting age 40. Nutrition, exercise and routine health maintenance exams reviewed. Calcium/Vitamin D supplementation information provided. Lipids/glucose: followed by PCP Vitamin D: ordered 2) Contraception: vasectomy. Contraceptive options reviewed and information provided. 3) STD screening: Declined STD check. 4) Follow up one year or sooner as needed 5) Primary care for UTI and muscle symptoms Michelle Jones APRN.CNM documented in this encounter [facility] 01-04-2022 Miscellaneous Notes [facility] order form signed by Michelle Jones and faxed documented in this encounter [facility] 05-02-2019 History of Past i llness Narrative Problem Noted Date Resolved Date Uterine size-date discrepancy, third trimester 1 07/02/2018 07/09/2019 Overview: 04/24/19-Growth US for size less than dates. EFW is 6 lb 2 oz, which is at the 31st percentile. STEPHEN 19.6. Michelle Jones APRN.CNM Encounter for supervision of normal in first trimester 09/25/2018 07/09/2019 size inconsistent with dates 09/25/2018 04/16/2019 Overview: 09/25/18-Dating U/S ordered for 2 weeks. Establish SANTOSH at that time. Michelle Jones APRN.CNM documented as of this encounter (statuses as of 01/04/2022) [facility] History of Past illness Narrative* Problem Noted Date Resolved Date Uterine size-date discrepancy, third trimester 1 07/02/2018 07/09/2019 Overview: 04/24/19-Growth US for size less than dates. EFW is 6 lb 2 oz, which is at the 31st percentile. STEPHEN 19.6. Michelle Jones APRN.CNM Encounter for supervision of normal in first trimester 09/25/2018 07/09/2019 size inconsistent with dates 09/25/2018 04/16/2019 Overview: 09/25/18-Dating U/S ordered for 2 weeks. Establish SANTOSH at that time. Michelle Jones APRN.CNM documented as of this encounter (statuses as of 01/16/2022) [facility] History of Past illness Narrative* Problem Noted Date Resolved Date Uterine size-date discrepancy, third trimester 1 07/02/2018 07/09/2019 Overview: 04/24/19-Growth US for size less than dates. EFW is 6 lb 2 oz, which is at the 31st percentile. STEPHEN 19.6. Michelle Jones APRN.CNM Encounter for supervision of normal in first trimester 09/25/2018 07/09/2019 size inconsistent with dates 09/25/2018 04/16/2019 Overview: 09/25/18-Dating U/S ordered for 2 weeks. Establish SANTOSH at that time. Michelle Jones APRN.CNM documented as of this encounter (statuses as of 04/04/2022) [facility] History of Past illness Narrative* Problem Noted Date Resolved Date Uterine size-date discrepancy, third trimester 1 07/02/2018 07/09/2019 Overview: 04/24/19-Growth US for size less than dates. EFW is 6 lb 2 oz, which is at the 31st percentile. STEPHEN 19.6. Michelle Jones APRN.CNM Encounter for supervision of normal in first trimester 09/25/2018 07/09/2019 size inconsistent with dates 09/25/2018 04/16/2019 Overview: 09/25/18-Dating U/S ordered for 2 weeks. Establish SANTOSH at that time. Michelle Jones APRN.CNM documented as of this encounter (statuses as of 05/16/2022) [facility] History of Past illness Narrative* Problem Noted Date Resolved Date Uterine size-date discrepancy, third trimester 1 07/02/2018 07/09/2019 Overview: 04/24/19-Growth US for size less than dates. EFW is 6 lb 2 oz, which is at the 31st percentile. STEPHEN 19.6. Michelle Jones APRN.CNM Encounter for supervision of normal in first trimester 09/25/2018 07/09/2019 size inconsistent with dates 09/25/2018 04/16/2019 Overview: 09/25/18-Dating U/S ordered for 2 weeks. Establish SANTOSH at that time. Michelle Jones APRN.CNM documented as of this encounter (statuses as of 11/20/2022) [facility] History of Past illness Narrative* Problem Noted Date Resolved Date Uterine size-date discrepancy, third trimester 1 07/02/2018 07/09/2019 Overview: 04/24/19-Growth US for size less than dates. EFW is 6 lb 2 oz, which is at the 31st percentile. STEPHEN 19.6. Michelle Jones APRN.CNM Encounter for supervision of normal in first trimester 09/25/2018 07/09/2019 size inconsistent with dates 09/25/2018 04/16/2019 Overview: 09/25/18-Dating U/S ordered for 2 weeks. Establish SANTOSH at that time. Michelle Jones APRN.CNM documented as of this encounter (statuses as of 11/23/2022) [facility] History of Past illness Narrative* Problem Noted Date Resolved Date Uterine size-date discrepancy, third trimester 1 07/02/2018 07/09/2019 Overview: 04/24/19-Growth US for size less than dates. EFW is 6 lb 2 oz, which is at the 31st percentile. STEPHEN 19.6. Michelle Jones APRN.CNM Encounter for supervision of normal in first trimester 09/25/2018 07/09/2019 size inconsistent with dates 09/25/2018 04/16/2019 Overview: 09/25/18-Dating U/S ordered for 2 weeks. Establish SANTOSH at that time. Michelle Jones APRN.CNM documented as of this encounter (statuses as of 11/23/2022) [facility] History of Past illness Narrative* Problem Noted Date Resolved Date Uterine size-date discrepancy, third trimester 1 07/02/2018 07/09/2019 Overview: 04/24/19-Growth US for size less than dates. EFW is 6 lb 2 oz, which is at the 31st percentile. STEPHEN 19.6. Michelle Jones APRN.CNM Encounter for supervision of normal in first trimester 09/25/2018 07/09/2019 size inconsistent with dates 09/25/2018 04/16/2019 Overview: 09/25/18-Dating U/S ordered for 2 weeks. Establish SANTOSH at that time. Michelle Jones APRN.CNM documented as of this encounter (statuses as of 12/14/2022) [facility] History of Past illness Narrative* Problem Noted Date Diagnosed Date Resolved Date Uterine size-date discrepanc y, third trimester 05/02/2019 07/09/2019 Overview: 04/24/19-Growth US for size less than dates. EFW is 6 lb 2 oz, which is at the 31st percentile. STEPHEN 19.6. Michelle Jones APRN.CNM Encounter for supervision of normal in first trimester 09/25/2018 07/09/2019 size inconsistent with dates 09/25/2018 04/16/2019 Overview: 09/25/18-Dating U/S ordered for 2 weeks. Establish SANTOSH at that time. Michelle Jones APRN.CNM documented as of this encounter (statuses as of 03/01/2023) [facility] N[facility]* Chief Complaint FU ON REFERRAL FOR A NXIETY AUB Reason for Visit Generalized anxiety disorder [facility] Work Phone: Evaluation note* Diagnosis Onset Date Resolution Status Generalized anxiety disorder acute [facility] Work Phone: Evaluation note* Diagnosis Encounter for gynecological examination with abnormal finding- Primary Routine gynecological examination Abnormal uterine bleeding (AUB) Malaise and fatigue Other malaise and fatigue Acne vulgaris Other acne Hirsutism [facility]* Diagnosis Encounter for IUD insertion- Primary Encounter for insertion of intrauterine contraceptive device [facility]* Diagnosis Surveillance of previously prescribed intrauterine contraceptive device- Primary Urinary frequency [facility]* Diagnosis Intrauterine contraceptive device threads lost, initial encounter- Primary Abnormal uterine bleeding (AUB) [facility] Diagnosis Intrauterine contraceptive device threads lost, initial encounter [facility]* Diagnosis Encounter for IUD insertion- Primary Encounter for insertion of intrauterine contraceptive device [facility]* Diagnosis Onset Date Resolution Status Generalized anxiety disorder chronic Generalized anxiety disorder chronic Cystitis acute [facility] physical exam [facility] Work Phone: Evaluation note* Diagnosis Encounter for gynecological examination (general) (routine) without abnormal findings- Primary Encounter for routine checking of intrauterine contraceptive device (IUD) [facility] Diagnosis Encounter for gynecological examination (general) (routine) without abnormal findings- Primary Unintended weight gain Abnormal weight gain Screening for cervical cancer Screening for malignant neoplasm of the cervix Encounter for screening for human papillomavirus (HPV) Special screening examination for human papillomavirus (HPV) documented in this encounter [facility] note* Diagnosis Abnormal vaginal bleeding- Primary Other specified noninflammatory disorder of vagina Family history of thyroid disease Family history of other endocrine and metabolic diseases Postcoital and contact bleeding Postcoital bleeding IUD (intrauterine device) in place Presence of intrauterine contraceptive device documented in this encounter [facility] noteNo assessment information availableGlendale [facility] Work Phone: Reason for referral (narrative)* Outpatient Procedure (Routine) - Pending Review Specialty Diagnoses / Procedures Referred By Ruby puckett Referred To Contact [facility] Diagnoses Abnormal uterine bleeding (AUB) Procedures INSERT INTRAUTERINE DEVICE LEVONORGESTREL IU 52MG 5 YR INSERT INTRAUTERINE DEVICE Michelle Jones APRN.SATYA [address] [place] [address] [facility] [address] [place] [address] Referral ID Status Reason Start Date Expiration Date Visits Requested Visits Authorized [id number] Pending Review Auto-Generat ed Referral 01/16/2022 01/16/2023 1 1 [facility] for referral (narrative)* Outpatient Procedure (Routine) - Pending Review Specialty Diagnoses / Procedures Referred By Contac t Referred To Contact [facility] Diagnoses Encounter for IUD insertion Procedures INSERT INTRAUTERINE DEVICE LEVONORGESTREL IU 52MG 5 YR INSERT INTRAUTERINE DEVICE Michelle Jones APRN.CNM [address] [place] [address] [facility] [address] [place] [address] Referral ID Status Reason Start Date Expiration Date Visits Requested Visits Authorized [id number] Pending Review Auto-Generat ed Referral 04/04/2023 1 1 [facility] for referral (narrative)* Outpatient Procedure (Routine) - Pending Review Specialty Diagnoses / Procedures Referred By Contac t Referred To Contact [facility] Diagnoses Intrauterine contraceptive device threads lost, initial encounter Abnormal uterine bleeding (AUB) Procedures INSERT INTRAUTERINE DEVICE LEVONORGESTREL IU 52MG 5 YR INSERT INTRAUTERINE DEVICE Courtney Yost APRN.CNP [address] [place] [address] [facility] [address] [place] [address] Referral ID Status Reason Start Date Expiration Date Visits Requested Visits Authorized [id number] Pending Review Auto-Generat ed Referral 11/22/2022 11/22/2023 1 1 * Diagnostic Procedure Only (Routine) - Closed Specialty Diagnoses / Procedures Referred By Ruby puckett Referred To Contact [facility] Diagnoses Intrauterine contraceptive device threads lost, initial encounter Procedures PELVIC US WHI US PELVIC NONOBSTETRIC REAL-TIME IMAGE COMPLETE Courtney Yost APRN.CNP [address] [place] [address] [facility] [address] [place] [address] Referral ID Status Reason Start Date Expiration Date V isits Requested Visits Authorized [id number] Closed Auto-Generate d Referral 11/22/2022 06/17/2023 1 1 [facility] for referral (narrative)* Outpatient Procedure (Routine) - Pending Review Specialty Diagnoses / Procedures Referred By Ruby puckett Referred To Contact [facility] Diagnoses Encounter for IUD insertion Procedures INSERT INTRAUTERINE DEVICE LEVONORGESTREL IU 52MG 5 YR INSERT INTRAUTERINE DEVICE Courtney Yost APRN.CNP [address] [place] [address] [facility] [address] [place] [address] Referral ID Status Reason Start Date Expiration Date Visits Requested Visits Authorized [id number] Pending Review Auto-Generat ed Referral 12/13/2022 12/13/2023 1 1 [facility] for referral (narrative)No reason for referral information availableGriffithville [facility] Work Phone: Summary Purpose Family History No Family History Records Found Relationship Condition Age at Onset Recorded Date/T frankie Not Specified Coronary artery disease Unknown Alcoholism in family Unknown Anemia Unknown Anxiety Unknown Kidney disorder Unknown Hypertension Unknown Disorder of thyroid Unknown Cerebrovascular accident (CVA) Unknown Advance Directives No Advanced Directives Records Found Advance Directive Response Recorded Date/ Time Living Will No May 24 8:25am Power of Electronic Communications Technician No May 24, 2019 8:25am Medications Administered Section Inactive Administered Medications - up to 3 most recent administrations Medication Order MAR Action Action Date Dose Rate Site levonorgestrel 21 mcg/24 hours (8 yrs) 52 mg 1 Each intrauterine device (MIRENA) 1 Each, INTRAUTERINE, ONCE (UP TO 30 DAYS AMB), 1 dose, On Sun12/13/22 at 1430, Hazardous Potential Reproductive Risk Drug: Use appropriate PPE. Given 12/13/2022 2:04 PM EDT 1 Each Chief Complaint and Reason for Visit Chief Complaint Anxiety 7 [facility] [employer] [facility] Reason for Visit Generalized anxiety disorder Generalized anxiety disorder [employer] physical exam Chief Complaint Anxiety 7 [facility] [employer] PH[employer] Other specified health status Reason for Visit Generalized anxiety disorder Generalized anxiety disorder [employer] physical exam Chief Complaint Admit Date med check January 01, 2025 5:44 pm Additional Source Comments INFORMATION SOURCE (unrecogn ized section and content) DATE CREATED AUTHOR [facility]11/2017 [facility] DATE CREATED AUTHOR AUTHOR'S ORGANIZ ATION 02/16/2020 [facility] DATE CREATED AUTHOR AUTHOR'S ORGANIZ ATION 12/09/2024 [facility] DATE CREATED AUTHOR AUTHOR'S ORGANIZ ATION 01/05/2025 [facility] Source Comments (unrecognize d section and content) In the event this informatio n is protected by the Federal Confidentiality of Alcohol and Drug Abuse Patient Records regulations: The Federal rules restrict any use of the information to criminally investigate or prosecute any alcohol or drug abuse patient.[facility] the event this information is protected by the Federal Confidentiality of Alcohol and Drug Abuse Patient Records regulations: The Federal rules restrict any use of the information to criminally investigate or prosecute any alcohol or drug abuse patient.[facility] HospitalIn the event this information is protected by the Federal Confidentiality of Alcohol and Drug Abuse Patient Records regulations: The Federal rules restrict any use of the information to criminally investigate or prosecute any alcohol or drug abuse patient.[facility] HospitalIn the event this information is protected by the Federal Confidentiality of Alcohol and Drug Abuse Patient Records regulations: The Federal rules restrict any use of the information to criminally investigate or prosecute any alcohol or drug abuse patient.[facility] HospitalIn the event this information is protected by the Federal Confidentiality of Alcohol and Drug Abuse Patient Records regulations: The Federal rules restrict any use of the information to criminally investigate or prosecute any alcohol or drug abuse patient.[facility] HospitalIn the event this information is protected by the Federal Confidentiality of Alcohol and Drug Abuse Patient Records regulations: The Federal rules restrict any use of the information to criminally investigate or prosecute any alcohol or drug abuse patient.[facility] HospitalIn the event this information is protected by the Federal Confidentiality of Alcohol and Drug Abuse Patient Records regulations: The Federal rules restrict any use of the information to criminally investigate or prosecute any alcohol or drug abuse patient.[facility] HospitalIn the event this information is protected by the Federal Confidentiality of Alcohol and Drug Abuse Patient Records regulations: The Federal rules restrict any use of the information to criminally investigate or prosecute any alcohol or drug abuse patient.[facility] HospitalIn the event this information is protected by the Federal Confidentiality of Alcohol and Drug Abuse Patient Records regulations: The Federal rules restrict any use of the information to criminally investigate or prosecute any alcohol or drug abuse patient.[facility] HospitalIn the event this information is protected by the Federal Confidentiality of Alcohol and Drug Abuse Patient Records regulations: The Federal rules restrict any use of the information to criminally investigate or prosecute any alcohol or drug abuse patient.[facility] HospitalIn the event this information is protected by the Federal Confidentiality of Alcohol and Drug Abuse Patient Records regulations: The Federal rules restrict any use of the information to criminally investigate or prosecute any alcohol or drug abuse patient.[facility] Reason for Visit (unrecogniz ed section and content) Reason Comments Well Woman Specialty Diagnoses / Procedures Referred By Ruby puckett Referred To Contact [facility] Diagnoses annual Procedures OFFICE/OUTPATIENT ESTABLISHED HIGH MDM 40-54 MIN EST [facility] ANNUAL PATIENT Michelle Jones APRN.CNM [address] [place] [address] Michelle Jones APRN.CNM [address] [place] [address] Referral ID Status Reason Start Date Expiration Date Visits Re quested Visits Authorized [id number] Closed 01/03/2022 06/17/2022 1 1 Reason Onset Date Comments Insertion Of IUD 04/04/2022 Specialty Diagnoses / Procedures Referred By Ruby puckett Referred To Contact [facility] Diagnoses Abnormal uterine bleeding (AUB) Encounter for insertion of intrauterine contraceptive device Encounter for removal of intrauterine contraceptive device Procedures INSERT INTRAUTERINE DEVICE LEVONORGESTREL IU 52MG 5 YR INSERT INTRAUTERINE DEVICE REMOVE INTRAUTERINE DEVICE Michelle Jones APRN.CNM [address] [place] [address] [facility] [address] [place] [address] Referral ID Status Reason Start Date Expiration Date V isits Requested Visits Authorized [id number] Closed Auto-Generate d Referral 01/25/2022 06/17/2022 1 1 Reason Comments Follow Up IUD placement Urinary Problem Reason Comments iud check Specialty Diagnoses / Procedures Referred By Ruby puckett Referred To Contact Gynecology / [facility] Diagnoses unable to feel IUD strings. pt leaving for vacation on 11/25/22 Procedures OFFICE/OUTPATIENT ESTABLISHED [facility] 10-19 MIN EST [facility] PATIENT Courtney Yost APRN.STAFFING CONSULTANT [address] [place] [address] Courtney Yost APRN.CNP [address] [place] [address] Referral ID Status Reason Start Date Expiration Date V isits Requested Visits Authorized [id number] Authorized 11/22/2022 06/17/2023 1 99 Reason Comments IUD Specialty Diagnoses / Procedures Referred By Ruby puckett Referred To Contact [facility] Diagnoses Intrauterine contraceptive device threads lost, initial encounter Procedures PELVIC US [facility] US PELVIC NONOBSTETRIC REAL-TIME IMAGE COMPLETE Courtney Yost APRN.STAFFING CONSULTANT [address] [place] [address] [address] Referral ID Status Reason Start Date Expiration Date V isits Requested Visits Authorized [id number] Closed Auto-Generate d Referral 11/22/2022 06/17/2023 1 1 Reason Onset Date Comments Insertion Of IUD 12/13/2022 Specialty Diagnoses / Procedures Referred By Ruby puckett Referred To Contact [facility] Diagnoses Intrauterine contraceptive device threads lost, initial encounter Abnormal uterine bleeding (AUB) Encounter for insertion of intrauterine contraceptive device Encounter for removal of intrauterine contraceptive device Procedures INSERT INTRAUTERINE DEVICE LEVONORGESTREL IU 52MG 5 YR INSERT INTRAUTERINE DEVICE REMOVE INTRAUTERINE DEVICE Courtney Yots APRN.STAFFING CONSULTANT [address] [place] [address] [id number] [place] [address] Referral ID Status Reason Start Date Expiration Date Visits Requested Visits Authorized [id number] Authorized Auto-Generat ed Referral 12/13/2022 06/17/2023 2 2 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 Tonny Watson MD Primary Care Provider Active Team Status: Inactive Member Role Status Dates Dr. Tonny Watson MD Primary Care Provider, Refer ring Provider Active Joaquin Persaud DIET ASSISTANT, DIET ASSISTANT-C Attending Provider Active Team Status: Inactive Member Role Status Dates Dr. Tonny Watson MD Primary Care Provider, Refer ring Provider Active INES Oconnell Attending Provider Active Team Status: Inactive Member Role Status Dates Dr. Tonny Watson MD Primary Care Provider Active Shalom CHACON PA Attending Provider, Referring Provi arpita Active Team Status: Inactive Member Role Status Dates Dr. Tonny Watson MD Primary Care Provider Active Courtney Yost DIET ASSISTANT, DIET ASSISTANT-C Attending Provider, Referring Pro vider Active Team Status: Active Member Role/Relationship Status Dates INES Torres Family Provider Active Dr. Tonny Watson MD Primary Care Provider Active Team Status: Inactive Member Role/Relationship Status Dates Dr. Tonny Watson MD Primary Care Provider Active Start: January 01, 2025 End: January 01, 2025 Dr. Tonny Watson MD Attending Provider Active Start: January 01, 2025 End: January 01, 2025 Dr. Tonny Watson MD Referring Provider Active Start: January 01, 2025 End: January 01, 2025 FOR RECORDS PERTAINING TO PATIENTS WHO ARE OR HAVE BEEN ENROLLED IN A CHEMICAL DEPENDENCY/SUBSTANCEABUSE PROGRAM, SOME INFORMATION MAY BE OMITTED. This clinical summary was aggregated from multiple sources. Caution should be exercised in using it in the provision of clinical care. This summary normalizes information from multiple sources, and as a consequence, information in this document may materially change the coding, format and clinical context of patient data. In addition, data may be omitted in some cases. CLINICAL DECISIONS SHOULD BE BASED ON THE PRIMARY CLINICAL RECORDS. [facility] [employer] [facility]. provides no warranty or guarantee of the accuracy or completeness of information in this document.
== END | disposition home or self-care (01) ==
PROVIDERS: PCP Internal Medicine; Referring Provider Advanced Practice Midwife; Visit Provider Advanced Practice Midwife
DX: N93.0 Postcoital and contact bleeding (principal); Z83.49 Family history of other endocrine, nutritional and metabolic diseases
CPT/HCPCS: 36415; 84439; 84443